=== PATIENT | male | born 1935 | race Caucasian/White ===

== ENCOUNTER 2017-08-01 08:28 | Emergency (ER) | payer OTHER ==
[~2017-08-01] VITALS: Ht 167.6 cm; Wt 84.4 kg
[~2017-08-01 08:28] MED LIST: ASPI81CH PO; DIPH50 PO; FAMO40 PO; INDO50 PO; METPRE4DP PO; NEBI10 PO; Percocet 5-3251 EACH PO
[2017-08-01] MEDS ORDERED: IBUP800 PO (10:50)
== END 2017-08-01 11:15 | disposition home or self-care (01) ==
LOC: ER 08:28
DX: M25.551 Pain in right hip (principal); I10 Essential (primary) hypertension; Z79.51 Long term (current) use of inhaled steroids; Z79.899 Other long term (current) drug therapy; Z87.891 Personal history of nicotine dependence; W19.XXXA Unspecified fall, initial encounter
CPT/HCPCS: 73502; 99283

== ENCOUNTER 2017-11-09 09:43 | Day surgery (SDC) | payer OTHER ==
[~2017-11-09] VITALS: Ht 167.6 cm; Wt 85.9 kg
[~2017-11-09 09:43] MED LIST changes: +IBUP800 PO
[2017-11-09] MEDS ORDERED: LISI20 (10:21)
[2017-11-09] MEDS ORDERED: TAMS.4ER (10:21)
== END 2017-11-09 13:10 | disposition home or self-care (01) ==
LOC: ORSCSDS 09:43
PROVIDERS: Internal Medicine Gastroenterology
PROC: 0DBL8ZX Excision of Transverse Colon, Via Natural or Artificial Opening Endoscopic, Diagnostic (ICD-10-PCS; principal; 2017-11-09 11:15)
PROC: 0DBK8ZX Excision of Ascending Colon, Via Natural or Artificial Opening Endoscopic, Diagnostic (ICD-10-PCS; principal; 2017-11-09 11:15)
DX: Z86.010 Personal history of colon polyps (principal); K57.30 Diverticulosis of large intestine without perforation or abscess without bleeding; D12.2 Benign neoplasm of ascending colon; D12.3 Benign neoplasm of transverse colon; K64.8 Other hemorrhoids; I10 Essential (primary) hypertension; E78.2 Mixed hyperlipidemia; Z79.82 Long term (current) use of aspirin; Z79.899 Other long term (current) drug therapy
CPT/HCPCS: 88305; J1980

== ENCOUNTER 2019-05-11 10:53 | Emergency (ER) | payer OTHER ==
[~2019-05-11] VITALS: Ht 170.2 cm; Wt 90.7 kg
[~2019-05-11 10:53] MED LIST changes: +LISI20; +TAMS.4ER
== END 2019-05-11 12:15 | disposition home or self-care (01) ==
LOC: ER 10:53
DX: S60.221A Contusion of right hand, initial encounter (principal); I10 Essential (primary) hypertension; Z79.899 Other long term (current) drug therapy; Z79.82 Long term (current) use of aspirin; Z87.891 Personal history of nicotine dependence; W01.0XXA Fall on same level from slipping, tripping and stumbling without subsequent striking against object, initial encounter
CPT/HCPCS: 29125; 73130; 99283-25

== ENCOUNTER 2020-02-21 16:12 | Emergency (ER) | payer OTHER ==
[~2020-02-21] VITALS: Ht 167.6 cm; Wt 90.7 kg
== END 2020-02-21 17:26 | disposition home or self-care (01) ==
LOC: ER 16:12
DX: M25.512 Pain in left shoulder (principal); Z79.82 Long term (current) use of aspirin; Z79.899 Other long term (current) drug therapy; V89.9XXA Person injured in unspecified vehicle accident, initial encounter
CPT/HCPCS: 73010; 99283-25

== ENCOUNTER 2020-06-20 12:58 | Emergency (ER) | payer OTHER ==
[~2020-06-20] VITALS: Ht 167.6 cm; Wt 99.8 kg
[~2020-06-20 12:58] MED LIST changes: -LISI20; +LISI20 PO; -TAMS.4ER; +TAMS.4ER PO
[2020-06-21] MEDS ORDERED: METO25ER PO (10:02)
[2020-06-21] MEDS ORDERED: OXYC10TA19 PO (10:03)
== END 2020-06-20 16:38 | disposition left against medical advice (07) ==
LOC: ER 12:58
DX: M79.605 Pain in left leg (principal); Z53.21 Procedure and treatment not carried out due to patient leaving prior to being seen by health care provider
CPT/HCPCS: 99282; 99283; J1644; J7030

== ENCOUNTER 2020-06-21 08:53 | Day surgery (SDC) | payer OTHER ==
[~2020-06-21] VITALS: Ht 167.6 cm; Wt 99.8 kg
[2020-06-21 09:50] LABS: BASOPHILS ABSOLUTE AUTO 0.07 K/mm3 (0.00-0.23); BASOPHILS PERCENT AUTO 1 % (0-2); EOSINOPHILS ABSOLUTE AUTO 0.04 K/mm3 (0.00-0.68); EOSINOPHILS PERCENT AUTO 1 % (0-6); Hematocrit 43.3 % (37.0-53.0); IMMATURE GRAN ABSOLUTE AUTO 0.01 K/mm3 (0.00-0.10); IMMATURE GRAN PERCENT AUTO 0 % (0-1); LYMPHOCYTES ABSOLUTE AUTO 1.75 K/mm3 (0.84-5.20); LYMPHOCYTES PERCENT AUTO 29 % (21-46); MONOCYTES ABSOLUTE AUTO 0.53 K/mm3 (0.16-1.47); MONOCYTES PERCENT AUTO 9 % (4-13); Mean Corpuscular HGB 30.8 pg (26.0-34.0); Mean Corpuscular HGB Conc 32.3 g/dL (31.5-36.5); Mean Corpuscular Volume 95 fL (80-100); Mean Platelet Volume 8.6 fL (9.1-12.4); NEUTROPHILS PERCENT AUTO 61 % (41-73); Platelet Count 174 K/mm3 (150-400); RDW Coefficient Variation 12.8 % (11.7-14.2); RDW Standard Deviation 45.1 fL (35.1-46.3); Red Blood Cell Count 4.54 M/mm3 (4.30-5.90)
[2020-06-21] MEDS ORDERED: METO25ER PO (10:02)
[2020-06-21] MEDS ORDERED: OXYC10TA19 PO (10:03)
[2020-06-21 10:08] LABS: Alanine Aminotransfer (ALT/SGP 16 U/L (12-78); Albumin, Blood 3.2 g/dL (3.4-5.0); Albumin/Globulin Ratio 0.8 (0.8-1.8); Alk Phos 108 U/L (50-136); Anion Gap 5 mmol/L (6-16); Aspartate Aminotrans (AST/SGOT 12 U/L (12-37); Bilirubin, Total 0.4 mg/dL (0.1-1.0); Blood Urea Nitrogen 11 mg/dL (8-24); Bun/Creatinine Ratio 11.8 (12.0-20.0); CO2, Blood 29 mmol/L (21-32); Calcium, Blood 8.3 mg/dL (8.5-10.1); Chloride, Blood 108 mmol/L (98-108); Creatinine, Blood 0.93 mg/dL (0.60-1.20); Globulin, Blood 3.8 g/dL (2.2-4.0); Glomerular Filtration Rate >60 (60-); Glucose, Blood 88 mg/dL (70-99); Sodium, Blood 142 mmol/L (136-145)
[2020-06-21 10:33] LABS: Influenza A, PCR Negative (NEGATIVE); Influenza B, PCR Negative (NEGATIVE); Resp Syncytial Virus, PCR Negative (NEGATIVE); SARS-Cov-2 (COVID-19) PCR, MMC Negative (NEGATIVE)
--- NOTE | 2020-06-21 16:07 | NUR ---
RIGHT LEG INSERTION SITE SOFT AND NONTENDER. DRESSING SARA AND INTACT. PATIENT ATE A SMALL MEAL AND IS NOW HAVING AN CARDIAC ECHO DONE.
--- NOTE | 2020-06-21 17:00 | NUR ---
PATIENT AMBULATED TO BATHROOM TO VOID WITH CANE. IV SITE DCED WITH CATHETER INTACT.
--- NOTE | 2020-06-21 17:10 | NUR ---
PATIENT DISCHARGED HOME STABLE. VERBALIZED UNDERSTANDING OF DISCHARGE INSTRUCTIONS AND PRECAUTIONS. QUESTIONS ANSWERED. DRESSING TO RIGHT LOWER LEG DRY AND INTACT. EXPLANATION OF PROCEDURE GIVEN TO DAUGHTERS. EXPLAINED NEED TO TAKE BLOOD THINNERS PRESCRIBED BY PRIMARY DOCTOR. TAKEN TO CAR IN WHEELCHAIR. ALERT AND ORIENTED.
== END 2020-06-21 17:10 | disposition home or self-care (01) ==
LOC: ER 08:53 → MHTC 13:16
PROVIDERS: Physician Assistant
DX: I82.401 Acute embolism and thrombosis of unspecified deep veins of right lower extremity (principal); Z87.891 Personal history of nicotine dependence; Z79.899 Other long term (current) drug therapy; Z79.82 Long term (current) use of aspirin; Z20.822 Contact with and (suspected) exposure to COVID-19
CPT/HCPCS: 0241U; 36010; 36415; 37187; 37238; 37252; 37253; 71046; 75820; 76937; 80053; 85025; 85347; 93306; 99152; 99153; 99284-25; C1725; C1757; C1769; C1876; C1887; C1894; J0360; J1644; J2250; J3010; J7030; Q9967

== ENCOUNTER 2023-05-14 05:53 | Day surgery (SDC) | payer OTHER ==
[2023-05-14] VITALS (19 sets, daily range): BP systolic 94–195; BP diastolic 46–149
[~2023-05-14] VITALS: Ht 160 cm; Wt 103.4 kg
[~2023-05-14 05:53] MED LIST changes: +BUME1 PO; +HYDR10 PO; +LORA10ER PO; +METO25ER PO; +METOPROLOL SUCC25 MG PO; +OXYC10TA19 PO; +Oxycodone HCl20 M1 PO; +PERCOCET 10-321 EA10 PO; +POTA10T PO; +TRAM50 PO
[2023-05-14] MEDS ORDERED: BUME1 PO (06:49)
[2023-05-14] MEDS ORDERED: ROSU10TA PO (06:50)
[2023-05-14] MEDS ORDERED: POTA10T PO (06:50)
[2023-05-14] MEDS ORDERED: ALBU90OI INH (06:51)
[2023-05-14] MEDS ORDERED: XARELTO20 MG PO (06:52)
[2023-05-14] MEDS ORDERED: LISI20 (06:53)
--- NOTE | 2023-05-14 07:06 | NUR ---
Wheelchaired into Day Surgery. History, Chart, Medications and Allergies reviewed before start of procedure. Pre-Op teaching done. Pt verbalizes understanding.
--- NOTE | 2023-05-14 16:52 | NUR ---
SHIFT SUMMARY PT A&OX3/OCC FORGETFUL, VSS/2LNC, NIKI PO REG DIET, VOIDING/INCONTINENT/ATTENDS ON, WORKING WITH PHYSICAL THERAPY AT THIS TIME, PAIN MANAGED, IVF/ABX PER EMAR. WILL REPORT TO ONCOMING NOC RN.
[2023-05-15 05:37] VITALS: BP 112/63
--- NOTE | 2023-05-15 06:17 | NUR ---
SHIFT SUMMARY POD 1 L BRYON PT ABLE TO SLEEP T/O NIGHT. PAIN MANAGED PER EMAR. TOLERATING PO INTAKE. INCONTINENT WITH VOIDING. SOME MILD BRUISING AROUND THE INCISION ON THE L HIP. PT UP IN CHAIR THIS MORNING, DRESSED. VSS. NO OTHER CONCERNS AT THIS TIME. CALL LIGHT WITHIN REACH
[2023-05-15 06:30] LABS: BASOPHILS ABSOLUTE AUTO 0.01 K/mm3 (0.00-0.23); BASOPHILS PERCENT AUTO 0 % (0-2); EOSINOPHILS PERCENT AUTO 0 % (0-6); Hematocrit 33.2 % (37.0-53.0); Hemoglobin 10.9 g/dL (13.5-17.5); IMMATURE GRAN ABSOLUTE AUTO 0.03 K/mm3 (0.00-0.10); IMMATURE GRAN PERCENT AUTO 0 % (0-1); LYMPHOCYTES ABSOLUTE AUTO 1.64 K/mm3 (0.84-5.20); LYMPHOCYTES PERCENT AUTO 18 % (21-46); MONOCYTES ABSOLUTE AUTO 0.84 K/mm3 (0.16-1.47); MONOCYTES PERCENT AUTO 9 % (4-13); Mean Corpuscular HGB Conc 32.8 g/dL (31.5-36.5); Mean Corpuscular Volume 101 fL (80-100); Mean Platelet Volume 9.4 fL (9.1-12.4); NEUTROPHILS ABSOLUTE AUTO 6.72 K/mm3 (1.96-9.15); NEUTROPHILS PERCENT AUTO 73 % (41-73); Platelet Count 99 K/mm3 (150-400); RDW Coefficient Variation 14.1 % (11.7-14.2); RDW Standard Deviation 51.8 fL (35.1-46.3); White Blood Cell Count 9.24 K/mm3 (4.00-11.30)
[2023-05-15 06:51] LABS: Bun/Creatinine Ratio 15.2 (12.0-20.0); Calcium, Blood 7.3 mg/dL (8.5-10.1); Creatinine, Blood 1.05 mg/dL (0.60-1.20); Magnesium, Blood 1.9 mg/dL (1.6-2.4); Potassium, Blood 3.7 mmol/L (3.5-5.5)
[2023-05-15 07:32] VITALS: BP 105/57
[2023-05-15] MEDS ORDERED: ELIQUIS2.5 MG PO (09:54)
[2023-05-15] MEDS ORDERED: OXYC5 PO (10:01)
[2023-05-15 12:45] VITALS: BP 93/49
[2023-05-15 13:45] LABS: Hematocrit 33.5 % (37.0-53.0); Hemoglobin 11.1 g/dL (13.5-17.5); Mean Corpuscular HGB 32.9 pg (26.0-34.0); Mean Corpuscular HGB Conc 33.1 g/dL (31.5-36.5); Mean Corpuscular Volume 99 fL (80-100); Mean Platelet Volume 9.3 fL (9.1-12.4); Platelet Count 105 K/mm3 (150-400); RDW Standard Deviation 50.9 fL (35.1-46.3); Red Blood Cell Count 3.37 M/mm3 (4.30-5.90); White Blood Cell Count 10.04 K/mm3 (4.00-11.30)
[2023-05-15 13:46] LABS: Base Excess Venous -0.1 mmol/L; Bicarbonate Venous 24.6 mmol/L (24.0-30.0); PCO2 Venous 33.9 mmHg (38-42); pH Blood Venous 7.46 (7.34-7.37)
[2023-05-15 14:14] LABS: Albumin, Blood 2.4 g/dL (3.4-5.0); Albumin/Globulin Ratio 0.8 (0.8-1.8); Bilirubin, Direct 0.6 mg/dL (0.0-0.3); Bilirubin, Indirect 0.6 mg/dL (0.1-0.7); Bilirubin, Total 1.2 mg/dL (0.1-1.0); Globulin, Blood 3.1 g/dL (2.2-4.0); Total Protein, Blood 5.5 g/dL (6.4-8.2)
[2023-05-15 15:22] VITALS: BP 113/57
[2023-05-15 16:39] LABS: Adenovirus F 40/41 Not Detected (NOT DETECT); Astrovirus Not Detected (NOT DETECT); Campylobacter Sp Not Detected (NOT DETECT); Cryptosporidium Not Detected (NOT DETECT); Cyclospora Cayetanensis Not Detected (NOT DETECT); E. Coli O157 Not Detected (NOT DETECT); Entamoeba Histolytica Not Detected (NOT DETECT); Enteroaggregative E. coli-EAEC Not Detected (NOT DETECT); Enteropathogenic E. coli-EPEC Not Detected (NOT DETECT); Enterotoxigenic E. coli-ETEC Not Detected (NOT DETECT); Giardia Lamblia Not Detected (NOT DETECT); Norovirus GI/GII Not Detected (NOT DETECT); Plesiomonas Shigelloides Not Detected (NOT DETECT); Rotavirus A Not Detected (NOT DETECT); Salmonella Sp Not Detected (NOT DETECT); Sapovirus Not Detected (NOT DETECT); Shiga Toxin-prod E. coli-STEC Not Detected (NOT DETECT); Shigella/Enteroin E. coli-EIEC Not Detected (NOT DETECT); Vibrio Cholerae Not Detected (NOT DETECT); Vibrio Sp Not Detected (NOT DETECT); Yersinia Enterocolitica Not Detected (NOT DETECT)
--- NOTE | 2023-05-15 18:02 | NUR ---
SHIFT SUMMARY PATIENT A/O X3 POD1 L BRYON, AQUACEL C/D/I W/ BRUISING SURROUNDING THE AREA. PATIENT HAS HAD SEVERAL BOUTS OF DIARRHEA AND VOMITING TODAY AND STOOL SAMPLE WAS SENT. DR GODDARD WAS NOTIFIED THAT IT CAME BACK DETECTED W/ C-DIFF. PATIENT WAS STARTED ON ORAL VANCO AT THIS TIME. CONTINUOUS FLUIDS RUNNING AT THIS TIME. VOIDING OKAY. NOT MUCH ORAL INTAKE TODAY. WILL REPORT TO ONCOMING RN.
[2023-05-15 20:21] VITALS: BP 102/43
[2023-05-16 03:45] VITALS: BP 105/52
--- NOTE | 2023-05-16 05:38 | NUR ---
SHIFT SUMMARY POD 2 L BRYON PT ABLE TO REST T/O NIGHT. PAIN MANAGED PER EMAR. AQUACEL TO L HIP C/D/I. PT HAS BRUISING TO THE L HIP, UNCHANGED SINCE START OF SHIFT. PT UP TO THE BATHROOM, NO SUCESS. NO BOWEL MOVEMENTS DURING THIS SHIFT. INCONTINENT. TOLERING PO INTAKE. VSS. NO OTHER CONCERNS AT THIS TIME. CALL LIGHT WITHIN REACH
[2023-05-16 08:06] VITALS: BP 121/58
--- NOTE | 2023-05-16 13:41 | NUR ---
ASSUMED CARE: ASSUMED CARE OF THIS PT @1340 FROM KEO HODGES. PT ALERT AND ORIENTED X4, ABLE TO FOLLOW COMMANDS AND MAKE NEEDS KNOWN. PULSES STRONG AND EQUAL THROUGHOUT. STRENGTH EQUAL BILATERALLY. VSS. PT POST OP X1 FOR TOTAL L. HIP, DENIES PAIN AT THIS TIME. +1 EDEMA NOTED IN BLE. AMBULATING VIA SBA WITH FWW/GAITBELT. CALLS APPROPRIATELY. LR GTT @70ML/HR. CURRENTLY SITTING UP IN BED WATCHING TV. BED IN LOW, CALL LIGHT IN REACH.
[2023-05-16 15:03] VITALS: BP 130/62
--- NOTE | 2023-05-16 17:19 | NUR ---
SHIFT SUMMARY: PT REMAINS ALERT AND ORIENTED X4, ABLE TO FOLLOW COMMANDS AND MAKE NEEDS KNOWN. STRENGTH WEAK, EQUAL BILATERALLY. BP AND HR STABLE. AFEBRILE. SPO2 >96% ON ROOM AIR. RESPIRATIONS EVEN AND UNLABORED. PULSES STRONG AND EQUAL THROUGHOUT. +2 EDEMA NOTED IN BLE, PT STATES BASELINE. PT POST OP DAY ONE FOR L. TOTAL HIP. DRESSING OVERALL C/D/I. PT ABLE TO AMBULATE IN HALLWAY THIS SHIFT VIA SBA WITH FWW/GAITBELT. BRUISING NOTED ON L. HIP, MD AWARE. PT MEDICATED FOR PAIN PER EMAR. LR GTT @70ML/HR IN L. FOREARM. PT WITH POOR PO INTAKE, EDUCATION PROVIDED. DAUGHTER AT BEDSIDE THIS EVENING, UPDATED ON PT PLAN OF CARE WITH PERMISSION. POSSIBLE DISCHARGE IN AM. BED IN LOW, CALL LIGHT IN REACH, WILL REPORT TO ONCOMING RN.
[2023-05-16 21:47] VITALS: BP 106/53
[2023-05-17 02:54] VITALS: BP 123/63
[2023-05-17 07:02] VITALS: BP 136/64
--- NOTE | 2023-05-17 07:45 | NUR ---
SHIFT SUMMARY NOC. PT A/O X4. PT'S LEFT LATERAL HIP INCISION IS C/D/I. PURPLE BRUISING AROUND INCISION PRESENT, DOCTOR AWARE PER DAY SHIFT RN'S REPORT. PT PAIN CONTROLLED WITH ORAL PAIN MEDS. PT INCONTINENT OF URINE AND TOLERATING PO INTAKE. PT RESTED WITH EYES CLOSED AND CALL LIGHT IN REACH.
[2023-05-17] MEDS ORDERED: VANCOCIN HCL125 MG PO (13:19)
--- NOTE | 2023-05-17 17:52 | NUR ---
DISCHARGE SUMMARY POD3 L BRYON, A/OX4, VSS, TOLERATING PO, ADVANCED DIET TO REGULAR AT LUNCH AND HE WAS ABLE TO TOLERATE THAT WELL, PER HOSPITALIST NOTE HE IS MEDICALLY STABLE AND CAN REFER TO ORTHO PLANS FOR DISCHARGE, ORTHO DISCHARGE ALREADY IN PLACE, ADDED ABX TO HOME MED LIST [facility] A 5 DAY COURSE. IV ACCESS REMOVED, DISCUSSED DISCHARGE INSTRUCTIONS WITH THE PATIENT AND HIS DAUGHTER INCLUDING HOME CARE, MEDICATIONS, S/SX TO MONITOR FOR, AND FOLLOW UP APPOINTMENTS. PT REPORTS NOT HAVING A FOLLOW UP ALREADY SCHEDULED, EDUCATED TO REACH OUT TO ORTHO TO GET THAT APPOINTMENT SET UP OR VERIFY THE TIME IF ONE WAS ALREADY SCHEDULED. PT ESCORTED OTU VIA WC TO PRIVATE AUTO TO GO HOME.
== END 2023-05-17 17:08 | disposition home or self-care (01) ==
LOC: ORSCMMR 05:53 → ORD 08:00 → SURS 13:05 → ORSCMMR 05-17 17:08 → ORD 06-01 07:30
PROVIDERS: Internal Medicine; Orthopaedic Surgery
PROC: 0SRB0JZ Replacement of Left Hip Joint with Synthetic Substitute, Open Approach (ICD-10-PCS; principal; 2023-05-14 08:00)
DX: M16.12 Unilateral primary osteoarthritis, left hip (principal); Z86.718 Personal history of other venous thrombosis and embolism; Z79.01 Long term (current) use of anticoagulants; E78.5 Hyperlipidemia, unspecified; I10 Essential (primary) hypertension; Z87.891 Personal history of nicotine dependence; Z79.899 Other long term (current) drug therapy; E66.9 Obesity, unspecified; Z68.37 Body mass index [BMI] 37.0-37.9, adult
CPT/HCPCS: 36415; 72170; 74177; 80048; 80076; 82140; 82803; 83735; 85025; 85027; 87324; 87507; 94760; 97110; 97116; 97162; A9270; C1776; J0171; J0360; J0690; J0735; J1100; J1170; J1885; J2250; J2405; J2704; J2765; J2795; J3010; J7120; Q9967

== ENCOUNTER 2023-05-19 12:18 | Emergency (ER) | payer OTHER ==
[~2023-05-19] VITALS: Ht 167.6 cm; Wt 106.6 kg
[~2023-05-19 12:18] MED LIST changes: +ALBU90OI INH; +ELIQUIS2.5 MG PO; +LISI20; +OXYC5 PO; +ROSU10TA PO; +VANCOCIN HCL125 MG PO; +XARELTO20 MG PO
[2023-05-19 12:41] LABS: BASOPHILS ABSOLUTE AUTO 0.04 K/mm3 (0.00-0.23); BASOPHILS PERCENT AUTO 1 % (0-2); EOSINOPHILS ABSOLUTE AUTO 0.15 K/mm3 (0.00-0.68); EOSINOPHILS PERCENT AUTO 2 % (0-6); Hematocrit 29.3 % (37.0-53.0); Hemoglobin 9.6 g/dL (13.5-17.5); IMMATURE GRAN ABSOLUTE AUTO 0.11 K/mm3 (0.00-0.10); IMMATURE GRAN PERCENT AUTO 2 % (0-1); LYMPHOCYTES ABSOLUTE AUTO 1.25 K/mm3 (0.84-5.20); LYMPHOCYTES PERCENT AUTO 19 % (21-46); MONOCYTES ABSOLUTE AUTO 1.11 K/mm3 (0.16-1.47); MONOCYTES PERCENT AUTO 17 % (4-13); Mean Corpuscular HGB 32.7 pg (26.0-34.0); Mean Corpuscular HGB Conc 32.8 g/dL (31.5-36.5); Mean Corpuscular Volume 100 fL (80-100); Mean Platelet Volume 8.8 fL (9.1-12.4); NEUTROPHILS ABSOLUTE AUTO 3.95 K/mm3 (1.96-9.15); NEUTROPHILS PERCENT AUTO 60 % (41-73); Platelet Count 213 K/mm3 (150-400); RDW Coefficient Variation 13.6 % (11.7-14.2); Red Blood Cell Count 2.94 M/mm3 (4.30-5.90); White Blood Cell Count 6.61 K/mm3 (4.00-11.30)
[2023-05-19 13:06] LABS: Albumin, Blood 2.3 g/dL (3.4-5.0); Albumin/Globulin Ratio 0.6 (0.8-1.8); Bun/Creatinine Ratio 13.7 (12.0-20.0); Calcium, Blood 7.9 mg/dL (8.5-10.1); Creatinine, Blood 0.8 mg/dL (0.60-1.20); Globulin, Blood 4.1 g/dL (2.2-4.0); Potassium, Blood 3.7 mmol/L (3.5-5.5); Total Protein, Blood 6.4 g/dL (6.4-8.2)
[2023-05-19 17:00] VITALS: BP 154/98
== END 2023-05-19 17:15 | disposition home or self-care (01) ==
LOC: ER 12:18
PROVIDERS: Physician Assistant
DX: G89.18 Other acute postprocedural pain (principal); M25.552 Pain in left hip; A04.72 Enterocolitis due to Clostridium difficile, not specified as recurrent; I10 Essential (primary) hypertension; F17.220 Nicotine dependence, chewing tobacco, uncomplicated; Z79.899 Other long term (current) drug therapy; Z79.01 Long term (current) use of anticoagulants
CPT/HCPCS: 71045; 80053; 85025; 93971; 96374; 99284-25; J2405

== ENCOUNTER 2023-09-25 19:27 | Inpatient (IN) | payer OTHER ==
[~2023-09-25] VITALS: Ht 167.6 cm; Wt 114.9 kg
[2023-09-27 07:54] VITALS: BP 145/75
== END 2023-09-27 14:22 | disposition home or self-care (01) | DRG 291 ==
LOC: ER 19:27 → MEDS 19:28
PROVIDERS: ADMIT Student in an Organized Health Care Education/Training Program
DX: I13.0 Hypertensive heart and chronic kidney disease with heart failure and stage 1 through stage 4 chronic kidney disease, or unspecified chronic kidney disease (principal); I50.33 Acute on chronic diastolic (congestive) heart failure; N40.0 Benign prostatic hyperplasia without lower urinary tract symptoms; Z66 Do not resuscitate; K76.0 Fatty (change of) liver, not elsewhere classified; F10.90 Alcohol use, unspecified, uncomplicated; N18.2 Chronic kidney disease, stage 2 (mild); E66.9 Obesity, unspecified; E78.5 Hyperlipidemia, unspecified; F17.220 Nicotine dependence, chewing tobacco, uncomplicated; Z86.718 Personal history of other venous thrombosis and embolism; Z79.01 Long term (current) use of anticoagulants; Z90.49 Acquired absence of other specified parts of digestive tract; Z98.890 Other specified postprocedural states; Z79.899 Other long term (current) drug therapy; Z79.811 Long term (current) use of aromatase inhibitors; Z68.37 Body mass index [BMI] 37.0-37.9, adult

== ENCOUNTER → 2023-11-02 | Outpatient (CLI) | payer OTHER ==
[~2023-11-02] MED LIST changes: +JARDIANCE10 MG PO; +MICONAZOLE NITR85 GM TOP; -OXYC5 PO; +ZESTRIL40 M1 PO
[2023-11-02 14:30] LABS: BASOPHILS ABSOLUTE AUTO 0.04 K/mm3 (0.00-0.23); BASOPHILS PERCENT AUTO 1 % (0-2); EOSINOPHILS ABSOLUTE AUTO 0.04 K/mm3 (0.00-0.68); EOSINOPHILS PERCENT AUTO 1 % (0-6); Hematocrit 41.1 % (37.0-53.0); Hemoglobin 13.4 g/dL (13.5-17.5); IMMATURE GRAN ABSOLUTE AUTO 0.02 K/mm3 (0.00-0.10); IMMATURE GRAN PERCENT AUTO 0 % (0-1); LYMPHOCYTES ABSOLUTE AUTO 1.72 K/mm3 (0.84-5.20); LYMPHOCYTES PERCENT AUTO 32 % (21-46); MONOCYTES ABSOLUTE AUTO 0.34 K/mm3 (0.16-1.47); MONOCYTES PERCENT AUTO 6 % (4-13); Mean Corpuscular HGB 30.2 pg (26.0-34.0); Mean Corpuscular HGB Conc 32.6 g/dL (31.5-36.5); Mean Corpuscular Volume 93 fL (80-100); Mean Platelet Volume 9.1 fL (9.1-12.4); NEUTROPHILS ABSOLUTE AUTO 3.28 K/mm3 (1.96-9.15); NEUTROPHILS PERCENT AUTO 60 % (41-73); Platelet Count 193 K/mm3 (150-400); RDW Coefficient Variation 13.6 % (11.7-14.2); RDW Standard Deviation 46.5 fL (35.1-46.3); Red Blood Cell Count 4.43 M/mm3 (4.30-5.90); White Blood Cell Count 5.44 K/mm3 (4.00-11.30)
[2023-11-02 14:46] LABS: Alanine Aminotransfer (ALT/SGP 20 U/L (12-78); Albumin, Blood 3.4 g/dL (3.4-5.0); Albumin/Globulin Ratio 0.9 (0.8-1.8); Alk Phos 77 U/L (50-136); Anion Gap 8 mmol/L (3-11); Aspartate Aminotrans (AST/SGOT 21 U/L (12-37); Bilirubin, Total 0.7 mg/dL (0.1-1.0); Blood Urea Nitrogen 15 mg/dL (8-24); CO2, Blood 30 mmol/L (21-32); Calcium, Blood 8.4 mg/dL (8.5-10.1); Chloride, Blood 103 mmol/L (98-108); Cholesterol 141 mg/dL (50-200); Creatinine, Blood 0.94 mg/dL (0.60-1.20); Globulin, Blood 3.7 g/dL (2.2-4.0); Glomerular Filtration Rate 79 (60-); Glucose, Blood 117 mg/dL (70-99); HDL Cholesterol 70 mg/dL (>39); LDL/HDL RATIO 0.7; Low Density Lipoprotein Chol 52 mg/dL (0-110); Potassium, Blood 3.6 mmol/L (3.5-5.5); Sodium, Blood 137 mmol/L (136-145); Total Protein, Blood 7.1 g/dL (6.4-8.2); Triglycerides 94 mg/dL (30-160); Very Low Density Lipoprot Chol 18 mg/dL (6-32)
== END | disposition home or self-care (01) ==
LOC: LAB SHORT 13:30 → LAB 13:30
PROVIDERS: Family Medicine
DX: Z13.1 Encounter for screening for diabetes mellitus (principal); I50.32 Chronic diastolic (congestive) heart failure; L03.116 Cellulitis of left lower limb
CPT/HCPCS: 80053; 80061; 83036; 85025

== ENCOUNTER → 2024-02-29 | Outpatient (CLI) | payer OTHER ==
[~2024-02-29] MED LIST changes: +CALC.25 PO; +Crestor40 MG PO; +FURO80 PO; +LOSA25 PO; -ROSU10TA PO
[2024-02-29 16:32] LABS: BASOPHILS ABSOLUTE AUTO 0.04 K/mm3 (0.00-0.23); BASOPHILS PERCENT AUTO 0 % (0-2); EOSINOPHILS ABSOLUTE AUTO 0.02 K/mm3 (0.00-0.68); EOSINOPHILS PERCENT AUTO 0 % (0-6); Hematocrit 35.5 % (37.0-53.0); Hemoglobin 11.5 g/dL (13.5-17.5); IMMATURE GRAN ABSOLUTE AUTO 0.05 K/mm3 (0.00-0.10); IMMATURE GRAN PERCENT AUTO 1 % (0-1); LYMPHOCYTES ABSOLUTE AUTO 1.46 K/mm3 (0.84-5.20); LYMPHOCYTES PERCENT AUTO 16 % (21-46); MONOCYTES PERCENT AUTO 12 % (4-13); Mean Corpuscular HGB 31.6 pg (26.0-34.0); Mean Corpuscular HGB Conc 32.4 g/dL (31.5-36.5); Mean Corpuscular Volume 98 fL (80-100); NEUTROPHILS ABSOLUTE AUTO 6.43 K/mm3 (1.96-9.15); NEUTROPHILS PERCENT AUTO 71 % (41-73); NRBC ABSOLUTE 0.02 K/mm3 (0.00-0.02); NRBC Auto 0.2 /100 WBC (0.0-0.2); Platelet Count 212 K/mm3 (150-400); RDW Coefficient Variation 14.1 % (11.7-14.2); RDW Standard Deviation 50.8 fL (35.1-46.3); Red Blood Cell Count 3.64 M/mm3 (4.30-5.90)
[2024-02-29 22:54] LABS: Alanine Aminotransfer (ALT/SGP 15 U/L (12-78); Albumin, Blood 2.9 g/dL (3.4-5.0); Albumin/Globulin Ratio 0.7 (0.8-1.8); Alk Phos 88 U/L (50-136); Anion Gap 12 mmol/L (3-11); Aspartate Aminotrans (AST/SGOT 13 U/L (12-37); Bilirubin, Total 1.1 mg/dL (0.1-1.0); CHOL/HDL RATIO 1.6; CO2, Blood 28 mmol/L (21-32); Calcium, Blood 8.4 mg/dL (8.5-10.1); Chloride, Blood 100 mmol/L (98-108); Cholesterol 129 mg/dL (50-200); Creatinine, Blood 1.26 mg/dL (0.60-1.20); Globulin, Blood 4.3 g/dL (2.2-4.0); Glomerular Filtration Rate 56 (60-); Glucose, Blood 123 mg/dL (70-99); HDL Cholesterol 80 mg/dL (>39); LDL/HDL RATIO 0.4; Low Density Lipoprotein Chol 32 mg/dL (0-110); Potassium, Blood 4.1 mmol/L (3.5-5.5); Sodium, Blood 136 mmol/L (136-145); Total Protein, Blood 7.2 g/dL (6.4-8.2); Triglycerides 84 mg/dL (30-160); Very Low Density Lipoprot Chol 16 mg/dL (6-32)
[2024-02-29 23:01] LABS: Blood Urea Nitrogen 22 mg/dL (8-24); Bun/Creatinine Ratio 17.5 (12.0-20.0)
== END | disposition home or self-care (01) ==
LOC: LAB SHORT 15:13 → LAB 15:13
PROVIDERS: Family Medicine
DX: I11.0 Hypertensive heart disease with heart failure (principal); I50.32 Chronic diastolic (congestive) heart failure
CPT/HCPCS: 80053; 80061; 83880; 84443; 85025

== ENCOUNTER 2024-03-02 03:03 | Day surgery (SDC) | payer OTHER ==
[~2024-03-02 03:03] MED LIST changes: -CALC.25 PO; -FURO80 PO; -LOSA25 PO
[2024-03-02] MEDS ORDERED: FURO80 PO (22:46)
[2024-03-02] MEDS ORDERED: LOSA25 PO (22:46)
[2024-03-02] MEDS ORDERED: CALC.25 PO (22:50)
== END 2024-03-02 23:49 | disposition home or self-care (01) ==
LOC: WOUND 03:03
DX: I87.313 Chronic venous hypertension (idiopathic) with ulcer of bilateral lower extremity (principal); L97.822 Non-pressure chronic ulcer of other part of left lower leg with fat layer exposed; L97.812 Non-pressure chronic ulcer of other part of right lower leg with fat layer exposed; I73.9 Peripheral vascular disease, unspecified; I13.0 Hypertensive heart and chronic kidney disease with heart failure and stage 1 through stage 4 chronic kidney disease, or unspecified chronic kidney disease; N18.31 Chronic kidney disease, stage 3a; I50.9 Heart failure, unspecified; Z87.891 Personal history of nicotine dependence
CPT/HCPCS: A6196; A6213; G0463

== ENCOUNTER 2024-03-02 14:17 | Inpatient (IN) | payer OTHER ==
[~2024-03-02] VITALS: Ht 172.7 cm; Wt 83.0 kg
[2024-03-02 15:22] LABS: BASOPHILS ABSOLUTE AUTO 0.05 K/mm3 (0.00-0.23); BASOPHILS PERCENT AUTO 1 % (0-2); EOSINOPHILS ABSOLUTE AUTO 0.04 K/mm3 (0.00-0.68); EOSINOPHILS PERCENT AUTO 0 % (0-6); Hematocrit 32.8 % (37.0-53.0); Hemoglobin 10.6 g/dL (13.5-17.5); IMMATURE GRAN PERCENT AUTO 1 % (0-1); LYMPHOCYTES ABSOLUTE AUTO 1.54 K/mm3 (0.84-5.20); LYMPHOCYTES PERCENT AUTO 16 % (21-46); MONOCYTES ABSOLUTE AUTO 0.94 K/mm3 (0.16-1.47); MONOCYTES PERCENT AUTO 10 % (4-13); Mean Corpuscular HGB 31.1 pg (26.0-34.0); Mean Corpuscular HGB Conc 32.3 g/dL (31.5-36.5); Mean Corpuscular Volume 96 fL (80-100); Mean Platelet Volume 8.3 fL (9.1-12.4); NEUTROPHILS ABSOLUTE AUTO 7.24 K/mm3 (1.96-9.15); NEUTROPHILS PERCENT AUTO 73 % (41-73); Platelet Count 219 K/mm3 (150-400); RDW Coefficient Variation 14.5 % (11.7-14.2); RDW Standard Deviation 50.9 fL (35.1-46.3); Red Blood Cell Count 3.41 M/mm3 (4.30-5.90); White Blood Cell Count 9.91 K/mm3 (4.00-11.30)
[2024-03-02 15:34] LABS: Albumin, Blood 2.6 g/dL (3.4-5.0); Albumin/Globulin Ratio 0.6 (0.8-1.8); Bilirubin, Total 1.1 mg/dL (0.1-1.0); Bun/Creatinine Ratio 17.4 (12.0-20.0); Calcium, Blood 8.5 mg/dL (8.5-10.1); Creatinine, Blood 1.44 mg/dL (0.60-1.20); Globulin, Blood 4.6 g/dL (2.2-4.0); Total Protein, Blood 7.2 g/dL (6.4-8.2)
[2024-03-02] MEDS ORDERED: Ipratropium/Albuterol SulF 2.5-0.5MG/3 ML Amp INH ONE (18:00)
[2024-03-02] MEDS ORDERED: MethylPREDNISolone Sod Succ 125 MG Vial IV ONE (18:00)
[2024-03-02] MEDS ORDERED: Albuterol 2.5 MG/3 ML VIAL INH PRN (19:25)
[2024-03-02] MEDS ORDERED: Ipratropium/Albuterol SulF 2.5-0.5MG/3 ML Amp INH SCH (19:25)
[2024-03-02] MEDS ORDERED: Furosemide 10 MG/ML 4ML Vial IV SCH (20:00)
[2024-03-02] MEDS ORDERED: OxyCODONE HCL 20 MG TABCR PO SCH (20:00)
[2024-03-02] MEDS ORDERED: Ondansetron HCl 2 MG / ML 2ML Vial IV PRN (20:45)
[2024-03-02] MEDS ORDERED: FLU VACC TS2024-25(6MOS UP)/PF 45 MCG/0.5 ML SYRINGE IM ONE (20:45)
[2024-03-02] MEDS ORDERED: Rosuvastatin Calcium 10 MG Tab PO SCH (21:00)
[2024-03-02] MEDS ORDERED: Metoprolol Succinate 25 MG TABCR PO SCH (21:00)
[2024-03-02] MEDS ORDERED: Sennosides 8.6 MG Tab PO SCH (21:00)
[2024-03-02] MEDS ORDERED: Apixaban 5 MG Tab PO SCH (21:00)
[2024-03-02 22:19] VITALS: BP 138/73
[2024-03-02] MEDS ORDERED: FURO80 PO (22:46)
[2024-03-02] MEDS ORDERED: LOSA25 PO (22:46)
[2024-03-02] MEDS ORDERED: CALC.25 PO (22:50)
[2024-03-02 23:23] LABS: Adenovirus Not Detected (NOT DETECT); Bordetella pertussis Not Detected (NOT DETECT); Chlamydophila pneumoniae Not Detected (NOT DETECT); Coronavirus 229E Not Detected (NOT DETECT); Coronavirus HKU1 Not Detected (NOT DETECT); Coronavirus NL63 Not Detected (NOT DETECT); Coronavirus OC43 Not Detected (NOT DETECT); Human Metapneumovirus Not Detected (NOT DETECT); Human Rhinovirus/Enterovirus Not Detected (NOT DETECT); Influenza A/2009-H1 Not Detected (NOT DETECT); Influenza A/H1 Not Detected (NOT DETECT); Influenza A/H3 Not Detected (NOT DETECT); Influenza B Not Detected (NOT DETECT); Mycoplasma pneumoniae Not Detected (NOT DETECT); Parainfluenza Virus 1 Not Detected (NOT DETECT); Parainfluenza Virus 2 Not Detected (NOT DETECT); Parainfluenza Virus 3 Not Detected (NOT DETECT); Parainfluenza Virus 4 Not Detected (NOT DETECT); Respiratory Syncytial Virus Not Detected (NOT DETECT); SARS-Cov-2 (COVID-19), BioFire Not Detected (NOT DETECT)
[2024-03-02] MEDS ORDERED: Peg 400/Hypromellose/Glycerin 15 DROP/ML BTL RIGHTEYE SCH (23:45)
[2024-03-03] MEDS ORDERED: Melatonin 3 MG Tab PO PRN (00:35)
[2024-03-03 03:41] VITALS: BP 127/79
--- NOTE | 2024-03-03 05:30 | NUR ---
SHIFT SUMMARY ASSUMED CARE OF THIS PT AT 2215. PT WAS FRIENDLY AND COOPERATIVE. HE IS HARD OF HEARING, AND HAS A FULL SET OF DENTURES. HIS BOTTOM DENTURE IS AT HOME. TOP DENTURE IS WITH HIM. PT STATED HE NEEDED SOMETHING TO HELP HIM SLEEP. DOCTOR PRESCRIBED MELATONIN PRN HS. HIS RIGHT EYE HAS SOME YELLOW DRAINAGE AND DISCHARGE. EYEDROPS ARE IN HIS LOCKED DRAWER TO BE GIVEN PRN FOR THICK BUILD-UP. DAUGHTER WILL BE BACK IN AM. CALL LIGHT WITHIN REACH. WILL PASS ON TO DAY SHIFT.
[2024-03-03 05:33] LABS: Hemoglobin 11.1 g/dL (13.5-17.5); Mean Corpuscular HGB 30.9 pg (26.0-34.0); Mean Corpuscular HGB Conc 31.7 g/dL (31.5-36.5); Mean Corpuscular Volume 98 fL (80-100); Mean Platelet Volume 8.7 fL (9.1-12.4); Platelet Count 243 K/mm3 (150-400); RDW Coefficient Variation 14.2 % (11.7-14.2); RDW Standard Deviation 50.3 fL (35.1-46.3); Red Blood Cell Count 3.59 M/mm3 (4.30-5.90); White Blood Cell Count 8.89 K/mm3 (4.00-11.30)
[2024-03-03 05:53] LABS: Bun/Creatinine Ratio 18.5 (12.0-20.0); Calcium, Blood 8.5 mg/dL (8.5-10.1); Creatinine, Blood 1.51 mg/dL (0.60-1.20); Magnesium, Blood 2.4 mg/dL (1.6-2.4); Potassium, Blood 4.6 mmol/L (3.5-5.5)
[2024-03-03 07:50] VITALS: BP 138/82
[2024-03-03] MEDS ORDERED: Potassium Chloride 10 Meq Tablet SA PO SCH (08:00)
[2024-03-03] MEDS ORDERED: MethylPREDNISolone Sod Succ 40 MG VIAL IV SCH (09:00)
[2024-03-03] MEDS ORDERED: Miconazole Nitrate 2% 85 GM PWD TOP SCH (09:00)
[2024-03-03] MEDS ORDERED: Tamsulosin HCl 0.4 MG Cap PO SCH (09:00)
[2024-03-03 14:54] VITALS: BP 131/88
--- NOTE | 2024-03-03 18:34 | NUR ---
REPORT RECEIVED VERIFIED ENTERED ROOM AND PT STATED HE FELF GREAT AND WOULD LIKE TO GO HOME, I STATED WE WOULD WAIT FOR MD TO MAKE THAT DECISION. PURWIC IN PLACE FOR WEAKNESS AND FREQUENCY IN URINATION AND SOME BREAKDOWN. DR HERNANDEZ AT BEDSIDE AND PT WILL BE STAYING OVER NIGHT. PT THOUGHTOUT THEW DAY BEGAN TO FEEL BETTER, PURWIC WAS REMOVED AND PT WAS ASSISTED TO BATHROOM FOR SHOWER WITHOUT O2. PT SPENT ABOUT 45 MIN OFF O2 WITHOUT ANY SOB, WHEN RECHECKED PT WAS AT 96% RA. WILL LEAVE OFF O2 FOR NOW. RT AWARE.
[2024-03-03 20:42] VITALS: BP 121/67
[2024-03-04 03:28] VITALS: BP 125/70
--- NOTE | 2024-03-04 05:08 | NUR ---
SHIFT SUMMARY PT AWAKE AND IN PLEASANT MOOD AT START OF SHIFT. REQUESTED PAIN MEDS AND SLEEP AIDES FOR THE EVENING. DAUGHTER ARRIVED JUST AFTER BEDSIDE REPORT. SHE HAD QUESTIONS ABOUT DOCTOR WHO ROUNDED ON PT TODAY. THIS RN INFORMED HER THAT PT HAD IMAGING TODAY, AND IF THEY NEEDED COPIES OF PT RECORDS, SHE WOULD NEED TO CONTACT PATIENT RECORDS. SHE WAS GRATEFUL FOR THE INFORMATION. PT RECEPTIVE TO CARE PROVIDED. UPON 2229 ROUNDING, PT SLEEPING PEACEFULLY IN BED WITH LIGHTS OFF. PT HAS REMAINED STABLE. WILL RELAY TO DAY SHIFT RN.
[2024-03-04 07:42] LABS: Bun/Creatinine Ratio 27.3 (12.0-20.0); Calcium, Blood 8.5 mg/dL (8.5-10.1); Creatinine, Blood 1.32 mg/dL (0.60-1.20); Potassium, Blood 4.7 mmol/L (3.5-5.5)
[2024-03-04 07:52] VITALS: BP 120/62
[2024-03-04] MEDS ORDERED: Furosemide 80 MG Tab PO SCH (09:00)
[2024-03-04] MEDS ORDERED: PRED20 PO (12:34)
--- NOTE | 2024-03-04 13:43 | NUR ---
DISHCARGE SUMMARY PATIENT A/OX4 ABLE TO MAKE NEEDS KNOWN. PATIENT AND FAMILY INSTRUCTED ON DISCHARGE ORDERS INCLUDING HAVING PCP APPOINTMENT WITHIN 3 DAYS WITH LAB WORK. ALSO INSTRUCTED TO STOP TAKING LISINIPRIL AND DO NOT CHEYENNE LOSARTAN UNTIL SEEN BY PCP. PATIENT AND FAMILY WIH QUESTIONS REGARDING INSURANCE AT TIME OF DISCHARGE AND CASE MANAGEMENT HAD DISCUSSION WITH THEM. HARD PRESCCRIPTION FOR LAB WORK GIVEN TO FAMILY WITH DISCHARGE PAPERWORK. PATIENT'S DAUGHTER INSTRUCTED ON HOW TO CHANGE DRESSING TO BILATERAL LOWER LEGS AND DRESSING'S WERE CHANGED PRIOR TO DISCHARGE. PIV REMOVED. PATIENT AND FAMILY WITH NO OTHER QUESTIONS. MEDICATIONS FAXED TO [facility] PER DAUGHTER'S REQUEST. PATIENT ASSISTED TO FAMILY VEHICLE VIA WHEELCHAIR WITH ALL BELINGINGS. NO OTHER CONCERNS AT THIS TIME.
== END 2024-03-04 13:39 | disposition home or self-care (01) | DRG 189 ==
LOC: ER 14:17 → MEDS 20:43 → ENPENDDIS 03-04 12:38 → MEDS 03-04 13:39
PROVIDERS: Nurse Practitioner Acute Care; Physician Assistant; Student in an Organized Health Care Education/Training Program; ADMIT Internal Medicine
DX: J96.01 Acute respiratory failure with hypoxia (principal); N17.9 Acute kidney failure, unspecified; E87.1 Hypo-osmolality and hyponatremia; I50.32 Chronic diastolic (congestive) heart failure; L97.819 Non-pressure chronic ulcer of other part of right lower leg with unspecified severity; L97.829 Non-pressure chronic ulcer of other part of left lower leg with unspecified severity; Z66 Do not resuscitate; J98.01 Acute bronchospasm; B97.89 Other viral agents as the cause of diseases classified elsewhere; I83.018 Varicose veins of right lower extremity with ulcer other part of lower leg; I83.028 Varicose veins of left lower extremity with ulcer other part of lower leg; I11.0 Hypertensive heart disease with heart failure; N40.0 Benign prostatic hyperplasia without lower urinary tract symptoms; E78.5 Hyperlipidemia, unspecified; Z96.642 Presence of left artificial hip joint; Z79.899 Other long term (current) drug therapy; Z79.01 Long term (current) use of anticoagulants; Z86.718 Personal history of other venous thrombosis and embolism; Z90.49 Acquired absence of other specified parts of digestive tract; Z79.84 Long term (current) use of oral hypoglycemic drugs; Z87.891 Personal history of nicotine dependence
CPT/HCPCS: 0202U; 36415; 71046; 80048; 80053; 83735; 83880; 84484; 85025; 85027; 93005; 93010; 93970; 94640; 94664; 94760; 96374; 96375; 99285-25; A9270; J1940; J2919

== ENCOUNTER 2024-03-09 01:39 | Day surgery (SDC) | payer OTHER ==
[~2024-03-09 01:39] MED LIST changes: +CALC.25 PO; +FURO80 PO; +LOSA25 PO; +PRED20 PO
== END 2024-03-09 23:28 | disposition home or self-care (01) ==
LOC: WOUND 01:39
DX: I87.312 Chronic venous hypertension (idiopathic) with ulcer of left lower extremity (principal); L03.116 Cellulitis of left lower limb; I87.2 Venous insufficiency (chronic) (peripheral); I73.9 Peripheral vascular disease, unspecified; N28.9 Disorder of kidney and ureter, unspecified; I50.9 Heart failure, unspecified
CPT/HCPCS: G0463

== ENCOUNTER 2024-03-15 20:49 | Inpatient (IN) | payer OTHER ==
[~2024-03-15] VITALS: Ht 170.2 cm; Wt 110.8 kg
[2024-03-15 21:35] LABS: BASOPHILS ABSOLUTE AUTO 0.05 K/mm3 (0.00-0.23); BASOPHILS PERCENT AUTO 0 % (0-2); EOSINOPHILS PERCENT AUTO 0 % (0-6); Hematocrit 34.7 % (37.0-53.0); Hemoglobin 11.2 g/dL (13.5-17.5); IMMATURE GRAN ABSOLUTE AUTO 0.08 K/mm3 (0.00-0.10); IMMATURE GRAN PERCENT AUTO 1 % (0-1); LYMPHOCYTES ABSOLUTE AUTO 1.05 K/mm3 (0.84-5.20); LYMPHOCYTES PERCENT AUTO 8 % (21-46); MONOCYTES ABSOLUTE AUTO 1.24 K/mm3 (0.16-1.47); MONOCYTES PERCENT AUTO 10 % (4-13); Mean Corpuscular HGB 30.6 pg (26.0-34.0); Mean Corpuscular HGB Conc 32.3 g/dL (31.5-36.5); Mean Corpuscular Volume 95 fL (80-100); Mean Platelet Volume 8.8 fL (9.1-12.4); NEUTROPHILS ABSOLUTE AUTO 10.53 K/mm3 (1.96-9.15); NEUTROPHILS PERCENT AUTO 81 % (41-73); Platelet Count 193 K/mm3 (150-400); RDW Coefficient Variation 14.2 % (11.7-14.2); RDW Standard Deviation 49.7 fL (35.1-46.3); Red Blood Cell Count 3.66 M/mm3 (4.30-5.90); White Blood Cell Count 12.95 K/mm3 (4.00-11.30)
[2024-03-15 22:01] LABS: Albumin, Blood 2.5 g/dL (3.4-5.0); Albumin/Globulin Ratio 0.6 (0.8-1.8); Calcium, Blood 8.4 mg/dL (8.5-10.1); Creatinine, Blood 2.28 mg/dL (0.60-1.20); Globulin, Blood 4.4 g/dL (2.2-4.0); Total Protein, Blood 6.9 g/dL (6.4-8.2)
[2024-03-15 22:54] LABS: International Normalized Ratio 1.17; Prothrombin Time Results 12.4 Sec (9.7-11.5)
[2024-03-15 22:57] LABS: Source, Urine Voided
[2024-03-15 23:02] LABS: Bilirubin, Urine Neg (Neg); Blood, Urine 4+ (Neg); Glucose Qualitative, Urine 3+ (Neg); Ketones, Urine 1+ (Neg); Leukocyte Esterase, Urine 2+ (Neg); Nitrite, Urine Neg (Neg); Protein, Urine 2+ (Neg); Specific Gravity, Urine 1.015 (1.003-1.022); Urobilinogen, Urine NORM (Normal)
[2024-03-15 23:10] LABS: Appearance, Urine Cloudy (Clear); Color, Urine Yellow (P-Yellow)
[2024-03-15 23:11] LABS: Amorphous Heavy (0-Heavy); Bacteria Mod /hpf; Mucus Light (0-Heavy); Squamous Epithelial Cells Not Seen /hpf (Few); White Blood Cells, Urine 25-50 /hpf (0-5)
[2024-03-15 23:12] LABS: Influenza A, PCR NEGATIVE (NEGATIVE); Influenza B, PCR NEGATIVE (NEGATIVE); Resp Syncytial Virus, PCR NEGATIVE (NEGATIVE); SARS-Cov-2 (COVID-19) PCR, MMC NEGATIVE (NEGATIVE)
[2024-03-15] MEDS ORDERED: CefTRIAXone Sodium 2,000 MG in NS 100 ML IV ONE (23:20)
[2024-03-16] MEDS ORDERED: NS 1,000 ML IV SCH (00:05)
[2024-03-16] MEDS ORDERED: FLU VACC TS2024-25(6MOS UP)/PF 45 MCG/0.5 ML SYRINGE IM ONE (00:50)
[2024-03-16] MEDS ORDERED: Ondansetron HCl 2 MG / ML 2ML Vial IV PRN (00:50)
[2024-03-16] MEDS ORDERED: Albuterol 2.5 MG/3 ML VIAL INH PRN (00:55)
[2024-03-16] MEDS ORDERED: Acetaminophen 325 MG TABLET PO PRN (00:55)
[2024-03-16] MEDS ORDERED: OxyCODONE HCL 5 MG TAB PO PRN (01:00)
[2024-03-16] MEDS ORDERED: Azithromycin 500 MG in NS 250 ML IV ONE (01:00)
[2024-03-16] MEDS ORDERED: Midodrine 5 MG Tab PO SCH (02:00)
[2024-03-16 05:48] LABS: BASOPHILS ABSOLUTE AUTO 0.04 K/mm3 (0.00-0.23); BASOPHILS PERCENT AUTO 0 % (0-2); EOSINOPHILS PERCENT AUTO 0 % (0-6); Hematocrit 29.6 % (37.0-53.0); Hemoglobin 9.7 g/dL (13.5-17.5); IMMATURE GRAN ABSOLUTE AUTO 0.04 K/mm3 (0.00-0.10); IMMATURE GRAN PERCENT AUTO 0 % (0-1); LYMPHOCYTES ABSOLUTE AUTO 1.47 K/mm3 (0.84-5.20); LYMPHOCYTES PERCENT AUTO 13 % (21-46); MONOCYTES ABSOLUTE AUTO 1.32 K/mm3 (0.16-1.47); MONOCYTES PERCENT AUTO 12 % (4-13); Mean Corpuscular HGB 31.2 pg (26.0-34.0); Mean Corpuscular HGB Conc 32.8 g/dL (31.5-36.5); Mean Corpuscular Volume 95 fL (80-100); Mean Platelet Volume 8.7 fL (9.1-12.4); NEUTROPHILS ABSOLUTE AUTO 8.46 K/mm3 (1.96-9.15); NEUTROPHILS PERCENT AUTO 75 % (41-73); Platelet Count 167 K/mm3 (150-400); RDW Coefficient Variation 14.5 % (11.7-14.2); RDW Standard Deviation 50.5 fL (35.1-46.3); Red Blood Cell Count 3.11 M/mm3 (4.30-5.90); White Blood Cell Count 11.33 K/mm3 (4.00-11.30)
[2024-03-16 06:11] LABS: Albumin, Blood 2.2 g/dL (3.4-5.0); Albumin/Globulin Ratio 0.6 (0.8-1.8); Bilirubin, Total 0.7 mg/dL (0.1-1.0); Bun/Creatinine Ratio 16.2 (12.0-20.0); Calcium, Blood 7.8 mg/dL (8.5-10.1); Creatinine, Blood 1.91 mg/dL (0.60-1.20); Globulin, Blood 3.8 g/dL (2.2-4.0); Magnesium, Blood 1.7 mg/dL (1.6-2.4); Potassium, Blood 3.7 mmol/L (3.5-5.5)
[2024-03-16] MEDS ORDERED: Acetaminophen 500 MG Tab PO PRN (07:15)
[2024-03-16] MEDS ORDERED: Polyethylene Glycol 3350 17 gm PO PRN (07:20)
[2024-03-16] MEDS ORDERED: Empagliflozin 10 MG TAB PO SCH (09:00)
[2024-03-16] MEDS ORDERED: Lactobacil 2-S.Thermo-Bifido 1 1 Cap PO SCH (09:00)
[2024-03-16] MEDS ORDERED: Furosemide 40 MG Tab PO SCH ×2 (09:00)
[2024-03-16] MEDS ORDERED: Apixaban 5 MG Tab PO SCH (09:00)
[2024-03-16] MEDS ORDERED: Metoprolol Succinate 25 MG TABCR PO SCH (09:00)
[2024-03-16] MEDS ORDERED: Calcitriol 0.25 MCG Cap PO SCH (09:00)
[2024-03-16] MEDS ORDERED: Heparin Sodium,Porcine 5,000 UNIT/0.5 ML SDV SC SCH (09:00)
[2024-03-16] MEDS ORDERED: Tamsulosin HCl 0.4 MG Cap PO SCH (09:00)
[2024-03-16] MEDS ORDERED: Rosuvastatin Calcium 10 MG Tab PO SCH (09:00)
--- NOTE | 2024-03-16 10:00 | NUR ---
ARRIVAL TP PCU 9 PT ARRIVED TO PCU 9 AT APPROXIMATELY 0950. PT SLID OVER FROM ER RBOWLING GREEN TO HOSPITAL BED BY 4 CLINICAL STAFF MEMBERS, DAUGHTER AT BEDSIDE. PT A&Ox4, CALLS AND COMMUNICATES NEEDS APPROPRIATELY, FORGETFUL AT TIMES WITH MOMENTS OF CONFUSION. BP STABLE, NO TELE, HR 80's, DENIES CP/PRESSURE. SpO2> 92% 2L VIA NC, DENIES SOB. BLOOD IN URINE IN ATTENDS WITH A FEW SMALL BLOOD CLOTS, DAUGHTER REPORTED THAT THE STRAIGHT CATH WAS A LITTLE TRAUMATIC. EXCORIATION ON R BUTTOCK, CLEANED, BARRIER CREAM & MEPILEX APPLIED; PHOTO IN CHART.BLE WARM TO TOUCH WITH REDNESS, PHOTOS IN CHART. C/O SEVERE PAIN IN L KNEE WHEN ROLLING, PT RESTING COMFORTABLE WHEN NOT BEING REPOSITIONED. ORIENTED TO CALL LIGHT / UNIT, CALL LIGHT IN REACH, BED IN LOWEST POSITION.
[2024-03-16 10:15] VITALS: BP 114/48
[2024-03-16 11:30] VITALS: BP 111/51
[2024-03-16 15:28] VITALS: BP 111/60
--- NOTE | 2024-03-16 17:09 | NUR ---
SHIFT SUMMARY SEE PREVIOUS NOTE, NO ACUTE CHANGES. VSS, T-MAX: 100.0, MEDICATED PER EMAR. 2L VIA, DENIES SOB. DENIES CP/PRESSURE. C/O L KNEE PAIN DURING REPOSITIONING. FAMILY AT BEDSIDE. NO OTHER EVENTS, WILL REPORT TO ONCOMING RN.
[2024-03-16 21:00] VITALS: BP 110/48
[2024-03-16] MEDS ORDERED: Docusate Sodium/Senna 1 Tab PO SCH (21:00)
[2024-03-16] MEDS ORDERED: CefTRIAXone Sodium 1,000 MG in NS 100 ML IV SCH (21:00)
[2024-03-16] MEDS ORDERED: Azithromycin 500 MG in NS 250 ML IV SCH (21:00)
--- NOTE | 2024-03-16 22:04 | NUR ---
THIS RN ASSUMED CARE OF PT AT 1900/ NEUROLOGICALLY PT WAS ALERT AND ORIENTED. PT HEART SOUNDS NORMAL, PT NOT COMPLAINING OF CHEST PAIN. RESPIRATORY STATUS WAS WITHIN NORMAL LIMITS, 2L NC, PT NOT COMPLAINING OF SOB. GI/ PT WAS NOT COMPLAINING OF ANY ISSUES, MALE Apiphany WAS WORKING. PLAN OF CARE CONTINUED.
--- NOTE | 2024-03-16 23:33 | NUR ---
PT WILL BE TRANSFERING TO MEDICAL FLOOR, NO NEW EVENTS TO REPORT OVER NIGHT. PT IS SLEEPING COMFORTABLY IN BED.
[2024-03-17 04:18] LABS: Hemoglobin 9.6 g/dL (13.5-17.5); Mean Corpuscular HGB 30.7 pg (26.0-34.0); Mean Corpuscular Volume 96 fL (80-100); Mean Platelet Volume 8.9 fL (9.1-12.4); Platelet Count 180 K/mm3 (150-400); RDW Coefficient Variation 14.6 % (11.7-14.2); RDW Standard Deviation 51.4 fL (35.1-46.3); Red Blood Cell Count 3.13 M/mm3 (4.30-5.90)
[2024-03-17 04:44] LABS: Ferritin, Serum 386 ng/mL (26-388); Iron Serum 14 ug/dL (65-175); Percent Saturation 6.5 % (20.0-50.0); Total Iron Binding Capacity 216 ug/dL (250-450)
[2024-03-17 04:45] LABS: Albumin, Blood 1.9 g/dL (3.4-5.0); Anion Gap 12 mmol/L (3-11); Blood Urea Nitrogen 23 mg/dL (8-24); Bun/Creatinine Ratio 16.7 (12.0-20.0); CO2, Blood 28 mmol/L (21-32); Calcium, Blood 8.3 mg/dL (8.5-10.1); Chloride, Blood 102 mmol/L (98-108); Creatinine, Blood 1.38 mg/dL (0.60-1.20); Glomerular Filtration Rate 50 (60-); Glucose, Blood 118 mg/dL (70-99); Phosphorus, Blood 2.7 mg/dL (2.5-4.9); Potassium, Blood 3.7 mmol/L (3.5-5.5); Sodium, Blood 138 mmol/L (136-145)
[2024-03-17 05:49] VITALS: BP 106/54
[2024-03-17] MEDS ORDERED: Vancomycin HCL 2,000 MG in NS 500 ML IV ONE (07:50)
[2024-03-17 08:50] VITALS: BP 95/48
[2024-03-17 11:33] VITALS: BP 101/87
[2024-03-17 15:26] VITALS: BP 103/54
--- NOTE | 2024-03-17 18:00 | NUR ---
END OF SHIFT PT MEDICAL NO TELEMETRY STATUS. A&O X4. VSS. SPO2 > 92% ON 2L NC, TITRATED TO RA W/ PT TOLERATING WELL. PT C/O PAIN "ALL OVER." PT MEDICATED PER EMAR/PT REQUEST W/ PT THEN DENYING PAIN UPON REASSESSMENT. PT HOWEVER REPORTING PAIN W/ TOUCH OF LLE. LLE RED & SWOLLEN. PT GONE TO IMAGING TODAY FOR ASPIRATION OF L KNEE. MD BREWSTER W/ ORDER FOR PT TO BE NPO AFTER MIDNIGHT FOR POSSIBLE SURGERY TOMORROW. PT AGREEABLE.
[2024-03-17 18:13] LABS: BODY FLUID RBC 0.013 M/mm3 (0-0)
[2024-03-17 18:29] LABS: RBC Count, Synovial Fluid 13000 /mm3 (0-0)
[2024-03-17 18:30] LABS: WBC Count, Synovial Fluid 96280 /mm3 (0-180)
[2024-03-17 19:50] LABS: Lymphs, Synovial Fluid 3 % (0-15); Monocytes/Macrophages, Synovia 6 % (0-65); Neutrophils, Synovial Fluid 91 % (0-24)
[2024-03-17 19:51] LABS: Color, Synovial Fluid Yellow (None-P Yel)
[2024-03-17 19:52] LABS: Appearance, Synovial Fluid Cloudy (Clear)
[2024-03-17 20:05] VITALS: BP 126/56
[2024-03-18 03:42] VITALS: BP 117/61
[2024-03-18 03:56] LABS: Hematocrit 30.1 % (37.0-53.0); Hemoglobin 9.7 g/dL (13.5-17.5); Mean Corpuscular HGB 31.4 pg (26.0-34.0); Mean Corpuscular HGB Conc 32.2 g/dL (31.5-36.5); Mean Corpuscular Volume 97 fL (80-100); Mean Platelet Volume 8.8 fL (9.1-12.4); Platelet Count 181 K/mm3 (150-400); RDW Coefficient Variation 14.5 % (11.7-14.2); RDW Standard Deviation 51.7 fL (35.1-46.3); Red Blood Cell Count 3.09 M/mm3 (4.30-5.90); White Blood Cell Count 8.52 K/mm3 (4.00-11.30)
[2024-03-18 04:18] LABS: Albumin, Blood 1.8 g/dL (3.4-5.0); Anion Gap 9 mmol/L (3-11); Blood Urea Nitrogen 20 mg/dL (8-24); CO2, Blood 29 mmol/L (21-32); Calcium, Blood 8.3 mg/dL (8.5-10.1); Chloride, Blood 102 mmol/L (98-108); Creatinine, Blood 1.11 mg/dL (0.60-1.20); Glomerular Filtration Rate 65 (60-); Glucose, Blood 122 mg/dL (70-99); Magnesium, Blood 2.1 mg/dL (1.6-2.4); Phosphorus, Blood 2.7 mg/dL (2.5-4.9); Potassium, Blood 3.8 mmol/L (3.5-5.5); Sodium, Blood 136 mmol/L (136-145)
--- NOTE | 2024-03-18 05:05 | NUR ---
SHIFT SUMMARY ASSUMED CARE OF PT 1899. PT A&O4 AND COOPERATIVE IN CARE. VSS AND PT PLACED ON 2L NC WHILE SLEEPING. NO ACUTE EVENTS OVERNIGHT. PT REPORTED PAIN AT THE BEGINING OF SHIFT, PRN ANALGESICS GIVEN, THEN SLEPT T/O THE NIGHT. PT HAS BEEN NPO SINCE AR. BED IN LOWEST POSITION AND CALL LIGHT WITHIN REACH.
--- NOTE | 2024-03-18 07:36 | NUR ---
NOTE: RECEIVED A CALL FROM DR. BREWSTER AT 0725 REGARDING PATIENT PLAN OF CARE. 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 PER DR. BREWSTER TO OBTATINED A SX RECORD TO L KNEE FROM [facility]. THIS RN SPOKE TO CRANE CHASER, JUANA REARDING DR. BREWSTER REQUEST. PER GAVE THE [facility] WILL OPEN AT 0800 AND SHE WILL REACH OUT TO THEM WITH THE REQUEST.
[2024-03-18 08:34] VITALS: BP 137/63
[2024-03-18] MEDS ORDERED: Vancomycin HCL 1,250 MG in NS 250 ML IV SCH (09:00)
[2024-03-18 12:01] VITALS: BP 117/61
--- NOTE | 2024-03-18 14:50 | NUR ---
SHIFT/TRANSFERRED SUMMARY: PATIENT A/OX3, [place], PLEASANT AND COOPERATIVE c CARE. PATIENT DENIES CP/PRESSURE, SOB, N/V AND DIZZINESS. PATIENT REPORTS PAIN 3/10 TO L KNEE, MEDICATED FOR PAIN PER EMAR c GOOD EFFECT. PATIENT RECEIVED IV ABX/SCHEDULED MEDS PER EMAR. DR. BREWSTER CAME IN FOR CONSULT THIS AM, DISCUSSED c PATIENT c THE PLAN OF CARE. PATIENT AGREEABLE AND SIGNED THE CONSENT TO PROCEED c THE I/D PLAN TOMORROW AM. PATIENT WILL BE NPO AT NE. PATIENT HAD BEDBATH AND LINEN CHANGED TODAY. PATIENT HAS GOOD APPETITE, INCONTINENT OF BLADDER, MALE PUREWICK IN PLACED TOLERATING WELL. PATIENT TRANSFERRED TO MEDICAL UNIT TO ROOM 363. TR GIVEN TO CASSIDY/KEO SANTIAGO'S REGARDING PATIENT CONDITION AND PLAN OF CARE. ALL PERSONAL BELONGINGS WERE SENT c THE PATIENT. PATIENT LEFT THE ROOM AT 1443 TRANSPORTED VIA BED BY JT'Suleiman CONDON TO ROOM 363.
--- NOTE | 2024-03-18 15:01 | NUR ---
TRANSFER PT TRANSFERRED TO [place] [address] FROM [facility] 09. THIS RN RECIEVED REPORT FROM DANIEL GOVEA RN. SKIN ASSESSMENT PERFORMED BY THIS RN AND CASSIDY CROWLEY, COCCYX WOUND NOTED. PT ARRIVED PLEASNT BUT IN PAIN RATING 7/10, WILL MEDICATE PER EMAR. BEDREST, USING MALE PUREWICK. ON CONTACT PRECAUTION FOR MRSA.
--- NOTE | 2024-03-18 17:36 | NUR ---
SHIFT SUMMARY NO ACUTE EVENTS FROM LAST NOTE
[2024-03-18 19:58] VITALS: BP 129/58
[2024-03-19] VITALS (22 sets, daily range): BP systolic 108–167; BP diastolic 56–81
[2024-03-19] MEDS ORDERED: Tranexamic Acid 100 ML IV SCH (06:00)
[2024-03-19] MEDS ORDERED: Ropivacaine 0.5% HCl/Pf 123.125 MG,EPINEPHrine HCL 0.25 MG,Ketorolac Tromethamine 15 MG... INFIL SCH (06:00)
--- NOTE | 2024-03-19 06:09 | NUR ---
Shift Summary Pt AOx3, NPO since 0000 in anticipation of procedure on infected L knee. He has been having some hallucinations during the night, thinking there are people in the room with him who he is talking to when no one is there. He c/o of 7/10 knee pain early in the shift, medicated once per emar. Male purewick was changed around 0500 as well as all linens. Pt did not appear to sleep t/o the night and seemed wide awake every time I rounded.
[2024-03-19 08:38] LABS: Hematocrit 30.4 % (37.0-53.0); Hemoglobin 9.9 g/dL (13.5-17.5); Mean Corpuscular HGB 31.2 pg (26.0-34.0); Mean Corpuscular HGB Conc 32.6 g/dL (31.5-36.5); Mean Corpuscular Volume 96 fL (80-100); Mean Platelet Volume 8.6 fL (9.1-12.4); Platelet Count 196 K/mm3 (150-400); RDW Coefficient Variation 13.9 % (11.7-14.2); RDW Standard Deviation 49.9 fL (35.1-46.3); Red Blood Cell Count 3.17 M/mm3 (4.30-5.90); White Blood Cell Count 6.95 K/mm3 (4.00-11.30)
[2024-03-19 09:01] LABS: Vancomycin, Trough 11.3 ug/mL (5.0-10.0)
[2024-03-19 09:02] LABS: Albumin, Blood 1.8 g/dL (3.4-5.0); Anion Gap 10 mmol/L (3-11); Blood Urea Nitrogen 15 mg/dL (8-24); Bun/Creatinine Ratio 16.8 (12.0-20.0); CO2, Blood 28 mmol/L (21-32); Calcium, Blood 8.5 mg/dL (8.5-10.1); Chloride, Blood 101 mmol/L (98-108); Creatinine, Blood 0.89 mg/dL (0.60-1.20); Glomerular Filtration Rate 83 (60-); Glucose, Blood 106 mg/dL (70-99); Phosphorus, Blood 2.6 mg/dL (2.5-4.9); Potassium, Blood 3.7 mmol/L (3.5-5.5); Sodium, Blood 135 mmol/L (136-145)
[2024-03-19] MEDS ORDERED: Dose Adjust by Pharmacy XX STA (09:05)
[2024-03-19] MEDS ORDERED: NS 250 ML IV PRN (09:50)
[2024-03-19] MEDS ORDERED: Lactated Ringer's 1,000 ML IV ONE (09:54)
--- NOTE | 2024-03-19 10:28 | NUR ---
AT 0958, THIS RN SHAGGY PATIENT ALL MORNING MEDS. DID NOT RECORD IN EMAR. JARDIANCE, TAMSULSIN, LASIX, PROBIOTIC WERE ALL GIVEN. DID NOT NOTICE DID NOT RECORD IN EMAR UNTIL PT LEFT FOR PRE OP. PT LEFT FOR PRE OP BY BED, ESCROTED BY 2 RN. A&OX4, COOPERATIVE, ABLE T0 MAKE NEEDS KNOWN. WILL DOCUMENT ASSESSMENT.
[2024-03-19] MEDS ORDERED: propofoL 100 ML IV ONE (11:12)
--- NOTE | 2024-03-19 11:15 | NUR ---
PT ARRIVES TO PACU VIA BED FROM RM 363 VIA BED FOR PREOP CARE AT 1100. PLEASANT & COOPERATIVE. AFEBRILE/VSS. SURGICAL PACK COMPLETE. SURGICAL HAT/PAS SLEEVE TO LLE/BP CUFF IN PLACED. LR AT TKO & VANCOMYCIN INFUSING ON PUMP. NO COMPLAINTS. RESTING QUIETLY.
[2024-03-19] MEDS ORDERED: FentaNYL Citrate 50 MCG/ML 2 ML Injection ONE ×2 (11:16→14:38)
[2024-03-19] MEDS ORDERED: Rocuronium Bromide 10 MG/ML 5ML Injection IV ONE (11:16)
[2024-03-19] MEDS ORDERED: FLU VACC TS2024-25(6MOS UP)/PF 45 MCG/0.5 ML SYRINGE IM SCH (11:25)
[2024-03-19] MEDS ORDERED: Acetaminophen 325 MG TABLET PO PRN (11:30)
[2024-03-19] MEDS ORDERED: Bisacodyl 10 MG Supp PR PRN (11:30)
[2024-03-19] MEDS ORDERED: Magnesium Hydroxide Conc 10 ML UDC PO PRN (11:30)
[2024-03-19] MEDS ORDERED: OxyCODONE HCL 5 MG TAB PO PRN (11:30)
[2024-03-19] MEDS ORDERED: HYDROmorphone HCl/Pf 1MG SYR IV PRN (11:30)
[2024-03-19] MEDS ORDERED: CefTRIAXone Sodium 2,000 MG in NS 100 ML IV SCH (11:35)
--- NOTE | 2024-03-19 11:53 | NUR ---
PT TO OR 3 VIA BED AT 1150 VIA BED IN STABLE CONDITION.
[2024-03-19] MEDS ORDERED: Ondansetron HCl 2 MG / ML 2ML Vial ONE (12:42)
[2024-03-19] MEDS ORDERED: Ketorolac Tromethamine 30mg Vial ONE (12:42)
[2024-03-19] MEDS ORDERED: Sugammadex Sodium 200 MG/2ML SDV (100 MG/ML) ONE (12:42)
[2024-03-19] MEDS ORDERED: Vancomycin HCl 1000 MG ADDvantage ONE (12:54)
[2024-03-19 13:50] LABS: BODY FLUID RBC 0.046 M/mm3 (0-0)
[2024-03-19] MEDS ORDERED: propofoL 20 ML IV ONE (13:55)
[2024-03-19 14:12] LABS: RBC Count, Synovial Fluid 46000 /mm3 (0-0)
[2024-03-19 14:13] LABS: WBC Count, Synovial Fluid 30140 /mm3 (0-180)
[2024-03-19] MEDS ORDERED: HYDROmorphone HCl/Pf 1MG SYR ONE (14:46)
[2024-03-19] MEDS ORDERED: NS KCl 20mEq 1,000 ML IV SCH (15:00)
[2024-03-19 15:46] LABS: Lymphs, Synovial Fluid 2 % (0-15); Monocytes/Macrophages, Synovia 2 % (0-65); Neutrophils, Synovial Fluid 96 % (0-24)
[2024-03-19 15:47] LABS: Appearance, Synovial Fluid Cloudy (Clear); Color, Synovial Fluid Red (None-P Yel)
--- NOTE | 2024-03-19 17:11 | NUR ---
RECEIVED PT FROM PACU A/O X3 WITH SOME BOUTS OF CONFUSION MINIMAL PAIN AND DRESSING TO LEFT KNEE. FAMILY AT BEDSIDE WITH PT.
[2024-03-19] MEDS ORDERED: Docusate Sodium 100 MG Cap PO SCH (21:00)
[2024-03-20 00:14] VITALS: BP 135/72
[2024-03-20 03:55] VITALS: BP 131/64
[2024-03-20 04:40] LABS: BASOPHILS ABSOLUTE AUTO 0.03 K/mm3 (0.00-0.23); BASOPHILS PERCENT AUTO 1 % (0-2); EOSINOPHILS ABSOLUTE AUTO 0.18 K/mm3 (0.00-0.68); EOSINOPHILS PERCENT AUTO 3 % (0-6); Hematocrit 32.5 % (37.0-53.0); Hemoglobin 10.3 g/dL (13.5-17.5); IMMATURE GRAN ABSOLUTE AUTO 0.02 K/mm3 (0.00-0.10); IMMATURE GRAN PERCENT AUTO 0 % (0-1); LYMPHOCYTES ABSOLUTE AUTO 1.15 K/mm3 (0.84-5.20); LYMPHOCYTES PERCENT AUTO 21 % (21-46); MONOCYTES ABSOLUTE AUTO 0.39 K/mm3 (0.16-1.47); MONOCYTES PERCENT AUTO 7 % (4-13); Mean Corpuscular HGB 30.7 pg (26.0-34.0); Mean Corpuscular HGB Conc 31.7 g/dL (31.5-36.5); Mean Corpuscular Volume 97 fL (80-100); Mean Platelet Volume 8.6 fL (9.1-12.4); NEUTROPHILS ABSOLUTE AUTO 3.67 K/mm3 (1.96-9.15); NEUTROPHILS PERCENT AUTO 67 % (41-73); Platelet Count 197 K/mm3 (150-400); RDW Coefficient Variation 13.9 % (11.7-14.2); Red Blood Cell Count 3.35 M/mm3 (4.30-5.90); White Blood Cell Count 5.44 K/mm3 (4.00-11.30)
--- NOTE | 2024-03-20 04:47 | NUR ---
SHIFT SUMMARY NOC. PT POD 1 FOR I&D OF LEFT KNEE. PT TOLERATING PO INTAKE, AND INCONTINENT OF URINE. DRESSING C/D/I. PT A/O X3, FORGETFUL AT TIMES BUT EASILY REORIENTED. BED ALARM SET FOR SAFETY. BED IN LOWEST POSITION, CALL LIGHT IN REACH.
[2024-03-20 05:06] LABS: Albumin, Blood 1.7 g/dL (3.4-5.0); Anion Gap 8 mmol/L (3-11); Blood Urea Nitrogen 19 mg/dL (8-24); Bun/Creatinine Ratio 17.3 (12.0-20.0); CO2, Blood 32 mmol/L (21-32); Calcium, Blood 8.4 mg/dL (8.5-10.1); Chloride, Blood 103 mmol/L (98-108); Glomerular Filtration Rate 65 (60-); Glucose, Blood 106 mg/dL (70-99); Phosphorus, Blood 3.6 mg/dL (2.5-4.9); Potassium, Blood 3.8 mmol/L (3.5-5.5); Sodium, Blood 139 mmol/L (136-145)
[2024-03-20 07:17] VITALS: BP 137/62
[2024-03-20] MEDS ORDERED: Aspirin 81 MG Chew PO SCH (09:00)
[2024-03-20] MEDS ORDERED: CefTRIAXone Sodium 2,000 MG in NS 100 ML IV SCH (12:00)
[2024-03-20 14:42] VITALS: BP 124/62
--- NOTE | 2024-03-20 18:52 | NUR ---
End of shift note. Pt has been pleasant and cooperative all shift. Pt was unable to work with PT today but has been repositioned as tolerated. Pt has complaints of pain which was treated per [facility] orders. Dressing to left knee is CDI, was changed by MD this morning. Wound care orders placed in the chart. Pt is able to make needs known, call light is within reach.
[2024-03-20 19:44] VITALS: BP 111/58
--- NOTE | 2024-03-21 04:18 | NUR ---
SHIFT SUMMARY NOC. PT POD 2 FOR I&D OF LEFT KNEE. PT MEDICATED FOR PAIN WITH SOME REPORTED RELIEF OF SX. PT TOLERATING PO INTAKE AND INCONTINENT OF URINE. DRESSING C/D/I. PT IS A/O X3 AND FORGETFUL AT TIMES, PT IS DIRECTABLE AND CALLS APPROPRIATELY. BED IN LOWEST POSITION, CALL LIGHT IN REACH.
--- NOTE | 2024-03-21 06:35 | NUR ---
LAB COMMUNICATION MICRO CALLED THIS RN TO REPORT THAT [employer] IS GROWING IN THE PATIENTS FLUID SAMPLE SENT FROM THE LEFT KNEE. PLAN TO REPORT TO ONCOMING WEALTH MANAGEMENT ADVISOR. REPORTED TO PRIMARY RN.
[2024-03-21 07:30] VITALS: BP 138/71
[2024-03-21 08:27] LABS: BASOPHILS ABSOLUTE AUTO 0.04 K/mm3 (0.00-0.23); BASOPHILS PERCENT AUTO 1 % (0-2); EOSINOPHILS ABSOLUTE AUTO 0.29 K/mm3 (0.00-0.68); EOSINOPHILS PERCENT AUTO 5 % (0-6); Hematocrit 29.9 % (37.0-53.0); Hemoglobin 9.4 g/dL (13.5-17.5); IMMATURE GRAN ABSOLUTE AUTO 0.05 K/mm3 (0.00-0.10); IMMATURE GRAN PERCENT AUTO 1 % (0-1); LYMPHOCYTES ABSOLUTE AUTO 1.38 K/mm3 (0.84-5.20); LYMPHOCYTES PERCENT AUTO 22 % (21-46); MONOCYTES ABSOLUTE AUTO 0.37 K/mm3 (0.16-1.47); MONOCYTES PERCENT AUTO 6 % (4-13); Mean Corpuscular HGB 30.6 pg (26.0-34.0); Mean Corpuscular HGB Conc 31.4 g/dL (31.5-36.5); Mean Corpuscular Volume 97 fL (80-100); Mean Platelet Volume 8.6 fL (9.1-12.4); NEUTROPHILS ABSOLUTE AUTO 4.26 K/mm3 (1.96-9.15); NEUTROPHILS PERCENT AUTO 67 % (41-73); Platelet Count 231 K/mm3 (150-400); RDW Standard Deviation 49.5 fL (35.1-46.3); Red Blood Cell Count 3.07 M/mm3 (4.30-5.90); White Blood Cell Count 6.39 K/mm3 (4.00-11.30)
[2024-03-21 08:45] LABS: Vancomycin, Trough 16.6 ug/mL (5.0-10.0)
[2024-03-21] MEDS ORDERED: Doxycycline Hyclate 100 MG TAB PO SCH (15:00)
[2024-03-21 15:46] VITALS: BP 137/63
--- NOTE | 2024-03-21 18:48 | NUR ---
SHIFT SUMMARY PT REMAINS AWAKE AND ALERT THIS SHIFT. BP STABLE. O2 SATS REMAINED ABOVE 90% ON RA WHILE AWAKE. PT COMPLAINED OF PAIN MOST OF SHIFT AND MEDICATED PER EMAR. PT REPOSITIONED Q2H. DRESSING TO LEFT KNEE CHANGED PER ORDERS TODAY. SWELLING NOTED TO UPPER LEFT LEG AND INTO GROIN. DR. BREWSTER AWARE. PLAN TO KEEP PT NPO AFTER MIDNIGHT TONIGHT FOR POSSIBLE I&D TOMORROW. PT INCONTINENT OF URINE. PT ATTMEPTED TO HAVE BM ON BEDPAN THIS SHIFT, BUT UNSUCCESSFUL. PT UP TO CHAIR THIS AFTERNOON WITH 1 ASSIST PIVOT TRANSFER AND WALKER. PT'S DAUGHTER AT BEDISDE MOST OF SHIFT. WILL REPORT OFF TO ONCOMING RN
[2024-03-21 18:53] VITALS: BP 133/63
[2024-03-22] VITALS (14 sets, daily range): BP systolic 126–179; BP diastolic 58–103
--- NOTE | 2024-03-22 05:00 | NUR ---
SHIFT SUMMARY NO ACUTE CHANGES T/O SHIFT. PAIN MANAGED PER EMAR, ICE THERAPY AND REPOSITIONING. PT NPO AT 0000. SURGICAL INCISION TO LEFT KNEE CDI, NO EXUDATE NOTED. ON 2L NC, SPO2 ABOVE 93%. IV PATENT SL. PT RESTING IN BED WITH CALL LIGHT IN REACH AND ABLE TO MAKE NEEDS KNOW. PLAN TO SURGICAL INTERVENTION TODAY. WILL CONTINUE TO CARE FOR PATIENT AND GIVE REPORT TO ONCOMING RN.
[2024-03-22] MEDS ORDERED: HydrALAZINE HCl 20 MG / ML 1ML Vial IV PRN (08:40)
--- NOTE | 2024-03-22 13:50 | NUR ---
TO DAY SURGERY VIA HOSPITAL BED
[2024-03-22] MEDS ORDERED: Lactated Ringer's 1,000 ML IV SCH (14:10)
[2024-03-22] MEDS ORDERED: Vancomycin HCl 1000 MG ADDvantage ONE (14:45)
[2024-03-22] MEDS ORDERED: FentaNYL Citrate 50 MCG/ML 2 ML Injection ONE ×2 (14:58→15:56)
[2024-03-22] MEDS ORDERED: Midazolam HCl 1MG / ML 2ML Vial ONE (14:58)
[2024-03-22] MEDS ORDERED: propofoL 20 ML IV ONE ×2 (14:59→15:27)
[2024-03-22] MEDS ORDERED: Ondansetron HCl 2 MG / ML 2ML Vial ONE (15:01)
[2024-03-22] MEDS ORDERED: Rocuronium Bromide 10 MG/ML 5ML Injection IV ONE ×2 (15:01→15:28)
[2024-03-22] MEDS ORDERED: Dexamethasone Sod Phos 10 MG/ML 1ML VIAL ONE (15:01)
[2024-03-22] MEDS ORDERED: ePHEDrine Sulfate 50 MG/ML 1ML Injection ONE (15:01)
[2024-03-22] MEDS ORDERED: CefTRIAXone Sodium 2,000 MG in NS 100 ML IV SCH (15:51)
[2024-03-22] MEDS ORDERED: Labetalol HCL 5 MG/ML 4ML Injection (Single Dose) ONE (15:56)
--- NOTE | 2024-03-22 16:11 | NUR ---
03/22/24 1611 Alise Carpenter PATIENT ON SCHEDULED ANTIBIOTICS, SEE EMAR RECORD. NO INTRAOPERATIVE ANTIBIOTICS ORDERED.
[2024-03-22] MEDS ORDERED: Sugammadex Sodium 200 MG/2ML SDV (100 MG/ML) ONE (16:44)
[2024-03-22] MEDS ORDERED: Bupivacaine HCl 0.25% 30 ML Injection ONE ×2 (16:49→17:16)
[2024-03-22] MEDS ORDERED: HYDROmorphone HCl/Pf 1MG SYR ONE (16:57)
--- NOTE | 2024-03-22 18:25 | NUR ---
POST OP ARRIVAL VIA HOSPITAL BED, ALERT & ORIENTED. LLE w/ NEHEMIAS WRAP & TOMMY UNDER. PPP. WIGGLES TOES. BRISK REFILL. DENIES PAIN OR N/V. SNACKS & DRINKS GIVEN.
[2024-03-23 00:36] VITALS: BP 166/73
--- NOTE | 2024-03-23 04:05 | NUR ---
SHIFT SUMMARY POD4 POST-JOSE I&D, POD1 POST-JOSE I&D #2 WITH BEADS TO LEFT KNEE. NO ACUTE CHANGES OVERNIGHT. LEFT KNEE WITH TOMMY DRESSING & NEHEMIAS WRAP, REMAINED PATENT & C/D/I OVERNIGHT. PT DECLINES PRN ANALGESCIS OVERNIGHT, DENIES PAIN. URINARY & STOOL INCONTINENCE, DISPOSABLE BRIEFS IN PLACE. TOLERATING PO INTAKE. PT ABLE TO REST DURING SHIFT. A&OX4, PLEASANT & COOPERATIVE. ABLE TO VOICE NEEDS, USES CALL LIGHT APPROPRIATELY. PT VOICED UNDERSTANDING OF PLAN OF CARE, DENIES QUESTIONS/CONCERNS AT THIS TIME.
[2024-03-23 04:27] VITALS: BP 141/69
[2024-03-23 05:05] LABS: BASOPHILS ABSOLUTE AUTO 0.02 K/mm3 (0.00-0.23); BASOPHILS PERCENT AUTO 0 % (0-2); EOSINOPHILS ABSOLUTE AUTO 0.01 K/mm3 (0.00-0.68); EOSINOPHILS PERCENT AUTO 0 % (0-6); Hematocrit 30.2 % (37.0-53.0); Hemoglobin 9.3 g/dL (13.5-17.5); IMMATURE GRAN ABSOLUTE AUTO 0.05 K/mm3 (0.00-0.10); IMMATURE GRAN PERCENT AUTO 1 % (0-1); LYMPHOCYTES ABSOLUTE AUTO 1.55 K/mm3 (0.84-5.20); LYMPHOCYTES PERCENT AUTO 18 % (21-46); MONOCYTES ABSOLUTE AUTO 0.55 K/mm3 (0.16-1.47); MONOCYTES PERCENT AUTO 6 % (4-13); Mean Corpuscular HGB 30.7 pg (26.0-34.0); Mean Corpuscular HGB Conc 30.8 g/dL (31.5-36.5); Mean Corpuscular Volume 100 fL (80-100); Mean Platelet Volume 8.8 fL (9.1-12.4); NEUTROPHILS PERCENT AUTO 75 % (41-73); Platelet Count 292 K/mm3 (150-400); RDW Coefficient Variation 14.1 % (11.7-14.2); RDW Standard Deviation 51.6 fL (35.1-46.3); Red Blood Cell Count 3.03 M/mm3 (4.30-5.90); White Blood Cell Count 8.68 K/mm3 (4.00-11.30)
[2024-03-23 05:52] LABS: Albumin, Blood 1.7 g/dL (3.4-5.0); Albumin/Globulin Ratio 0.4 (0.8-1.8); Bilirubin, Total 0.3 mg/dL (0.1-1.0); Calcium, Blood 8.6 mg/dL (8.5-10.1); Creatinine, Blood 0.77 mg/dL (0.60-1.20); Globulin, Blood 4.3 g/dL (2.2-4.0); Magnesium, Blood 2.1 mg/dL (1.6-2.4); Phosphorus, Blood 2.9 mg/dL (2.5-4.9); Potassium, Blood 4.7 mmol/L (3.5-5.5)
[2024-03-23 07:27] VITALS: BP 126/61
[2024-03-23] MEDS ORDERED: OxyCODONE 7.5 mg/Acetam 325 mg TABLET PO PRN (10:05)
[2024-03-23 15:08] VITALS: BP 125/57
--- NOTE | 2024-03-23 17:58 | NUR ---
SHIFT SUMMARY PT ALERT AND ORIENTED THROUGHOUT SHIFT. VSS STABLE, LUNGS SOUND CLEAR, BUT DIM. PT DENIED CHEST PAIN/PRESSURE. PT DID REPORT CONSISTENT 7-8 PAIN THROUGHOUT DAY. TREATED PER JUL. PT DID APPEAR MORE RELAXED AFTER NEWLY ORDERED PERCOCET THIS AFTERNOON. PT WAS ABLE TO AMBULATE TO BEDSIDE COMMODE WITH 1-2 PERSON ASSIST FOR BM TODAY. PT REPORTED DIFFICULTY WITH BM, GIVEN MIRALAX. WILL CONTINUE TO MONITOR AND GIVE REPORT TO ONCOMING RN.
[2024-03-23 19:17] VITALS: BP 117/59
[2024-03-24 03:56] VITALS: BP 133/69
--- NOTE | 2024-03-24 04:46 | NUR ---
SHIFT SUMMARY NO ACUTE CHANGES OVERNIGHT. TOMMY & NEHEMIAS WRAP TO L KNEE REMAINED PATENT AND C/D/I OVERNIGHT. PAIN MANAGED UTILIZING NPIS AND PER EMAR. URINARY INCONTINENCE; BRIEFS CHANGED SEVERAL TIMES T/O NIGHT WITH ROSAURA CARE. CLEANSING & BARIER CREAMS USED TO ROSAURA AREA. A&OX4. ABLE TO VOICE NEEDS. USED CALL LIGHT APPROPRIATELY. PT VOICED UNDERSTANDING OF PLAN OF CARE, DENIES QUESTIONS/CONCERNS AT THIS TIME.
[2024-03-24 07:16] VITALS: BP 135/65
[2024-03-24] MEDS ORDERED: Miconazole Nitrate 2% 85 GM PWD TOP PRN (08:40)
[2024-03-24 09:04] LABS: BASOPHILS ABSOLUTE AUTO 0.05 K/mm3 (0.00-0.23); BASOPHILS PERCENT AUTO 1 % (0-2); EOSINOPHILS ABSOLUTE AUTO 0.41 K/mm3 (0.00-0.68); EOSINOPHILS PERCENT AUTO 6 % (0-6); Hematocrit 27.2 % (37.0-53.0); Hemoglobin 8.3 g/dL (13.5-17.5); IMMATURE GRAN ABSOLUTE AUTO 0.12 K/mm3 (0.00-0.10); IMMATURE GRAN PERCENT AUTO 2 % (0-1); LYMPHOCYTES ABSOLUTE AUTO 2.39 K/mm3 (0.84-5.20); LYMPHOCYTES PERCENT AUTO 32 % (21-46); MONOCYTES ABSOLUTE AUTO 0.58 K/mm3 (0.16-1.47); MONOCYTES PERCENT AUTO 8 % (4-13); Mean Corpuscular HGB 30.6 pg (26.0-34.0); Mean Corpuscular HGB Conc 30.5 g/dL (31.5-36.5); Mean Corpuscular Volume 100 fL (80-100); Mean Platelet Volume 8.4 fL (9.1-12.4); NEUTROPHILS ABSOLUTE AUTO 3.84 K/mm3 (1.96-9.15); NEUTROPHILS PERCENT AUTO 52 % (41-73); Platelet Count 296 K/mm3 (150-400); RDW Coefficient Variation 14.5 % (11.7-14.2); Red Blood Cell Count 2.71 M/mm3 (4.30-5.90); White Blood Cell Count 7.39 K/mm3 (4.00-11.30)
[2024-03-24 09:21] LABS: Alanine Aminotransfer (ALT/SGP 24 U/L (12-78); Albumin, Blood 1.8 g/dL (3.4-5.0); Albumin/Globulin Ratio 0.4 (0.8-1.8); Alk Phos 102 U/L (50-136); Anion Gap 6 mmol/L (3-11); Aspartate Aminotrans (AST/SGOT 21 U/L (12-37); Bilirubin, Total 0.3 mg/dL (0.1-1.0); Blood Urea Nitrogen 19 mg/dL (8-24); Bun/Creatinine Ratio 22.3 (12.0-20.0); CO2, Blood 34 mmol/L (21-32); Calcium, Blood 8.5 mg/dL (8.5-10.1); Chloride, Blood 105 mmol/L (98-108); Creatinine, Blood 0.85 mg/dL (0.60-1.20); Globulin, Blood 4.1 g/dL (2.2-4.0); Glomerular Filtration Rate 85 (60-); Glucose, Blood 115 mg/dL (70-99); Magnesium, Blood 1.9 mg/dL (1.6-2.4); Phosphorus, Blood 3.2 mg/dL (2.5-4.9); Potassium, Blood 4.1 mmol/L (3.5-5.5); Sodium, Blood 141 mmol/L (136-145); Total Protein, Blood 5.9 g/dL (6.4-8.2); Vancomycin, Trough 13.8 ug/mL (5.0-10.0)
--- NOTE | 2024-03-24 12:15 | NUR ---
REPORT FROM TANO CROWLEY. ASSUMING CARE.
[2024-03-24 16:00] VITALS: BP 126/55
--- NOTE | 2024-03-24 18:03 | NUR ---
SHIFT SUMMARY PT WAS UP IN CHAIR FOR PART OF THE DAY. STILL CONT TO HAVE PAIN IN R KNEE. PT WAS ABLE TO STAND AND TRANSFER TO BED. INCONTINENT OF URINE. FREQUENT ROSAURA PAD CHANGES AND POWDER APPLIED. PT GIVEN PRN PAIN MEDICATION NEEDED. PT CURRENTLY GETTING PICC LINE PLACED. FAMILY UPDATED. PLAN TO D/C TO SNF TOMORROW.
[2024-03-24 19:21] VITALS: BP 140/59
[2024-03-25 03:59] VITALS: BP 113/49
--- NOTE | 2024-03-25 04:26 | NUR ---
SHIFT SUMMARY NO ACUTE CHANGES OVERNIGHT. L KNEE WITH TOMMY DRESSING & NEHEMIAS WRAP; REMAINED PATENT & C/D/I OVERNIGHT. DISTAL CMS INTACT. PAIN MANAGED UTILIZING NPIS AND PER EMAR. PT VOICED UNDERSTANDING OF PLAN OF CARE, DENIES QUESTIONS/CONCERNS AT THIS TIME. PT ABLE TO REST DURING SHIFT.
[2024-03-25 07:13] VITALS: BP 131/101
[2024-03-25 07:38] LABS: BASOPHILS ABSOLUTE AUTO 0.06 K/mm3 (0.00-0.23); BASOPHILS PERCENT AUTO 1 % (0-2); EOSINOPHILS ABSOLUTE AUTO 0.41 K/mm3 (0.00-0.68); EOSINOPHILS PERCENT AUTO 6 % (0-6); Hematocrit 25.6 % (37.0-53.0); Hemoglobin 8.1 g/dL (13.5-17.5); IMMATURE GRAN ABSOLUTE AUTO 0.19 K/mm3 (0.00-0.10); IMMATURE GRAN PERCENT AUTO 3 % (0-1); LYMPHOCYTES ABSOLUTE AUTO 1.97 K/mm3 (0.84-5.20); LYMPHOCYTES PERCENT AUTO 29 % (21-46); MONOCYTES PERCENT AUTO 8 % (4-13); Mean Corpuscular HGB 31.3 pg (26.0-34.0); Mean Corpuscular HGB Conc 31.6 g/dL (31.5-36.5); Mean Corpuscular Volume 99 fL (80-100); Mean Platelet Volume 8.4 fL (9.1-12.4); NEUTROPHILS ABSOLUTE AUTO 3.57 K/mm3 (1.96-9.15); NEUTROPHILS PERCENT AUTO 53 % (41-73); Platelet Count 304 K/mm3 (150-400); RDW Coefficient Variation 14.6 % (11.7-14.2); RDW Standard Deviation 52.5 fL (35.1-46.3); Red Blood Cell Count 2.59 M/mm3 (4.30-5.90)
[2024-03-25 08:03] LABS: Magnesium, Blood 1.9 mg/dL (1.6-2.4)
[2024-03-25 08:19] LABS: Albumin, Blood 1.8 g/dL (3.4-5.0); Albumin/Globulin Ratio 0.4 (0.8-1.8); Bilirubin, Total 0.2 mg/dL (0.1-1.0); Bun/Creatinine Ratio 21.3 (12.0-20.0); Calcium, Blood 8.8 mg/dL (8.5-10.1); Creatinine, Blood 0.8 mg/dL (0.60-1.20); Total Protein, Blood 5.8 g/dL (6.4-8.2)
--- NOTE | 2024-03-25 12:25 | NUR ---
CALL TO RADIOLOGY TO CHECK ON STATUS OF ANKLE XRAY IT HAS NOT BEEN DONE. NUCLEAR AUXILIARY OPERATOR CURRENTLY WORKING ON OTHER STUDIES IN THE ED AND WILL GET IT DONE SOON POSSIBLE.
[2024-03-25 12:34] LABS: Influenza A, PCR NEGATIVE (NEGATIVE); Influenza B, PCR NEGATIVE (NEGATIVE); Resp Syncytial Virus, PCR NEGATIVE (NEGATIVE); SARS-Cov-2 (COVID-19) PCR, MMC NEGATIVE (NEGATIVE)
[2024-03-25 15:15] VITALS: BP 133/58
--- NOTE | 2024-03-25 15:33 | NUR ---
DISCHARGE SUMMARY PT TRANSFERRED/DISCHARGED TO [facility]. PT HAS BANDAGE TO L KNEE WITH TOMMY DRAIN IN PLACE. C/D/I. MEDICATED FOR PAIN SHORTLY BEFORE DISCHARGE. PT WAS ABLE TO STAND AND TRANSFER WITH 1 PERSON ASSIST TO WHEELCHAIR FROM BED. PT'S DAUGHTER UPDATED AT BEDSIDE. PICC LINE IN PLACE AND FLUSHES WELL. DRESSING C/D/I. PT CLEANED UP AND DRY ATTENDS IN PLACE PRIOR TO DISCHARGE. PT HAS F/U APPOINTMENTS MADE WITH [facility].
--- NOTE | 2024-03-25 15:46 | NUR ---
ATTEMPT TO CALL [facility] TO GIVE REPORT. BRIEF MESSAGE LEFT FOR CALL BACK.
== END 2024-03-25 15:28 | DRG 466 ==
LOC: ER 20:49 → ERHOLD 03-16 01:12 → SURS 03-16 01:12 → ERHOLD 03-16 01:12 → PCU 03-16 01:12 → MEDS 03-18 14:42 → SURS 03-19 10:28
PROVIDERS: Emergency Medicine; Hospitalist; Internal Medicine; Orthopaedic Surgery; Pharmacist; ADMIT Student in an Organized Health Care Education/Training Program
PROC: 3E03329 Introduction of Other Anti-infective into Peripheral Vein, Percutaneous Approach (ICD-10-PCS; 2024-03-15)
PROC: 0S9D3ZZ Drainage of Left Knee Joint, Percutaneous Approach (ICD-10-PCS; principal; 2024-03-17)
PROC: 0SPD09Z Removal of Liner from Left Knee Joint, Open Approach (ICD-10-PCS; 2024-03-19)
PROC: 0SUW09Z Supplement Left Knee Joint, Tibial Surface with Liner, Open Approach (ICD-10-PCS; 2024-03-19)
PROC: 0SRW0JZ Replacement of Left Knee Joint, Tibial Surface with Synthetic Substitute, Open Approach (ICD-10-PCS; 2024-03-22)
PROC: 0SPW0JZ Removal of Synthetic Substitute from Left Knee Joint, Tibial Surface, Open Approach (ICD-10-PCS; 2024-03-22)
DX: T84.54XA Infection and inflammatory reaction due to internal left knee prosthesis, initial encounter (principal); A41.02 Sepsis due to Methicillin resistant Staphylococcus aureus; R65.20 Severe sepsis without septic shock; G92.8 Other toxic encephalopathy; J96.01 Acute respiratory failure with hypoxia; J18.9 Pneumonia, unspecified organism; I50.32 Chronic diastolic (congestive) heart failure; N39.0 Urinary tract infection, site not specified; M00.262 Other streptococcal arthritis, left knee; L97.819 Non-pressure chronic ulcer of other part of right lower leg with unspecified severity; L97.829 Non-pressure chronic ulcer of other part of left lower leg with unspecified severity; Z66 Do not resuscitate; Z86.718 Personal history of other venous thrombosis and embolism; Z79.01 Long term (current) use of anticoagulants; N40.0 Benign prostatic hyperplasia without lower urinary tract symptoms; I11.0 Hypertensive heart disease with heart failure; Z96.642 Presence of left artificial hip joint; Z79.899 Other long term (current) drug therapy; Z90.49 Acquired absence of other specified parts of digestive tract; Z98.890 Other specified postprocedural states; I83.018 Varicose veins of right lower extremity with ulcer other part of lower leg; I83.028 Varicose veins of left lower extremity with ulcer other part of lower leg
CPT/HCPCS: 0241U; 20611; 36415; 51701; 71046; 73560-LT; 73600; 74176; 80053; 80069; 80202; 81001; 82570; 82728; 82947; 83540; 83550; 83605; 83690; 83735; 83880; 84100; 84145; 84484; 84540; 85025; 85027; 85610; 85651; 86140; 86141; 87040; 87070; 87071; 87075; 87077; 87086; 87147; 87186; 87205; 88304; 89051; 93308; 93321; 93970; 94760; 94762; 96361; 96365-59; 97110; 97161; 97165; 97530; 97535; 99285-25; A9270; C1713; C1751; C1776; J0171; J0456; J0696; J0735; J1100; J1171; J1885; J2250; J2405; J2704; J2795; J3010; J3370; J3480; J7030; J7040; J7050; J7120

== ENCOUNTER 2024-04-30 06:54 | Day surgery (SDC) | payer OTHER ==
[~2024-04-30 06:54] MED LIST changes: +DAPTOmycin 600 MG in NS 50 ML IV SCH
[2024-04-30 12:20] VITALS: BP 119/60
== END 2024-04-30 12:46 | disposition home or self-care (01) ==
LOC: ATC 06:54
DX: M00.862 Arthritis due to other bacteria, left knee (principal); T84.59XA Infection and inflammatory reaction due to other internal joint prosthesis, initial encounter; I50.30 Unspecified diastolic (congestive) heart failure; Z79.01 Long term (current) use of anticoagulants; Z79.899 Other long term (current) drug therapy; Z96.659 Presence of unspecified artificial knee joint; Z87.891 Personal history of nicotine dependence
CPT/HCPCS: 96365; J0878

== ENCOUNTER 2024-05-01 02:34 | Day surgery (SDC) | payer OTHER ==
[~2024-05-01 02:34] MED LIST changes: -DAPTOmycin 600 MG in NS 50 ML IV SCH
[2024-05-01] MEDS ORDERED: DAPTOmycin 600 MG in NS 50 ML IV SCH (06:00)
[2024-05-01 11:42] VITALS: BP 119/49
== END 2024-05-01 12:02 | disposition home or self-care (01) ==
LOC: ATC 02:34
DX: T84.59XA Infection and inflammatory reaction due to other internal joint prosthesis, initial encounter (principal); M00.862 Arthritis due to other bacteria, left knee; I50.30 Unspecified diastolic (congestive) heart failure; Z79.899 Other long term (current) drug therapy; Z87.891 Personal history of nicotine dependence; Z96.659 Presence of unspecified artificial knee joint
CPT/HCPCS: 96365; J0878

== ENCOUNTER 2024-05-02 04:15 | Day surgery (SDC) | payer OTHER ==
[2024-05-02] MEDS ORDERED: DAPTOmycin 600 MG in NS 50 ML IV SCH (06:00)
[2024-05-02 11:57] VITALS: BP 128/56
--- NOTE | 2024-05-02 12:57 | NUR ---
PTS IV SWOLLEN AND LEAKING. IV DISCONTINUED AND PT INSTRUCTED ON CARE OF IV AT HOME. SITE SWOLLEN AND LEAKING IV FLUIDS. SKIN PINK AND WARM. SITE WITH GAUZE AND COBAN. PT C/O OF ITCHING FROM HAND.
== END 2024-05-02 12:20 | disposition home or self-care (01) ==
LOC: ATC 04:15
DX: T84.54XA Infection and inflammatory reaction due to internal left knee prosthesis, initial encounter (principal); I50.30 Unspecified diastolic (congestive) heart failure; Z87.891 Personal history of nicotine dependence; Z96.659 Presence of unspecified artificial knee joint
CPT/HCPCS: 96365; J0878

== ENCOUNTER 2024-05-03 04:55 | Day surgery (SDC) | payer OTHER ==
[2024-05-03] MEDS ORDERED: DAPTOmycin 600 MG in NS 50 ML IV SCH (06:00)
[2024-05-03 11:41] VITALS: BP 116/5
== END 2024-05-03 12:02 | disposition home or self-care (01) ==
LOC: ATC 04:55
DX: T84.54XA Infection and inflammatory reaction due to internal left knee prosthesis, initial encounter (principal); I50.9 Heart failure, unspecified; Z96.659 Presence of unspecified artificial knee joint; Z79.899 Other long term (current) drug therapy; Z87.891 Personal history of nicotine dependence
CPT/HCPCS: 96365; J0878

== ENCOUNTER → 2024-05-06 | Outpatient (CLI) | payer OTHER ==
[2024-05-06 18:24] LABS: BASOPHILS ABSOLUTE AUTO 0.05 K/mm3 (0.00-0.23); BASOPHILS PERCENT AUTO 1 % (0-2); EOSINOPHILS ABSOLUTE AUTO 0.25 K/mm3 (0.00-0.68); EOSINOPHILS PERCENT AUTO 4 % (0-6); Hematocrit 32.1 % (37.0-53.0); Hemoglobin 10.2 g/dL (13.5-17.5); IMMATURE GRAN ABSOLUTE AUTO 0.01 K/mm3 (0.00-0.10); IMMATURE GRAN PERCENT AUTO 0 % (0-1); LYMPHOCYTES PERCENT AUTO 35 % (21-46); MONOCYTES ABSOLUTE AUTO 0.56 K/mm3 (0.16-1.47); MONOCYTES PERCENT AUTO 9 % (4-13); Mean Corpuscular HGB 30.2 pg (26.0-34.0); Mean Corpuscular HGB Conc 31.8 g/dL (31.5-36.5); Mean Corpuscular Volume 95 fL (80-100); Mean Platelet Volume 9.7 fL (9.1-12.4); NEUTROPHILS ABSOLUTE AUTO 3.28 K/mm3 (1.96-9.15); NEUTROPHILS PERCENT AUTO 52 % (41-73); Platelet Count 188 K/mm3 (150-400); RDW Coefficient Variation 14.1 % (11.7-14.2); RDW Standard Deviation 48.8 fL (35.1-46.3); Red Blood Cell Count 3.38 M/mm3 (4.30-5.90); White Blood Cell Count 6.35 K/mm3 (4.00-11.30)
[2024-05-06 19:06] LABS: Bun/Creatinine Ratio 19.6 (12.0-20.0); Calcium, Blood 8.6 mg/dL (8.5-10.1); Creatinine, Blood 1.48 mg/dL (0.60-1.20)
== END | disposition home or self-care (01) ==
LOC: LAB 18:08 → LAB SHORT 18:08
PROVIDERS: Nurse Practitioner Family
DX: A49.02 Methicillin resistant Staphylococcus aureus infection, unspecified site (principal)
CPT/HCPCS: 80048; 85025

== ENCOUNTER 2024-06-27 19:17 | Inpatient (IN) | payer OTHER ==
[~2024-06-27] VITALS: Ht 167.6 cm; Wt 102.0 kg
[2024-06-27 19:48] LABS: BASOPHILS ABSOLUTE AUTO 0.04 K/mm3 (0.00-0.23); BASOPHILS PERCENT AUTO 1 % (0-2); EOSINOPHILS ABSOLUTE AUTO 0.22 K/mm3 (0.00-0.68); EOSINOPHILS PERCENT AUTO 3 % (0-6); Hematocrit 34.6 % (37.0-53.0); Hemoglobin 11.4 g/dL (13.5-17.5); IMMATURE GRAN ABSOLUTE AUTO 0.03 K/mm3 (0.00-0.10); IMMATURE GRAN PERCENT AUTO 0 % (0-1); LYMPHOCYTES ABSOLUTE AUTO 2.86 K/mm3 (0.84-5.20); LYMPHOCYTES PERCENT AUTO 34 % (21-46); MONOCYTES ABSOLUTE AUTO 0.79 K/mm3 (0.16-1.47); MONOCYTES PERCENT AUTO 9 % (4-13); Mean Corpuscular HGB 28.9 pg (26.0-34.0); Mean Corpuscular HGB Conc 32.9 g/dL (31.5-36.5); Mean Corpuscular Volume 88 fL (80-100); Mean Platelet Volume 9.2 fL (9.1-12.4); NEUTROPHILS ABSOLUTE AUTO 4.53 K/mm3 (1.96-9.15); NEUTROPHILS PERCENT AUTO 53 % (41-73); Platelet Count 212 K/mm3 (150-400); RDW Coefficient Variation 14.3 % (11.7-14.2); RDW Standard Deviation 46.4 fL (35.1-46.3); Red Blood Cell Count 3.95 M/mm3 (4.30-5.90); White Blood Cell Count 8.47 K/mm3 (4.00-11.30)
[2024-06-27 20:11] LABS: Albumin, Blood 3.2 g/dL (3.4-5.0); Albumin/Globulin Ratio 0.7 (0.8-1.8); Bilirubin, Total 0.4 mg/dL (0.1-1.0); Bun/Creatinine Ratio 28.6 (12.0-20.0); Calcium, Blood 8.2 mg/dL (8.5-10.1); Creatinine, Blood 4.44 mg/dL (0.60-1.20); Globulin, Blood 4.3 g/dL (2.2-4.0); Potassium, Blood 3.1 mmol/L (3.5-5.5); Total Protein, Blood 7.5 g/dL (6.4-8.2)
[2024-06-27 20:27] LABS: Influenza A, PCR NEGATIVE (NEGATIVE); Influenza B, PCR NEGATIVE (NEGATIVE); Resp Syncytial Virus, PCR NEGATIVE (NEGATIVE); SARS-Cov-2 (COVID-19) PCR, MMC NEGATIVE (NEGATIVE)
[2024-06-27 22:33] LABS: Source, Urine Clean Catch
[2024-06-27 22:42] LABS: Bilirubin, Urine Neg (Neg); Blood, Urine 2+ (Neg); Glucose Qualitative, Urine 1+ (Neg); Ketones, Urine Neg (Neg); Leukocyte Esterase, Urine 3+ (Neg); Nitrite, Urine Neg (Neg); Protein, Urine 2+ (Neg); Specific Gravity, Urine 1.015 (1.003-1.022); Urobilinogen, Urine NORM (Normal)
[2024-06-27 22:46] LABS: Appearance, Urine Hazy (Clear); Color, Urine Yellow (P-Yellow)
[2024-06-27 22:48] LABS: Bacteria Mod /hpf; Squamous Epithelial Cells Few /hpf (Few); Transitional Epithelial Cells Few /hpf (0-Rare); White Blood Cells, Urine TNTC /hpf (0-5)
[2024-06-27] MEDS ORDERED: NS 1,000 ML IV SCH (22:50)
[2024-06-27] MEDS ORDERED: CefTRIAXone Sodium 1,000 MG in NS 50 ML IV ONE (22:55)
[2024-06-27] MEDS ORDERED: DOXY100 PO (23:19)
[2024-06-27] MEDS ORDERED: METO5 PO (23:20)
[2024-06-27] MEDS ORDERED: TORSE20 PO (23:21)
[2024-06-28] VITALS (14 sets, daily range): BP systolic 78–108; BP diastolic 42–69
[2024-06-28] MEDS ORDERED: FLU VACC TS2024-25(6MOS UP)/PF 45 MCG/0.5 ML SYRINGE IM ONE (00:35)
--- NOTE | 2024-06-28 02:19 | NUR ---
TRANSFER NOTE THIS RN RECEIVED REPORT FROM MIRTHA CROWLEY IN THE ED. PT TRANSFERRED TO PCU. PT A&O X3. UNSURE OF YEAR. PT ANSWERED OTHER ORIENTATION QUESTIONS APPROPRIATELY. DAUGHTERS AT BEDSIDE TO ASSIST WITH HISTORY. MED REC DONE. SBP 90'S. MAP >65 AT THIS TIME. SR ON MONITOR. PLACED ON 2L VIA NC D/T SPO2 88% ON RA. AFEBRILE. PT AMBULATED WITH CANE TO BATHROOM AND USED URINAL. PT DENIES CHEST PAIN/PRESSURE, DIZZINESS, AND SOB. BED IN LOWEST POSITION AND CALL LIGHT WITHIN REACH. BED ALARM ON FOR SAFETY/IMPULSIVITY
[2024-06-28] MEDS ORDERED: OxyCODONE HCL 5 MG TAB PO PRN (02:45)
[2024-06-28] MEDS ORDERED: NS 500 ML IV ONE (04:05)
[2024-06-28 04:14] LABS: BASOPHILS ABSOLUTE AUTO 0.04 K/mm3 (0.00-0.23); BASOPHILS PERCENT AUTO 1 % (0-2); EOSINOPHILS ABSOLUTE AUTO 0.19 K/mm3 (0.00-0.68); EOSINOPHILS PERCENT AUTO 2 % (0-6); Hematocrit 28.1 % (37.0-53.0); Hemoglobin 9.4 g/dL (13.5-17.5); IMMATURE GRAN ABSOLUTE AUTO 0.02 K/mm3 (0.00-0.10); IMMATURE GRAN PERCENT AUTO 0 % (0-1); LYMPHOCYTES ABSOLUTE AUTO 2.86 K/mm3 (0.84-5.20); LYMPHOCYTES PERCENT AUTO 37 % (21-46); MONOCYTES ABSOLUTE AUTO 0.92 K/mm3 (0.16-1.47); MONOCYTES PERCENT AUTO 12 % (4-13); Mean Corpuscular HGB 29.6 pg (26.0-34.0); Mean Corpuscular HGB Conc 33.5 g/dL (31.5-36.5); Mean Corpuscular Volume 88 fL (80-100); Mean Platelet Volume 9.5 fL (9.1-12.4); NEUTROPHILS ABSOLUTE AUTO 3.78 K/mm3 (1.96-9.15); NEUTROPHILS PERCENT AUTO 48 % (41-73); Platelet Count 167 K/mm3 (150-400); RDW Coefficient Variation 14.2 % (11.7-14.2); RDW Standard Deviation 45.5 fL (35.1-46.3); Red Blood Cell Count 3.18 M/mm3 (4.30-5.90); White Blood Cell Count 7.81 K/mm3 (4.00-11.30)
[2024-06-28] MEDS ORDERED: NS 1,000 ML IV SCH ×2 (04:15→18:55)
[2024-06-28] MEDS ORDERED: Acetaminophen 325 MG TABLET PO PRN (04:15)
[2024-06-28] MEDS ORDERED: FentaNYL Citrate 50 MCG/ML 2 ML Injection IV PRN (04:15)
[2024-06-28 04:46] LABS: Albumin, Blood 2.6 g/dL (3.4-5.0); Albumin/Globulin Ratio 0.8 (0.8-1.8); Bilirubin, Total 0.3 mg/dL (0.1-1.0); Bun/Creatinine Ratio 31.3 (12.0-20.0); Calcium, Blood 7.6 mg/dL (8.5-10.1); Creatinine, Blood 4.22 mg/dL (0.60-1.20); Globulin, Blood 3.4 g/dL (2.2-4.0); Magnesium, Blood 1.7 mg/dL (1.6-2.4); Potassium, Blood 2.9 mmol/L (3.5-5.5)
[2024-06-28] MEDS ORDERED: Potassium Chloride 10 Meq Tablet SA PO ONE ×3 (05:05→18:55)
--- NOTE | 2024-06-28 05:10 | NUR ---
SHIFT SUMMARY SEE PREVIOUS NOTE CONTACTED MD CARDONA REGARDING LOW BP. MANUAL BP NOTED TO BE 84/44 WITH MAP OF 57. WITH ORDER TO GIVE 500MLS AT 200MLS/HR X1. MD ROBERTS WITH ORDER TO START X1L NS AT 75MLS AFTER 500MLS COMPLETED. MAP >65 AT TIME OF WRITING THIS NOTE. MD BEAUCHAMP CONSULTED, ORDERS PLACED PER MD. WILL MEDICATE PER EMAR. PT ON 1L VIA NC TO MAINTAIN SPO2. OTHER VSS. PT USING URINAL WITH ASSISTANCE. PT DENIES CHEST PAIN/PRESSURE, DIZZINESS, AND SOB. BED IN LOWEST POSITION AND CALL LIGHT WITHIN REACH. THIS RN WILL REPORT TO ONCOMING DAYSHIFT RN.
[2024-06-28] MEDS ORDERED: Midodrine 5 MG Tab PO SCH ×2 (06:10→09:00)
[2024-06-28] MEDS ORDERED: Torsemide 20 MG TAB PO SCH (09:00)
[2024-06-28] MEDS ORDERED: Potassium Chloride 10 Meq Tablet SA PO SCH (09:00)
[2024-06-28] MEDS ORDERED: Metolazone 5 MG Tab PO SCH (09:00)
[2024-06-28] MEDS ORDERED: Losartan Potassium 25 MG Tab PO SCH (09:00)
[2024-06-28] MEDS ORDERED: Tamsulosin HCl 0.4 MG Cap PO SCH (09:00)
[2024-06-28] MEDS ORDERED: Doxycycline Hyclate 100 MG TAB PO SCH (09:00)
[2024-06-28] MEDS ORDERED: Lactated Ringer's 1,000 ML IV SCH ×2 (09:00→15:35)
[2024-06-28] MEDS ORDERED: OxyCODONE HCL 5 MG TAB PO SCH (09:00)
[2024-06-28] MEDS ORDERED: Empagliflozin 10 MG TAB PO SCH (09:00)
[2024-06-28] MEDS ORDERED: Calcitriol 0.25 MCG Cap PO SCH (09:00)
[2024-06-28] MEDS ORDERED: Apixaban 5 MG Tab PO SCH (09:00)
[2024-06-28 12:28] LABS: Calcium, Blood 7.3 mg/dL (8.5-10.1); Creatinine, Blood 3.7 mg/dL (0.60-1.20); Magnesium, Blood 1.6 mg/dL (1.6-2.4); Potassium, Blood 2.9 mmol/L (3.5-5.5)
[2024-06-28] MEDS ORDERED: Darbepoetin Alfa In Albumn Sol 40 MCG/0.4 ML SC ONE (16:00)
--- NOTE | 2024-06-28 17:09 | NUR ---
Upon recieving a referral for spiritual care, I visited the patient. He tells me about his 4 dtrs and 2 sons, he talks about the of his spouse of 65 yrs and he talks about his Penec[employer]al Yazidi stephanie. He shares about how God had saved him from near experiences, has saved him spiritual and how the patient loves God and wants to share that violeta and light with others. He is encouraged by conversation centered around God. I provided therapeutic listening, prayer that is in line with his yazdanism beliefs and theological insights. Patient responded well and showed signs of being encouraged in his stephanie and elevated in his mood. I will continue to remain available to patient and family.
--- NOTE | 2024-06-28 17:49 | NUR ---
SHIFT SUMMARY; ASSUMED CARE AT 0700. A/A/OX3, FORGETFUL AT TIMES. PLEASANT AND COOPERATIVE WITH CARE, ABLE TO MAKE NEEDS KNOWN. 1 PERSON ASSIST TO COMMODE, USES URINAL AT BEDSIDE. SPOKE WITH DR. BEAUCHAMP AND RESIDENT TEAM ABOUT HYPOTENSION, CONTINUE TO MONITOR AND OK WITH MAP OF >60. MIDODRINE PER EMAR. DENIES FEELING DIZZY. LR INFUSING AT 150ML/HR, NO ACUTE CHANGES, WILL CONTINUE TO MONITOR AND TREAT UNTIL REPORT GIVEN TO DOPE WEIGH OPERATOR RN TO ASSUME CARE.
[2024-06-28 18:45] LABS: Bun/Creatinine Ratio 35.5 (12.0-20.0); Calcium, Blood 7.5 mg/dL (8.5-10.1); Creatinine, Blood 3.32 mg/dL (0.60-1.20); Potassium, Blood 3.2 mmol/L (3.5-5.5)
[2024-06-28] MEDS ORDERED: CefTRIAXone Sodium 1,000 MG in NS 100 ML IV SCH (21:00)
[2024-06-28] MEDS ORDERED: Lactobacil 2-S.Thermo-Bifido 1 1 Cap PO SCH (21:00)
[2024-06-28] MEDS ORDERED: Rosuvastatin Calcium 10 MG Tab PO SCH (21:00)
[2024-06-28] MEDS ORDERED: Metoprolol Succinate 25 MG TABCR PO SCH ×2 (21:00)
[2024-06-28] MEDS ORDERED: Midodrine 2.5 MG Tab PO ONE ×2 (21:45→23:40)
--- NOTE | 2024-06-28 22:00 | NUR ---
ASSUMPTION OF CARE/ASSESSMENT: ASSUMED CARE OF PT AT 1900; REPORT RECIEVED FROM BRENDON CROWLEY. PT LYING IN BED, A&O X 4, APPROPRIATE AND COOPERATIVE WITH CARE; AT TIMES PT OBSERVED WITHDRAWN, BUT IS STILL PARTICIPATING IN PT CARE. CONTINUES ON NC @ 2LPM, LUNGS CLEAR WITH DIM BASES, CHEST PAIN WITH COUGHING AND REPOSITIONING. SR ON MONITOR WITH HR 60-70'S, SBP 110-130'S. TOLERATES PO INTAKE. DIALYSIS PT, OLIGURIA NOTED. USING CALL LIGHT APPROPRIATELY. BED LOWERED.
[2024-06-29] VITALS (7 sets, daily range): BP systolic 90–119; BP diastolic 48–73
[2024-06-29 03:51] LABS: Hemoglobin 10.6 g/dL (13.5-17.5); Mean Corpuscular HGB 28.6 pg (26.0-34.0); Mean Corpuscular HGB Conc 32.1 g/dL (31.5-36.5); Mean Corpuscular Volume 89 fL (80-100); Mean Platelet Volume 9.5 fL (9.1-12.4); Platelet Count 177 K/mm3 (150-400); RDW Standard Deviation 45.7 fL (35.1-46.3); Red Blood Cell Count 3.71 M/mm3 (4.30-5.90); White Blood Cell Count 8.49 K/mm3 (4.00-11.30)
[2024-06-29 04:15] LABS: Albumin, Blood 2.8 g/dL (3.4-5.0); Anion Gap 12 mmol/L (3-11); Blood Urea Nitrogen 106 mg/dL (8-24); Bun/Creatinine Ratio 38.8 (12.0-20.0); CO2, Blood 29 mmol/L (21-32); Calcium, Blood 7.7 mg/dL (8.5-10.1); Chloride, Blood 102 mmol/L (98-108); Creatinine, Blood 2.73 mg/dL (0.60-1.20); Glomerular Filtration Rate 22 (60-); Glucose, Blood 102 mg/dL (70-99); Magnesium, Blood 1.7 mg/dL (1.6-2.4); Phosphorus, Blood 4.8 mg/dL (2.5-4.9); Potassium, Blood 3.2 mmol/L (3.5-5.5); Sodium, Blood 140 mmol/L (136-145)
[2024-06-29] MEDS ORDERED: Potassium Chloride 10 Meq Tablet SA PO ONE (07:15)
[2024-06-29] MEDS ORDERED: Magnesium Sulf 2 GM/Water 50ML 50 ML IV STA (08:00)
[2024-06-29] MEDS ORDERED: Polyethylene Glycol 3350 17 gm PO ONE (08:30)
--- NOTE | 2024-06-29 15:37 | NUR ---
SHIFT SUMMARY; ASSUMED CARE AT O700. A/A/OX3 DURING SHIFT. BP STABLE WITH MAPS MAINTAINED >60. CONTINUED MIDODRINE PER EMAR. NS INFUSING AT 50ML/HR PER EMAR. REPOSITIONS SELF ON BED NEEDED. AMBULATED TO RESTROOM WITH 1P ASSIST AND FWW. REPORT TO KEO MCGOWAN TO ASSUME CARE.
--- NOTE | 2024-06-29 18:42 | NUR ---
END OF SHIFT
[2024-06-29] MEDS ORDERED: OxyCODONE HCL 5 MG TAB PO SCH (19:00)
[2024-06-30 03:18] VITALS: BP 111/74
[2024-06-30 04:41] LABS: Hematocrit 33.4 % (37.0-53.0); Hemoglobin 10.7 g/dL (13.5-17.5); Mean Corpuscular HGB 28.8 pg (26.0-34.0); Mean Corpuscular Volume 90 fL (80-100); Mean Platelet Volume 9.5 fL (9.1-12.4); Platelet Count 181 K/mm3 (150-400); RDW Coefficient Variation 13.8 % (11.7-14.2); RDW Standard Deviation 45.8 fL (35.1-46.3); Red Blood Cell Count 3.72 M/mm3 (4.30-5.90); White Blood Cell Count 6.36 K/mm3 (4.00-11.30)
[2024-06-30 05:14] LABS: Bun/Creatinine Ratio 41.2 (12.0-20.0); Calcium, Blood 8.3 mg/dL (8.5-10.1); Creatinine, Blood 1.7 mg/dL (0.60-1.20); Potassium, Blood 3.1 mmol/L (3.5-5.5)
[2024-06-30] MEDS ORDERED: OxyCODONE HCL 5 MG TAB PO SCH (06:00)
[2024-06-30] MEDS ORDERED: Potassium Chloride 20 MEQ TabCR PO ONE ×3 (06:35→09:55)
--- NOTE | 2024-06-30 07:29 | NUR ---
SHIFT SUMMARY PATIENT ALERT AND ORIENTED X4. MEDICATED PER EMAR FOR PAIN. PATIENT DENIES CHEST PAIN OR SHORTNESS OF BREATH, HOWEVER, HE DESATS TO THE 80'S WHILE SLEEPING AND REQUIRED 2 LITERS O2 VIA NC TO MAINTAIN SPO2 >90%. VITAL SIGNS STABLE. WILL CONTINUE TO MONITOR. CALL LIGHT WITHIN REACH.
[2024-06-30 08:03] VITALS: BP 131/84
[2024-06-30] MEDS ORDERED: Cefpodoxime Proxetil 200 MG Tab PO SCH (09:00)
[2024-06-30] MEDS ORDERED: Polyethylene Glycol 3350 17 gm PO ONE (09:00)
[2024-06-30] MEDS ORDERED: Magnesium Sulf 2 GM/Water 50ML 50 ML IV ONE (09:55)
[2024-06-30] MEDS ORDERED: VISBIOME 112.51 EACH PO (11:48)
[2024-06-30 13:16] VITALS: BP 114/65
--- NOTE | 2024-06-30 13:56 | NUR ---
Discharge Home Pt A&O x4. VSS. Spo2 > 92% on RA. Pt 1 person SBA w/ FWW for ambulation. w/ order for discharge home w/ home health. Discharge instructions reviewed w/ pt daughter & sent home w/ pt. PIVs removed. Pt taken out in wheelchair w/ belongings @ approx 1330.
== END 2024-06-30 13:30 | disposition home or self-care (01) | DRG 683 ==
LOC: ER 19:17 → ERHOLD 23:02 → PCU 23:02
PROVIDERS: Internal Medicine Nephrology; Registered Nurse; Student in an Organized Health Care Education/Training Program; ADMIT Internal Medicine
DX: N17.9 Acute kidney failure, unspecified (principal); I13.0 Hypertensive heart and chronic kidney disease with heart failure and stage 1 through stage 4 chronic kidney disease, or unspecified chronic kidney disease; I50.32 Chronic diastolic (congestive) heart failure; N39.0 Urinary tract infection, site not specified; N18.2 Chronic kidney disease, stage 2 (mild); N40.0 Benign prostatic hyperplasia without lower urinary tract symptoms; Z86.718 Personal history of other venous thrombosis and embolism; Z79.01 Long term (current) use of anticoagulants; Z86.14 Personal history of Methicillin resistant Staphylococcus aureus infection; E87.6 Hypokalemia; D63.1 Anemia in chronic kidney disease; M54.9 Dorsalgia, unspecified; E78.5 Hyperlipidemia, unspecified; Z96.652 Presence of left artificial knee joint; G89.29 Other chronic pain; Z66 Do not resuscitate; N25.81 Secondary hyperparathyroidism of renal origin; Z90.49 Acquired absence of other specified parts of digestive tract; Z98.890 Other specified postprocedural states; Z79.891 Long term (current) use of opiate analgesic; Z79.899 Other long term (current) drug therapy; Z87.891 Personal history of nicotine dependence; Z86.19 Personal history of other infectious and parasitic diseases
CPT/HCPCS: 0241U; 36415; 71046; 76770; 80048; 80053; 80069; 81001; 83605; 83735; 83880; 85025; 85027; 87077; 87086; 87186; 93005; 93010; 94762; 96374; 97161; 99285-25; A9270; J0696; J3010; J3475; J7030; J7120

== ENCOUNTER → 2024-07-11 | Outpatient (CLI) | payer OTHER ==
[~2024-07-11] MED LIST changes: +DOXY100 PO; +METO5 PO; +TORSE20 PO; +VISBIOME 112.51 EACH PO
[2024-07-12 11:27] LABS: Bacteria Many /hpf; Squamous Epithelial Cells Rare /hpf (Few); White Blood Cells, Urine 25-50 /hpf (0-5)
[2024-07-12 11:28] LABS: Granular Casts 0-2 /lpf (0); Transitional Epithelial Cells Rare /hpf (0-Rare)
== END ==
LOC: LAB 18:42 → LAB SHORT 18:42
PROVIDERS: Family Medicine
DX: R31.9 Hematuria, unspecified (principal); Z87.440 Personal history of urinary (tract) infections
CPT/HCPCS: 81015; 87086

== ENCOUNTER → 2024-09-06 | Outpatient (CLI) | payer OTHER ==
[2024-09-06 10:05] LABS: Microalbumin, Urine Quant. 34.4 mg/L (0.000-20.000); Protein, Urine Quantitative 11.4 mg/dL (0.0-11.9)
== END | disposition home or self-care (01) ==
LOC: LAB 08:23 → LAB SHORT 08:23
PROVIDERS: Internal Medicine Nephrology
DX: N18.30 Chronic kidney disease, stage 3 unspecified (principal); R80.9 Proteinuria, unspecified
CPT/HCPCS: 81050; 82043; 82570; 84156

== ENCOUNTER 2025-01-01 11:34 | Emergency (ER) | payer OTHER ==
[~2025-01-01] VITALS: Ht 167.6 cm; Wt 105.2 kg
[2025-01-01 13:42] LABS: BASOPHILS ABSOLUTE AUTO 0.03 K/mm3 (0.00-0.23); BASOPHILS PERCENT AUTO 0 % (0-2); EOSINOPHILS ABSOLUTE AUTO 0.01 K/mm3 (0.00-0.68); EOSINOPHILS PERCENT AUTO 0 % (0-6); Hematocrit 36.4 % (37.0-53.0); Hemoglobin 11.8 g/dL (13.5-17.5); IMMATURE GRAN ABSOLUTE AUTO 0.02 K/mm3 (0.00-0.10); IMMATURE GRAN PERCENT AUTO 0 % (0-1); LYMPHOCYTES ABSOLUTE AUTO 1.80 K/mm3 (0.84-5.20); LYMPHOCYTES PERCENT AUTO 22 % (21-46); MONOCYTES ABSOLUTE AUTO 0.85 K/mm3 (0.16-1.47); MONOCYTES PERCENT AUTO 11 % (4-13); Mean Corpuscular HGB Conc 32.4 g/dL (31.5-36.5); Mean Corpuscular Volume 96 fL (80-100); NEUTROPHILS ABSOLUTE AUTO 5.33 K/mm3 (1.96-9.15); NEUTROPHILS PERCENT AUTO 66 % (41-73); NRBC ABSOLUTE 0.00 K/mm3 (0.00-0.02); NRBC Auto 0.0 /100 WBC (0.0-0.2); Platelet Count 167 K/mm3 (150-400); RDW Coefficient Variation 13.3 % (11.7-14.2); RDW Standard Deviation 46.8 fL (35.1-46.3)
[2025-01-01 14:03] LABS: C-REACTIVE PROTEIN, EXT RANGE 3.73 mg/dL (0.000-0.300)
[2025-01-01 14:06] LABS: Alanine Aminotransfer (ALT/SGP 18.0 U/L (12-78); Albumin, Blood 3.0 g/dL (3.4-5.0); Albumin/Globulin Ratio 0.8 (0.8-1.8); Anion Gap 6.0 mmol/L (3-11); Aspartate Aminotrans (AST/SGOT 14.0 U/L (12-37); Bilirubin, Total 0.9 mg/dL (0.1-1.0); Blood Urea Nitrogen 26.0 mg/dL (8-24); CO2, Blood 32.0 mmol/L (21-32); Calcium, Blood 8.3 mg/dL (8.5-10.1); Chloride, Blood 100.0 mmol/L (98-108); Creatinine, Blood 1.59 mg/dL (0.60-1.20); Globulin, Blood 3.7 g/dL (2.2-4.0); Glucose, Blood 152.0 mg/dL (70-99); Potassium, Blood 3.6 mmol/L (3.5-5.5); Sodium, Blood 134.0 mmol/L (136-145); Total Protein, Blood 6.7 g/dL (6.4-8.2)
[2025-01-01] MEDS ORDERED: Percocet 7.5-31 EACH PO (16:49)
[2025-01-01 17:04] VITALS: BP 120/53
== END 2025-01-01 16:56 | disposition home or self-care (01) ==
LOC: ER 11:34
PROVIDERS: Student in an Organized Health Care Education/Training Program
DX: M25.462 Effusion, left knee (principal); M65.962 Unspecified synovitis and tenosynovitis, left lower leg; I10 Essential (primary) hypertension; F17.220 Nicotine dependence, chewing tobacco, uncomplicated
CPT/HCPCS: 73701; 80053; 83605; 85025; 85651; 86140; 99284-25; Q9967

== ENCOUNTER 2025-01-09 12:16 | Emergency (ER) | payer OTHER ==
[~2025-01-09] VITALS: Ht 167.6 cm; Wt 99.8 kg
[~2025-01-09 12:16] MED LIST changes: +Percocet 7.5-31 EACH PO
[2025-01-09 13:19] LABS: BASOPHILS ABSOLUTE AUTO 0.05 K/mm3 (0.00-0.23); BASOPHILS PERCENT AUTO 1 % (0-2); EOSINOPHILS ABSOLUTE AUTO 0.05 K/mm3 (0.00-0.68); EOSINOPHILS PERCENT AUTO 1 % (0-6); Hematocrit 35.5 % (37.0-53.0); Hemoglobin 11.4 g/dL (13.5-17.5); IMMATURE GRAN ABSOLUTE AUTO 0.02 K/mm3 (0.00-0.10); IMMATURE GRAN PERCENT AUTO 0 % (0-1); LYMPHOCYTES ABSOLUTE AUTO 1.86 K/mm3 (0.84-5.20); LYMPHOCYTES PERCENT AUTO 25 % (21-46); MONOCYTES ABSOLUTE AUTO 0.58 K/mm3 (0.16-1.47); MONOCYTES PERCENT AUTO 8 % (4-13); Mean Corpuscular HGB Conc 32.1 g/dL (31.5-36.5); Mean Corpuscular Volume 95 fL (80-100); NEUTROPHILS ABSOLUTE AUTO 4.75 K/mm3 (1.96-9.15); NEUTROPHILS PERCENT AUTO 65 % (41-73); NRBC ABSOLUTE 0.00 K/mm3 (0.00-0.02); NRBC Auto 0.0 /100 WBC (0.0-0.2); Platelet Count 248 K/mm3 (150-400); RDW Coefficient Variation 13.1 % (11.7-14.2); RDW Standard Deviation 45.1 fL (35.1-46.3)
[2025-01-09 14:16] LABS: Alanine Aminotransfer (ALT/SGP 14.0 U/L (12-78); Albumin, Blood 2.8 g/dL (3.4-5.0); Albumin/Globulin Ratio 0.6 (0.8-1.8); Anion Gap 10.0 mmol/L (3-11); Aspartate Aminotrans (AST/SGOT 18.0 U/L (12-37); Bilirubin, Total 0.5 mg/dL (0.1-1.0); Blood Urea Nitrogen 25.0 mg/dL (8-24); C-REACTIVE PROTEIN, EXT RANGE 7.1 mg/dL (0.000-0.300); CO2, Blood 27.0 mmol/L (21-32); Calcium, Blood 8.6 mg/dL (8.5-10.1); Chloride, Blood 102.0 mmol/L (98-108); Creatinine, Blood 1.84 mg/dL (0.60-1.20); Globulin, Blood 4.5 g/dL (2.2-4.0); Glucose, Blood 108.0 mg/dL (70-99); Potassium, Blood 3.6 mmol/L (3.5-5.5); Sodium, Blood 135.0 mmol/L (136-145); Total Protein, Blood 7.3 g/dL (6.4-8.2)
[2025-01-09] MEDS ORDERED: NS 1,000 ML IV SCH (15:35)
[2025-01-09 18:30] VITALS: BP 137/65
== END 2025-01-09 19:38 | disposition home or self-care (01) ==
LOC: ER 12:16
PROVIDERS: Physician Assistant
DX: M25.562 Pain in left knee (principal); E86.0 Dehydration; D64.9 Anemia, unspecified; R70.0 Elevated erythrocyte sedimentation rate; R79.82 Elevated C-reactive protein (CRP); I11.0 Hypertensive heart disease with heart failure; I50.30 Unspecified diastolic (congestive) heart failure; F17.220 Nicotine dependence, chewing tobacco, uncomplicated; Z96.652 Presence of left artificial knee joint; Z86.718 Personal history of other venous thrombosis and embolism; Z79.01 Long term (current) use of anticoagulants; Z79.84 Long term (current) use of oral hypoglycemic drugs; Z79.899 Other long term (current) drug therapy; Z59.89 Other problems related to housing and economic circumstances
CPT/HCPCS: 73560-LT; 80053; 83605; 85025; 85651; 86140; 87040; 96360; 99283-25; A9270

== ENCOUNTER → 2025-01-12 | Outpatient (CLI) | payer OTHER ==
[2025-01-12 09:46] LABS: BODY FLUID RBC 0.004 M/mm3 (0-0)
[2025-01-12 10:14] LABS: RBC Count, Synovial Fluid 4000 /mm3 (0-0)
[2025-01-12 10:15] LABS: WBC Count, Synovial Fluid 28596 /mm3 (0-180)
[2025-01-12 10:17] LABS: Appearance, Synovial Fluid Turbid (Clear); Color, Synovial Fluid Yellow (None-P Yel)
[2025-01-12 10:43] LABS: Crystals, Synovial Fluid Not Seen (Not Seen); Eos, Synovial Fluid 1 % (0-2); Lymphs, Synovial Fluid 3 % (0-15); Monocytes/Macrophages, Synovia 1 % (0-65); Neutrophils, Synovial Fluid 95 % (0-24)
== END | disposition home or self-care (01) ==
LOC: LAB SHORT 08:40 → LAB 08:40
PROVIDERS: Orthopaedic Surgery
DX: T84.54XA Infection and inflammatory reaction due to internal left knee prosthesis, initial encounter (principal)
CPT/HCPCS: 87070; 87077; 87186; 87205; 89051

== ENCOUNTER → 2025-02-16 | Outpatient (CLI) | payer OTHER ==
[2025-02-16 16:38] LABS: BASOPHILS ABSOLUTE AUTO 0.05 K/mm3 (0.00-0.23); BASOPHILS PERCENT AUTO 1 % (0-2); EOSINOPHILS ABSOLUTE AUTO 0.20 K/mm3 (0.00-0.68); EOSINOPHILS PERCENT AUTO 3 % (0-6); Hematocrit 31.9 % (37.0-53.0); Hemoglobin 10.1 g/dL (13.5-17.5); IMMATURE GRAN ABSOLUTE AUTO 0.05 K/mm3 (0.00-0.10); IMMATURE GRAN PERCENT AUTO 1 % (0-1); LYMPHOCYTES ABSOLUTE AUTO 1.57 K/mm3 (0.84-5.20); LYMPHOCYTES PERCENT AUTO 24 % (21-46); MONOCYTES ABSOLUTE AUTO 0.48 K/mm3 (0.16-1.47); MONOCYTES PERCENT AUTO 7 % (4-13); Mean Corpuscular HGB Conc 31.7 g/dL (31.5-36.5); Mean Corpuscular Volume 97 fL (80-100); NEUTROPHILS ABSOLUTE AUTO 4.25 K/mm3 (1.96-9.15); NEUTROPHILS PERCENT AUTO 64 % (41-73); NRBC ABSOLUTE 0.00 K/mm3 (0.00-0.02); NRBC Auto 0.0 /100 WBC (0.0-0.2); Platelet Count 239 K/mm3 (150-400); RDW Coefficient Variation 13.9 % (11.7-14.2); RDW Standard Deviation 49.2 fL (35.1-46.3)
[2025-02-16 17:24] LABS: C-REACTIVE PROTEIN, EXT RANGE 6.01 mg/dL (0.000-0.300)
[2025-02-16 17:37] LABS: Alanine Aminotransfer (ALT/SGP 14.0 U/L (12-78); Albumin, Blood 2.7 g/dL (3.4-5.0); Albumin/Globulin Ratio 0.7 (0.8-1.8); Anion Gap 9.0 mmol/L (3-11); Aspartate Aminotrans (AST/SGOT 20.0 U/L (12-37); Bilirubin, Total 0.6 mg/dL (0.1-1.0); Blood Urea Nitrogen 20.0 mg/dL (8-24); CO2, Blood 30.0 mmol/L (21-32); Calcium, Blood 8.7 mg/dL (8.5-10.1); Chloride, Blood 101.0 mmol/L (98-108); Creatinine, Blood 1.64 mg/dL (0.60-1.20); Globulin, Blood 3.8 g/dL (2.2-4.0); Glucose, Blood 155.0 mg/dL (70-99); Potassium, Blood 3.9 mmol/L (3.5-5.5); Sodium, Blood 136.0 mmol/L (136-145); Total Protein, Blood 6.5 g/dL (6.4-8.2)
== END ==
LOC: LAB SHORT 15:54 → LAB 15:54
PROVIDERS: Internal Medicine Infectious Disease
DX: T84.54XA Infection and inflammatory reaction due to internal left knee prosthesis, initial encounter (principal)
CPT/HCPCS: 80053; 85025; 86140

== ENCOUNTER → 2025-02-23 | Outpatient (CLI) | payer OTHER ==
[2025-02-23 19:34] LABS: BASOPHILS ABSOLUTE AUTO 0.07 K/mm3 (0.00-0.23); BASOPHILS PERCENT AUTO 1 % (0-2); EOSINOPHILS ABSOLUTE AUTO 0.25 K/mm3 (0.00-0.68); EOSINOPHILS PERCENT AUTO 3 % (0-6); Hematocrit 34.8 % (37.0-53.0); Hemoglobin 11.2 g/dL (13.5-17.5); IMMATURE GRAN ABSOLUTE AUTO 0.02 K/mm3 (0.00-0.10); IMMATURE GRAN PERCENT AUTO 0 % (0-1); LYMPHOCYTES ABSOLUTE AUTO 1.96 K/mm3 (0.84-5.20); LYMPHOCYTES PERCENT AUTO 23 % (21-46); MONOCYTES ABSOLUTE AUTO 0.56 K/mm3 (0.16-1.47); MONOCYTES PERCENT AUTO 7 % (4-13); Mean Corpuscular HGB Conc 32.2 g/dL (31.5-36.5); Mean Corpuscular Volume 97 fL (80-100); NEUTROPHILS ABSOLUTE AUTO 5.75 K/mm3 (1.96-9.15); NEUTROPHILS PERCENT AUTO 67 % (41-73); NRBC ABSOLUTE 0.00 K/mm3 (0.00-0.02); NRBC Auto 0.0 /100 WBC (0.0-0.2); Platelet Count 300 K/mm3 (150-400); RDW Coefficient Variation 13.5 % (11.7-14.2); RDW Standard Deviation 48.2 fL (35.1-46.3)
[2025-02-23 19:42] LABS: C-REACTIVE PROTEIN, EXT RANGE 8.300 mg/dL (0.000-0.300)
[2025-02-23 19:46] LABS: Alanine Aminotransfer (ALT/SGP 15 U/L (12-78); Albumin, Blood 3.0 g/dL (3.4-5.0); Albumin/Globulin Ratio 0.7 (0.8-1.8); Anion Gap 11 mmol/L (3-11); Aspartate Aminotrans (AST/SGOT 34 U/L (12-37); Bilirubin, Total 0.9 mg/dL (0.1-1.0); Blood Urea Nitrogen 27 mg/dL (8-24); CO2, Blood 29 mmol/L (21-32); Calcium, Blood 8.8 mg/dL (8.5-10.1); Chloride, Blood 99 mmol/L (98-108); Creatinine, Blood 2.19 mg/dL (0.60-1.20); Globulin, Blood 4.2 g/dL (2.2-4.0); Glucose, Blood 151 mg/dL (70-99); Phosphorus, Blood 2.9 mg/dL (2.5-4.9); Potassium, Blood 3.3 mmol/L (3.5-5.5); Sodium, Blood 136 mmol/L (136-145); Total Protein, Blood 7.2 g/dL (6.4-8.2)
== END ==
LOC: LAB 15:00 → LAB SHORT 15:00
PROVIDERS: Internal Medicine Infectious Disease
DX: N18.30 Chronic kidney disease, stage 3 unspecified (principal); R76.9 Abnormal immunological finding in serum, unspecified; R94.5 Abnormal results of liver function studies; R94.6 Abnormal results of thyroid function studies; T84.54XD Infection and inflammatory reaction due to internal left knee prosthesis, subsequent encounter; Z79.899 Other long term (current) drug therapy
CPT/HCPCS: 80053; 84100; 85025; 86140

== ENCOUNTER 2025-03-02 18:50 | Inpatient (IN) | payer OTHER ==
[~2025-03-02] VITALS: Ht 167.6 cm; Wt 95.7 kg
[~2025-03-02 18:50] MED LIST changes: -DAPTOMYCIN IV; -DOCU100 PO; -DULCOLAX400 MG/5 M PO; -SENN187 PO
[2025-03-02 19:33] LABS: BASOPHILS ABSOLUTE AUTO 0.06 K/mm3 (0.00-0.23); BASOPHILS PERCENT AUTO 1 % (0-2); EOSINOPHILS ABSOLUTE AUTO 0.41 K/mm3 (0.00-0.68); EOSINOPHILS PERCENT AUTO 5 % (0-6); Hematocrit 33.0 % (37.0-53.0); Hemoglobin 10.7 g/dL (13.5-17.5); IMMATURE GRAN ABSOLUTE AUTO 0.05 K/mm3 (0.00-0.10); IMMATURE GRAN PERCENT AUTO 1 % (0-1); LYMPHOCYTES ABSOLUTE AUTO 2.18 K/mm3 (0.84-5.20); LYMPHOCYTES PERCENT AUTO 29 % (21-46); MONOCYTES ABSOLUTE AUTO 0.80 K/mm3 (0.16-1.47); MONOCYTES PERCENT AUTO 11 % (4-13); Mean Corpuscular HGB Conc 32.4 g/dL (31.5-36.5); Mean Corpuscular Volume 94 fL (80-100); NEUTROPHILS ABSOLUTE AUTO 4.07 K/mm3 (1.96-9.15); NEUTROPHILS PERCENT AUTO 54 % (41-73); NRBC ABSOLUTE 0.00 K/mm3 (0.00-0.02); NRBC Auto 0.0 /100 WBC (0.0-0.2); Platelet Count 316 K/mm3 (150-400); RDW Coefficient Variation 13.4 % (11.7-14.2); RDW Standard Deviation 46.4 fL (35.1-46.3)
[2025-03-02] MEDS ORDERED: NS 1,000 ML IV SCH (19:45)
[2025-03-02 20:02] LABS: Alanine Aminotransfer (ALT/SGP 47.0 U/L (12-78); Albumin, Blood 2.9 g/dL (3.4-5.0); Albumin/Globulin Ratio 0.7 (0.8-1.8); Anion Gap 11.0 mmol/L (3-11); Aspartate Aminotrans (AST/SGOT 79.0 U/L (12-37); Bilirubin, Total 0.7 mg/dL (0.1-1.0); Blood Urea Nitrogen 43.0 mg/dL (8-24); CO2, Blood 24.0 mmol/L (21-32); Calcium, Blood 8.8 mg/dL (8.5-10.1); Chloride, Blood 103.0 mmol/L (98-108); Creatinine, Blood 3.4 mg/dL (0.60-1.20); Globulin, Blood 4.1 g/dL (2.2-4.0); Glucose, Blood 120.0 mg/dL (70-99); Potassium, Blood 4.2 mmol/L (3.5-5.5); Sodium, Blood 134.0 mmol/L (136-145); Total Protein, Blood 7.0 g/dL (6.4-8.2)
[2025-03-02] MEDS ORDERED: Ondansetron HCl 2 MG / ML 2ML Vial IV PRN (22:40)
[2025-03-02] MEDS ORDERED: FLU VACC TS2025(65UP)/MF59C/PF 45 MCG/0.5 ML SYRINGE IM SCH (22:40)
[2025-03-02] MEDS ORDERED: Naloxone HCl 0.4MG / ML 1ML Vial IV PRN (22:40)
[2025-03-02 22:55] LABS: Phosphorus, Blood 2.6 mg/dL (2.5-4.9)
[2025-03-02 22:59] LABS: Source, Urine Clean Catch
[2025-03-02 23:17] LABS: Bilirubin, Urine Neg (Neg); Glucose Qualitative, Urine 2+ (Neg); Ketones, Urine Neg (Neg); Leukocyte Esterase, Urine Neg (Neg); Protein, Urine 1+ (Neg); Specific Gravity, Urine 1.010 (1.003-1.022); Urobilinogen, Urine NORM (Normal)
[2025-03-02 23:26] LABS: Color, Urine Pale Yellow (P-Yellow)
[2025-03-02 23:27] LABS: Red Blood Cells, Urine 0-2 /hpf (0-2)
[2025-03-03] MEDS ORDERED: LOSA25 PO (02:02)
[2025-03-03] MEDS ORDERED: TORSE20 PO (02:08)
[2025-03-03 03:04] VITALS: BP 111/84
[2025-03-03] MEDS ORDERED: Darbepoetin (Pharmacy Consult) SC SCH (04:25)
[2025-03-03 06:06] LABS: BASOPHILS ABSOLUTE AUTO 0.05 K/mm3 (0.00-0.23); BASOPHILS PERCENT AUTO 1 % (0-2); EOSINOPHILS ABSOLUTE AUTO 0.58 K/mm3 (0.00-0.68); EOSINOPHILS PERCENT AUTO 9 % (0-6); Hematocrit 31.3 % (37.0-53.0); Hemoglobin 9.9 g/dL (13.5-17.5); IMMATURE GRAN ABSOLUTE AUTO 0.02 K/mm3 (0.00-0.10); IMMATURE GRAN PERCENT AUTO 0 % (0-1); LYMPHOCYTES ABSOLUTE AUTO 1.60 K/mm3 (0.84-5.20); LYMPHOCYTES PERCENT AUTO 24 % (21-46); MONOCYTES ABSOLUTE AUTO 0.76 K/mm3 (0.16-1.47); MONOCYTES PERCENT AUTO 12 % (4-13); Mean Corpuscular HGB Conc 31.6 g/dL (31.5-36.5); Mean Corpuscular Volume 94 fL (80-100); NEUTROPHILS ABSOLUTE AUTO 3.55 K/mm3 (1.96-9.15); NEUTROPHILS PERCENT AUTO 54 % (41-73); NRBC ABSOLUTE 0.00 K/mm3 (0.00-0.02); NRBC Auto 0.0 /100 WBC (0.0-0.2); Platelet Count 274 K/mm3 (150-400); RDW Coefficient Variation 13.4 % (11.7-14.2); RDW Standard Deviation 46.4 fL (35.1-46.3)
[2025-03-03 06:37] LABS: Alanine Aminotransfer (ALT/SGP 41.0 U/L (12-78); Albumin, Blood 2.6 g/dL (3.4-5.0); Albumin/Globulin Ratio 0.7 (0.8-1.8); Anion Gap 9.0 mmol/L (3-11); Aspartate Aminotrans (AST/SGOT 68.0 U/L (12-37); Bilirubin, Total 0.6 mg/dL (0.1-1.0); Blood Urea Nitrogen 43.0 mg/dL (8-24); CO2, Blood 27.0 mmol/L (21-32); Calcium, Blood 8.5 mg/dL (8.5-10.1); Chloride, Blood 105.0 mmol/L (98-108); Creatinine, Blood 2.67 mg/dL (0.60-1.20); Globulin, Blood 3.6 g/dL (2.2-4.0); Glucose, Blood 111.0 mg/dL (70-99); Magnesium, Blood 1.8 mg/dL (1.6-2.4); Phosphorus, Blood 2.8 mg/dL (2.5-4.9); Potassium, Blood 3.7 mmol/L (3.5-5.5); Sodium, Blood 137.0 mmol/L (136-145); Total Protein, Blood 6.2 g/dL (6.4-8.2)
[2025-03-03] MEDS ORDERED: NS 1,000 ML IV SCH (08:15)
[2025-03-03 08:20] VITALS: BP 142/47
[2025-03-03] MEDS ORDERED: Lactobacil 2-S.Thermo-Bifido 1 1 Cap PO SCH (09:00)
[2025-03-03 12:33] VITALS: BP 119/60
[2025-03-03] MEDS ORDERED: Magnesium Hydroxide Conc 10 ML UDC PO PRN (12:55)
[2025-03-03 15:52] VITALS: BP 113/52
--- NOTE | 2025-03-03 18:14 | NUR ---
SHIFT SUMMARY PT IS A/OX4. UP WITH 1 PERSON ASSIST WITH FWW. NO ACUTE CHANGES THROUGHOUT THIS SHIFT. ON TELE RUNNING SINUS RYTHYM. CONTINUOUS NS RUNNING @ 50 ML/HR. DRESSING TO LEFT KNEE REMAINS C/D/I. PT ENCOURAGE TO VOID USING THE URINAL FOR MEASURING. PT REPORTS URINARY URGENCY AND INCONTINENCE. FAMILY AT BEDSIDE THROUGHOUT THIS SHIFT. PT IS PLEASANT AND COOPERATIVE WITH CARE AND CALLS APPRPRIATELY USING THE CALL LIGHT.
[2025-03-03 19:36] VITALS: BP 117/67
[2025-03-04 00:02] VITALS: BP 123/58
[2025-03-04 03:33] VITALS: BP 125/58
[2025-03-04 05:25] LABS: BASOPHILS ABSOLUTE AUTO 0.04 K/mm3 (0.00-0.23); BASOPHILS PERCENT AUTO 1 % (0-2); EOSINOPHILS ABSOLUTE AUTO 0.57 K/mm3 (0.00-0.68); EOSINOPHILS PERCENT AUTO 9 % (0-6); Hematocrit 29.8 % (37.0-53.0); Hemoglobin 9.4 g/dL (13.5-17.5); IMMATURE GRAN ABSOLUTE AUTO 0.01 K/mm3 (0.00-0.10); IMMATURE GRAN PERCENT AUTO 0 % (0-1); LYMPHOCYTES ABSOLUTE AUTO 1.79 K/mm3 (0.84-5.20); LYMPHOCYTES PERCENT AUTO 27 % (21-46); MONOCYTES ABSOLUTE AUTO 0.76 K/mm3 (0.16-1.47); MONOCYTES PERCENT AUTO 12 % (4-13); Mean Corpuscular HGB Conc 31.5 g/dL (31.5-36.5); Mean Corpuscular Volume 94 fL (80-100); NEUTROPHILS ABSOLUTE AUTO 3.46 K/mm3 (1.96-9.15); NEUTROPHILS PERCENT AUTO 52 % (41-73); NRBC ABSOLUTE 0.00 K/mm3 (0.00-0.02); NRBC Auto 0.0 /100 WBC (0.0-0.2); Platelet Count 247 K/mm3 (150-400); RDW Coefficient Variation 13.2 % (11.7-14.2); RDW Standard Deviation 46.6 fL (35.1-46.3)
[2025-03-04 06:08] LABS: Alanine Aminotransfer (ALT/SGP 36.0 U/L (12-78); Albumin, Blood 2.4 g/dL (3.4-5.0); Albumin/Globulin Ratio 0.7 (0.8-1.8); Anion Gap 8.0 mmol/L (3-11); Aspartate Aminotrans (AST/SGOT 50.0 U/L (12-37); Bilirubin, Total 0.6 mg/dL (0.1-1.0); Blood Urea Nitrogen 29.0 mg/dL (8-24); CO2, Blood 27.0 mmol/L (21-32); Calcium, Blood 8.5 mg/dL (8.5-10.1); Chloride, Blood 107.0 mmol/L (98-108); Creatinine, Blood 1.73 mg/dL (0.60-1.20); Globulin, Blood 3.4 g/dL (2.2-4.0); Glucose, Blood 113.0 mg/dL (70-99); Potassium, Blood 3.8 mmol/L (3.5-5.5); Sodium, Blood 138.0 mmol/L (136-145); Total Protein, Blood 5.8 g/dL (6.4-8.2)
--- NOTE | 2025-03-04 07:22 | NUR ---
CONSULAR OFFICER SUMMARY PT A&OX4, VSS. USES CALL LIGHT AND COMMUNICATES NEEDS EFFECTIVELY. PT HAS BEEN ASLEEP FOR MOST OF THE SHIFT. CHEST RISE/RESPIRATIONS NEEDED. REMAINS ON TELE. SR AT 63. [facility] PICC CONTINUING TO RUN NS AT 50 PER EMAR. BED RAILS UP X 2, BED IN LOWEST POSITION, BED WHEELS LOCKED, PERSONAL BELONGINGS AND CALL LIGHT WITHIN REACH FOR SAFETY.
[2025-03-04 08:26] VITALS: BP 133/88
[2025-03-04 12:30] VITALS: BP 121/65
[2025-03-04] MEDS ORDERED: DAPTOmycin 750 MG in NS 50 ML IV SCH (14:00)
[2025-03-04 15:07] VITALS: BP 119/59
[2025-03-04 15:31] LABS: Anion Gap 8.0 mmol/L (3-11); Blood Urea Nitrogen 24.0 mg/dL (8-24); CO2, Blood 26.0 mmol/L (21-32); Calcium, Blood 8.3 mg/dL (8.5-10.1); Chloride, Blood 108.0 mmol/L (98-108); Creatinine, Blood 1.42 mg/dL (0.60-1.20); Glucose, Blood 127.0 mg/dL (70-99); Potassium, Blood 3.8 mmol/L (3.5-5.5); Sodium, Blood 138.0 mmol/L (136-145)
[2025-03-04] MEDS ORDERED: Darbepoetin Alfa In Albumn Sol 40 MCG/0.4 ML SC SCH (16:00)
[2025-03-04] MEDS ORDERED: DOCU100 PO (16:19)
[2025-03-04] MEDS ORDERED: SENN187 PO (16:20)
[2025-03-04] MEDS ORDERED: DULCOLAX400 MG/5 M PO (16:20)
[2025-03-04] MEDS ORDERED: DAPTOMYCIN IV (16:23)
--- NOTE | 2025-03-04 17:20 | NUR ---
PT DISCHARGED TO HOME. ALL VALUABLES RETURNED AND SENT HOME WITH THE PT. DISCHARGE INSTRUCTIONS PROVIDED AND EDUCATED ON AT TIME OF DISCHARGE.
== END 2025-03-04 17:31 | disposition home or self-care (01) | DRG 683 ==
LOC: ER 18:50 → MEDS 18:51
PROVIDERS: Internal Medicine Nephrology; Nurse Practitioner Acute Care; Student in an Organized Health Care Education/Training Program; ADMIT Student in an Organized Health Care Education/Training Program
DX: N17.9 Acute kidney failure, unspecified (principal); E87.1 Hypo-osmolality and hyponatremia; I13.0 Hypertensive heart and chronic kidney disease with heart failure and stage 1 through stage 4 chronic kidney disease, or unspecified chronic kidney disease; I50.32 Chronic diastolic (congestive) heart failure; T84.54XA Infection and inflammatory reaction due to internal left knee prosthesis, initial encounter; I95.9 Hypotension, unspecified; N40.0 Benign prostatic hyperplasia without lower urinary tract symptoms; N18.32 Chronic kidney disease, stage 3b; Z66 Do not resuscitate; D63.1 Anemia in chronic kidney disease; M54.50 Low back pain, unspecified; G89.29 Other chronic pain; E78.5 Hyperlipidemia, unspecified; E88.09 Other disorders of plasma-protein metabolism, not elsewhere classified; Z90.49 Acquired absence of other specified parts of digestive tract; Z96.642 Presence of left artificial hip joint; Z98.890 Other specified postprocedural states; Z86.718 Personal history of other venous thrombosis and embolism; Z79.01 Long term (current) use of anticoagulants; Z79.84 Long term (current) use of oral hypoglycemic drugs; Z79.899 Other long term (current) drug therapy; Y79.2 Prosthetic and other implants, materials and accessory orthopedic devices associated with adverse incidents
CPT/HCPCS: 36415; 76770; 80048; 80053; 81001; 82550; 83735; 84100; 85025; 93306; 96360; 96361; 99285-25; A9270; G0378; J0878; J0881; J7030; J7120

== ENCOUNTER → 2025-03-02 | Outpatient (CLI) | payer OTHER ==
[~2025-03-02] MED LIST changes: +DAPTOMYCIN IV; +DOCU100 PO; +DULCOLAX400 MG/5 M PO; +SENN187 PO
[2025-03-02 16:04] LABS: BASOPHILS ABSOLUTE AUTO 0.08 K/mm3 (0.00-0.23); BASOPHILS PERCENT AUTO 1 % (0-2); EOSINOPHILS ABSOLUTE AUTO 0.45 K/mm3 (0.00-0.68); EOSINOPHILS PERCENT AUTO 6 % (0-6); Hematocrit 33.4 % (37.0-53.0); Hemoglobin 10.4 g/dL (13.5-17.5); IMMATURE GRAN ABSOLUTE AUTO 0.03 K/mm3 (0.00-0.10); IMMATURE GRAN PERCENT AUTO 0 % (0-1); LYMPHOCYTES ABSOLUTE AUTO 2.04 K/mm3 (0.84-5.20); LYMPHOCYTES PERCENT AUTO 25 % (21-46); MONOCYTES ABSOLUTE AUTO 0.74 K/mm3 (0.16-1.47); MONOCYTES PERCENT AUTO 9 % (4-13); Mean Corpuscular HGB Conc 31.1 g/dL (31.5-36.5); Mean Corpuscular Volume 96 fL (80-100); NEUTROPHILS ABSOLUTE AUTO 4.72 K/mm3 (1.96-9.15); NEUTROPHILS PERCENT AUTO 59 % (41-73); NRBC ABSOLUTE 0.00 K/mm3 (0.00-0.02); NRBC Auto 0.0 /100 WBC (0.0-0.2); Platelet Count 320 K/mm3 (150-400); RDW Coefficient Variation 13.5 % (11.7-14.2); RDW Standard Deviation 47.7 fL (35.1-46.3)
[2025-03-02 16:23] LABS: Alanine Aminotransfer (ALT/SGP 47.0 U/L (12-78); Albumin, Blood 2.9 g/dL (3.4-5.0); Albumin/Globulin Ratio 0.8 (0.8-1.8); Anion Gap 14.0 mmol/L (3-11); Aspartate Aminotrans (AST/SGOT 83.0 U/L (12-37); Bilirubin, Total 0.8 mg/dL (0.1-1.0); Blood Urea Nitrogen 42.0 mg/dL (8-24); C-REACTIVE PROTEIN, EXT RANGE 10.1 mg/dL (0.000-0.300); CO2, Blood 24.0 mmol/L (21-32); Calcium, Blood 9.0 mg/dL (8.5-10.1); Chloride, Blood 102.0 mmol/L (98-108); Creatinine, Blood 2.94 mg/dL (0.60-1.20); Globulin, Blood 3.8 g/dL (2.2-4.0); Glucose, Blood 112.0 mg/dL (70-99); Potassium, Blood 3.6 mmol/L (3.5-5.5); Sodium, Blood 136.0 mmol/L (136-145); Total Protein, Blood 6.7 g/dL (6.4-8.2)
== END | disposition home or self-care (01) ==
LOC: LAB 12:10 → LAB SHORT 12:10
PROVIDERS: Internal Medicine Infectious Disease
DX: T84.54XA Infection and inflammatory reaction due to internal left knee prosthesis, initial encounter (principal); I50.9 Heart failure, unspecified; E87.6 Hypokalemia; N18.30 Chronic kidney disease, stage 3 unspecified; D63.1 Anemia in chronic kidney disease; Z79.899 Other long term (current) drug therapy
CPT/HCPCS: 80053; 85025; 86140

== ENCOUNTER → 2025-03-09 | Outpatient (CLI) | payer OTHER ==
[~2025-03-09] MED LIST changes: +DAPTOMYCIN IV; +DOCU100 PO; +DULCOLAX400 MG/5 M PO; +SENN187 PO
[2025-03-09 17:54] LABS: BASOPHILS ABSOLUTE AUTO 0.06 K/mm3 (0.00-0.23); BASOPHILS PERCENT AUTO 1 % (0-2); EOSINOPHILS ABSOLUTE AUTO 0.37 K/mm3 (0.00-0.68); EOSINOPHILS PERCENT AUTO 5 % (0-6); Hematocrit 31.8 % (37.0-53.0); Hemoglobin 9.9 g/dL (13.5-17.5); IMMATURE GRAN ABSOLUTE AUTO 0.04 K/mm3 (0.00-0.10); IMMATURE GRAN PERCENT AUTO 1 % (0-1); LYMPHOCYTES ABSOLUTE AUTO 1.31 K/mm3 (0.84-5.20); LYMPHOCYTES PERCENT AUTO 18 % (21-46); MONOCYTES ABSOLUTE AUTO 0.56 K/mm3 (0.16-1.47); MONOCYTES PERCENT AUTO 8 % (4-13); Mean Corpuscular HGB Conc 31.1 g/dL (31.5-36.5); Mean Corpuscular Volume 95 fL (80-100); NEUTROPHILS ABSOLUTE AUTO 4.85 K/mm3 (1.96-9.15); NEUTROPHILS PERCENT AUTO 68 % (41-73); NRBC ABSOLUTE 0.00 K/mm3 (0.00-0.02); NRBC Auto 0.0 /100 WBC (0.0-0.2); Platelet Count 278 K/mm3 (150-400); RDW Coefficient Variation 13.4 % (11.7-14.2); RDW Standard Deviation 46.9 fL (35.1-46.3)
[2025-03-09 18:23] LABS: C-REACTIVE PROTEIN, EXT RANGE 14.3 mg/dL (0.000-0.300)
[2025-03-09 18:30] LABS: Alanine Aminotransfer (ALT/SGP 35.0 U/L (12-78); Albumin, Blood 2.3 g/dL (3.4-5.0); Albumin/Globulin Ratio 0.6 (0.8-1.8); Anion Gap 11.0 mmol/L (3-11); Aspartate Aminotrans (AST/SGOT 39.0 U/L (12-37); Bilirubin, Total 0.5 mg/dL (0.1-1.0); Blood Urea Nitrogen 12.0 mg/dL (8-24); CO2, Blood 24.0 mmol/L (21-32); Calcium, Blood 8.3 mg/dL (8.5-10.1); Chloride, Blood 106.0 mmol/L (98-108); Creatinine, Blood 1.18 mg/dL (0.60-1.20); Globulin, Blood 4.1 g/dL (2.2-4.0); Glucose, Blood 136.0 mg/dL (70-99); Potassium, Blood 3.7 mmol/L (3.5-5.5); Sodium, Blood 137.0 mmol/L (136-145); Total Protein, Blood 6.4 g/dL (6.4-8.2)
== END ==
LOC: LAB 15:37 → LAB SHORT 15:37
PROVIDERS: Internal Medicine Infectious Disease
DX: T84.54XA Infection and inflammatory reaction due to internal left knee prosthesis, initial encounter (principal); I50.9 Heart failure, unspecified; Z79.899 Other long term (current) drug therapy
CPT/HCPCS: 80053; 82550; 85025; 86140

== ENCOUNTER 2025-03-16 18:01 | Inpatient (IN) | payer OTHER ==
[~2025-03-16] VITALS: Ht 167.6 cm; Wt 99.7 kg
[~2025-03-16 18:01] MED LIST changes: -DAPTOMYCIN500 M3 IV; -MECL12.5 PO; -MIDO5 PO
[2025-03-16] MEDS ORDERED: Ipratropium/Albuterol SulF 2.5-0.5MG/3 ML Amp INH ONE (18:30)
[2025-03-16] MEDS ORDERED: NS 250 ML IV SCH (18:30)
[2025-03-16 18:40] LABS: BASOPHILS ABSOLUTE AUTO 0.08 K/mm3 (0.00-0.23); BASOPHILS PERCENT AUTO 1 % (0-2); EOSINOPHILS ABSOLUTE AUTO 0.07 K/mm3 (0.00-0.68); EOSINOPHILS PERCENT AUTO 1 % (0-6); Hematocrit 33.9 % (37.0-53.0); Hemoglobin 10.6 g/dL (13.5-17.5); IMMATURE GRAN ABSOLUTE AUTO 0.11 K/mm3 (0.00-0.10); IMMATURE GRAN PERCENT AUTO 1 % (0-1); LYMPHOCYTES ABSOLUTE AUTO 0.96 K/mm3 (0.84-5.20); LYMPHOCYTES PERCENT AUTO 9 % (21-46); MONOCYTES ABSOLUTE AUTO 0.62 K/mm3 (0.16-1.47); MONOCYTES PERCENT AUTO 6 % (4-13); Mean Corpuscular HGB Conc 31.3 g/dL (31.5-36.5); Mean Corpuscular Volume 93 fL (80-100); NEUTROPHILS ABSOLUTE AUTO 8.61 K/mm3 (1.96-9.15); NEUTROPHILS PERCENT AUTO 82 % (41-73); NRBC ABSOLUTE 0.00 K/mm3 (0.00-0.02); NRBC Auto 0.0 /100 WBC (0.0-0.2); Platelet Count 226 K/mm3 (150-400); RDW Coefficient Variation 13.9 % (11.7-14.2); RDW Standard Deviation 47.3 fL (35.1-46.3)
[2025-03-16 18:50] LABS: pH Blood Venous 7.39 (7.34-7.37)
[2025-03-16] MEDS ORDERED: CefTRIAXone Sodium 1,000 MG in NS 50 ML IV ONE (19:00)
[2025-03-16 19:01] LABS: Alanine Aminotransfer (ALT/SGP 16.0 U/L (12-78); Albumin, Blood 2.4 g/dL (3.4-5.0); Albumin/Globulin Ratio 0.6 (0.8-1.8); Anion Gap 12.0 mmol/L (3-11); Aspartate Aminotrans (AST/SGOT 19.0 U/L (12-37); Bilirubin, Total 0.4 mg/dL (0.1-1.0); Blood Urea Nitrogen 14.0 mg/dL (8-24); CO2, Blood 22.0 mmol/L (21-32); Calcium, Blood 8.5 mg/dL (8.5-10.1); Chloride, Blood 109.0 mmol/L (98-108); Creatinine, Blood 1.31 mg/dL (0.60-1.20); Globulin, Blood 4.2 g/dL (2.2-4.0); Glucose, Blood 136.0 mg/dL (70-99); Magnesium, Blood 1.8 mg/dL (1.6-2.4); Potassium, Blood 3.6 mmol/L (3.5-5.5); Sodium, Blood 139.0 mmol/L (136-145); Total Protein, Blood 6.6 g/dL (6.4-8.2)
[2025-03-16] MEDS ORDERED: NS 500 ML IV SCH (19:25)
[2025-03-16] MEDS ORDERED: NS 750 ML IV SCH (19:30)
[2025-03-16 20:38] LABS: C-REACTIVE PROTEIN, EXT RANGE 17.9 mg/dL (0.000-0.300)
[2025-03-16] MEDS ORDERED: NS 1,000 ML IV SCH (21:10)
[2025-03-16] MEDS ORDERED: Ondansetron HCl 2 MG / ML 2ML Vial IV PRN (21:10)
[2025-03-16] MEDS ORDERED: OxyCODONE 5 mg/Acetamin 325 mg TABLET PO PRN (21:15)
[2025-03-16] MEDS ORDERED: FLU VACC TS2025(65UP)/MF59C/PF 45 MCG/0.5 ML SYRINGE IM SCH (21:25)
[2025-03-16] MEDS ORDERED: Cefepime HCl 2,000 MG in NS 100 ML IV SCH (22:00)
[2025-03-16] MEDS ORDERED: DAPTOMYCIN500 M3 IV (23:26)
[2025-03-17] VITALS (7 sets, daily range): BP systolic 95–126; BP diastolic 50–61
[2025-03-17] MEDS ORDERED: TORSE20 PO (00:46)
[2025-03-17] MEDS ORDERED: MECL12.5 PO (00:59)
[2025-03-17] MEDS ORDERED: MIDO5 PO (01:00)
[2025-03-17 03:40] LABS: BASOPHILS ABSOLUTE AUTO 0.06 K/mm3 (0.00-0.23); BASOPHILS PERCENT AUTO 1 % (0-2); EOSINOPHILS ABSOLUTE AUTO 0.25 K/mm3 (0.00-0.68); EOSINOPHILS PERCENT AUTO 3 % (0-6); Hematocrit 29.7 % (37.0-53.0); Hemoglobin 9.6 g/dL (13.5-17.5); IMMATURE GRAN ABSOLUTE AUTO 0.06 K/mm3 (0.00-0.10); IMMATURE GRAN PERCENT AUTO 1 % (0-1); LYMPHOCYTES ABSOLUTE AUTO 1.39 K/mm3 (0.84-5.20); LYMPHOCYTES PERCENT AUTO 16 % (21-46); MONOCYTES ABSOLUTE AUTO 0.61 K/mm3 (0.16-1.47); MONOCYTES PERCENT AUTO 7 % (4-13); Mean Corpuscular HGB Conc 32.3 g/dL (31.5-36.5); Mean Corpuscular Volume 93 fL (80-100); NEUTROPHILS ABSOLUTE AUTO 6.37 K/mm3 (1.96-9.15); NEUTROPHILS PERCENT AUTO 73 % (41-73); NRBC ABSOLUTE 0.00 K/mm3 (0.00-0.02); NRBC Auto 0.0 /100 WBC (0.0-0.2); Platelet Count 196 K/mm3 (150-400); RDW Coefficient Variation 14.0 % (11.7-14.2); RDW Standard Deviation 47.7 fL (35.1-46.3)
[2025-03-17 04:03] LABS: Alanine Aminotransfer (ALT/SGP 13.0 U/L (12-78); Albumin, Blood 2.1 g/dL (3.4-5.0); Albumin/Globulin Ratio 0.6 (0.8-1.8); Anion Gap 9.0 mmol/L (3-11); Aspartate Aminotrans (AST/SGOT 16.0 U/L (12-37); Bilirubin, Total 0.3 mg/dL (0.1-1.0); Blood Urea Nitrogen 14.0 mg/dL (8-24); CO2, Blood 25.0 mmol/L (21-32); Calcium, Blood 8.2 mg/dL (8.5-10.1); Chloride, Blood 110.0 mmol/L (98-108); Creatinine, Blood 1.31 mg/dL (0.60-1.20); Globulin, Blood 3.8 g/dL (2.2-4.0); Glucose, Blood 115.0 mg/dL (70-99); Magnesium, Blood 1.9 mg/dL (1.6-2.4); Potassium, Blood 3.1 mmol/L (3.5-5.5); Sodium, Blood 141.0 mmol/L (136-145); Total Protein, Blood 5.9 g/dL (6.4-8.2)
--- NOTE | 2025-03-17 06:13 | NUR ---
SHIFT SUMMARY: PT A&OX4 CALM AND COOPERTIVE. SOFT BPS. PT REPORTS THAT IS HIS BASELINE AND TAKES MIDODRINE TID. MAINTAINING >92% ON 4L NC. ENDORSES EXERTIONAL SOB EVEN WHEN MOVING IN BED. WICKING SYSTM IN PLACE D/T INCONTINENCE. ADEQUATE URINE OUTPUT. PT REMAINED BEDREST D/T SOB. INFUSING NS @125 ML/HR. DAUGHTER AT BEDSIDE UPON ADMISSION. DAUGHTER IS POA. MED REC COMPLETED AND COPY OF MED LIST IN CHART. PULMONARY CONSULT ORDERED AND LEFT MESSAGE TO ANSWERING SERVICE. DR. LONG IS TO CONSULT. BED IS LOW AND LOCKED AND CALL LIGHT WITHIN REACH.
[2025-03-17] MEDS ORDERED: Potassium Chl 20MEQ/Water100ML 100 ML IV SCH (06:30)
[2025-03-17] MEDS ORDERED: Lactobacil 2-S.Thermo-Bifido 1 1 Cap PO SCH (09:00)
[2025-03-17] MEDS ORDERED: Vancomycin (Pharmacy Consult) IV SCH (12:00)
[2025-03-17] MEDS ORDERED: D5W-LR 1,000 ML IV SCH (12:00)
[2025-03-17 13:49] LABS: Acinetobacter baumannii DNA Not Detected copy/mL (NOT DETECT); Chlamydia pneumonia Not Detected (NOT DETECT); Enterobacter cloacae DNA Not Detected copy/mL (NOT DETECT); Escherichia coli DNA Not Detected copy/mL (NOT DETECT); Haemophilus influenzae DNA Not Detected copy/mL (NOT DETECT); Klebsiella aerogenes DNA Not Detected copy/mL (NOT DETECT); Klebsiella oxytoca DNA Not Detected copy/mL (NOT DETECT); Klebsiella pneumoniae DNA Not Detected copy/mL (NOT DETECT); Moraxella catarrhalis DNA Not Detected copy/mL (NOT DETECT); Proteus sp DNA Not Detected copy/mL (NOT DETECT); Pseudomonas aeruginosa DNA Not Detected copy/mL (NOT DETECT); Serratia marcescens DNA Not Detected copy/mL (NOT DETECT); Staphylococcus aureus DNA Not Detected copy/mL (NOT DETECT); Streptococcus agalactiae DNA Not Detected copy/mL (NOT DETECT); Streptococcus pneumoniae DNA Not Detected copy/mL (NOT DETECT); Streptococcus pyogenes DNA Not Detected copy/mL (NOT DETECT)
[2025-03-17 13:50] LABS: Human Coronavirus RNA Not Detected (NOT DETECT); Human Metapneumovirus RNA Not Detected (NOT DETECT); Influenza virus A RNA Not Detected (NOT DETECT); Influenza virus B RNA Not Detected (NOT DETECT); Respiratory syncytial Vir RNA Not Detected (NOT DETECT); Rhinovirus+Enterovirus RNA Not Detected (NOT DETECT)
[2025-03-17] MEDS ORDERED: DAPTOmycin 750 MG in NS 50 ML IV SCH (15:00)
--- NOTE | 2025-03-17 15:44 | NUR ---
Pt. is awake in bed when he welcomes my visit. Pt. is pleasant. Pts. daughter is at bedside. Facilitated an introduction as this access clinician knows other members of the Pts. family from the community. Rapport is established. Pt. displays evidence of being engaged and alert. Considered matters of stephanie and belief. Prayed with the Pt. and his daughter. Pt. verbalized gratitude fo rthe spiritual care visit.
[2025-03-17] MEDS ORDERED: Piperacillin/Tazobactam Sod 3.375 GM in NS 100 ML IV SCH (16:00)
[2025-03-17] MEDS ORDERED: Torsemide 20 MG TAB PO SCH (18:00)
--- NOTE | 2025-03-17 18:53 | NUR ---
SHIFT SUMMARY PT IS A&0 X 4, COOPERATIVE WITH CARE, AND EXPRESSES NEEDS. HE HAS REQUIRED TITRATION FROM 2-5L O2 NC. NEEDS INCREASE WITH ANY ACTIVIY HE EASILY DESATS. BEDREST MAINTAINED FOR WEAKNESS AND OXYGEN DEMANDS. PT HAD A VERY SHORT RUN OF SVT AT AROUND 1400, OTHERWISE HAS BEEN IN SR 80s. BPs HAVE BEEN STABLE, MAP >65. PT HAS A PUREWICK IN PLACE W/ CONTINUOUS LOW SUCTION. PT HAD A CTPE AND VENOUS DUPLEX COMPLETED THIS SHIFT, DR. HERNANDEZ CALLED ABOUT DUPLEX. PICC LINE RECORDS OBTAINED FROM [facility], WHEN INSERTED IT HAD 2CM OUT AND NOW HAS 10. ASSESSED BY DIRECTOR TECHNICAL AND DETERMINED TO BE CONSIDERED A MIDLINE AFTER CONFIRMING W/ X RAY. CERTIFIED REGISTERED NURSE PRACTITIONER ROUNDED ON PT THIS AFTERNOON. [facility] UPDATED ON CARE. SEE NOTES FOR UPDATES.
[2025-03-18] VITALS (53 sets, daily range): BP systolic 73–117; BP diastolic 36–92
[2025-03-18 04:04] LABS: BASOPHILS ABSOLUTE AUTO 0.04 K/mm3 (0.00-0.23); BASOPHILS PERCENT AUTO 0 % (0-2); EOSINOPHILS ABSOLUTE AUTO 0.84 K/mm3 (0.00-0.68); EOSINOPHILS PERCENT AUTO 9 % (0-6); Hematocrit 28.9 % (37.0-53.0); Hemoglobin 8.8 g/dL (13.5-17.5); IMMATURE GRAN ABSOLUTE AUTO 0.07 K/mm3 (0.00-0.10); IMMATURE GRAN PERCENT AUTO 1 % (0-1); LYMPHOCYTES ABSOLUTE AUTO 1.34 K/mm3 (0.84-5.20); LYMPHOCYTES PERCENT AUTO 14 % (21-46); MONOCYTES ABSOLUTE AUTO 0.60 K/mm3 (0.16-1.47); MONOCYTES PERCENT AUTO 6 % (4-13); Mean Corpuscular HGB Conc 30.4 g/dL (31.5-36.5); Mean Corpuscular Volume 94 fL (80-100); NEUTROPHILS ABSOLUTE AUTO 6.44 K/mm3 (1.96-9.15); NEUTROPHILS PERCENT AUTO 69 % (41-73); NRBC ABSOLUTE 0.00 K/mm3 (0.00-0.02); NRBC Auto 0.0 /100 WBC (0.0-0.2); Platelet Count 180 K/mm3 (150-400); RDW Coefficient Variation 14.4 % (11.7-14.2); RDW Standard Deviation 48.9 fL (35.1-46.3)
[2025-03-18 04:29] LABS: Albumin, Blood 1.8 g/dL (3.4-5.0); Anion Gap 9 mmol/L (3-11); Blood Urea Nitrogen 14 mg/dL (8-24); CO2, Blood 24 mmol/L (21-32); Calcium, Blood 7.8 mg/dL (8.5-10.1); Chloride, Blood 108 mmol/L (98-108); Creatinine, Blood 1.37 mg/dL (0.60-1.20); Glucose, Blood 108 mg/dL (70-99); Phosphorus, Blood 2.8 mg/dL (2.5-4.9); Potassium, Blood 3.7 mmol/L (3.5-5.5); Sodium, Blood 137 mmol/L (136-145)
--- NOTE | 2025-03-18 04:46 | NUR ---
ASSUMED CARE OF PT AT 1900. PT AXOX3 AND ABLE TO USE CALL LIGHT APPROPRIATELY. PT WENT BETWEEN 3L-5L NC THROUGHOUT THE NIGHT TO MAINTAIN O2>94%. MALEWICK ON AND IN PLACE. BP HAS BEEN SOFT THROUGHOUT THE NIGHT BUT MAP MAINTAINED >65. ALL OTHER VSS. PT RECIEVED A DOSE OF PAIN MEDICATION FOR LEFT LEG PAIN. BED IN LOWEST POSITION AND CALL LIGHT WITHIN REACH.
[2025-03-18] MEDS ORDERED: Ampicillin Sod/Sulbactam Sod 3 GM in NS 100 ML IV SCH (12:00)
--- NOTE | 2025-03-18 13:13 | NUR ---
HYPOTENSION THIS RN WAS TAKING Q4 VITALS ON THIS PT AND GOT A BP OF 89/45 (58) AT 1203. MANUAL BLOOD PRESSURE TAKEN TO CONFIRM AND WAS 87/45. AT 1217, THIS RN GAVE MIDODRINE PER ORDERS AND PUT PT INTO SUPINE POSITION. PT'S MOST RECENT BLOOD PRESSURE WAS AROUND 10 MINUTES AGO AND WAS 96/58 (71). PT DENIED BEING SYMPTOMATIC. PT REMAINS IN SUPINE POSITION AT THIS TIME AND IS GETTING BP CHECKS Q15 MIN TO TRACK TREND. CALL PLACED TO DR. THOMASON AFTER MOST RECENT BP CHECK TO MAKE HER AWARE OF THE SITUATION. DISCUSSED THAT PT RECIEVED COZAAR, TORSEMIDE, AND OXYCODONE THIS MORNING. EDGARDO DC'd PER DR. THOMASON.
[2025-03-18] MEDS ORDERED: NS 1,000 ML IV ONE ×2 (14:32→15:10)
--- NOTE | 2025-03-18 14:58 | NUR ---
CONTINUED HYPOTENSION SEE PREVIOUS NOTE PT CONTINUES TO HAVE HYPOTENSION. DR. THOMASON NOTIFIED AND AT PT'S BEDSIDE TO TALK WITH FAMILY. 500 mL BOLUS INFUSING PER ORDERS. PROVIDER WILL REMAIN AT BEDSIDE FOR NOW TO MONITOR HOW PT RESPONDS TO BOLUS. BPs NOW Q10 MINUTES. SEE NOTES FOR UPDATES
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
--- NOTE | 2025-03-18 19:30 | NUR ---
TRANSFER TO ICU SEE PREVIOUS NOTES WHILE GIVING BEDSIDE SHIFT REPORT, PT'S BP MAP WAS <60, CONFIRMED WITH MANUAL BP. PT REMAINS ASYMPTOMATIC. BD SPECIAL EDUCATION TEACHER KARINA NOTIFIED AND ORDERED ICU TRANSFER AND LEVOPHED GTT. REPORT GIVEN TO JOEL AND CARMEN IN ICU. PT TRANSFERRED FROM PCU 7 TO ICU 6 AT 1930, BELONGINGS WITH PT. PT'S DAUGHTER / POA CALLED AT 193 AND NOTIFIED OF TRANSFER TO ICU 6. NO FURTHER NOTES FROM THIS RN.
--- NOTE | 2025-03-18 22:27 | NUR ---
ASSUMED CARE PT TRASNFERED FROM PCU TO ICU-06. UPON ARRIVAL PT IS ALERT AND ORIENTED, MOVES ALL EXTREMETIES, PERRLA, NORMAL SPEECH, ABLE TO MAKE NEEDS KNOWN. PT IS ON 4L/NC AT THIS TIME WITH SPO2 >93% AND NO C/O OF SOB. MAP IS 66 AT THIS TIME AND HR IN THE 70'S, ADEQUATE PERFUSION AND NO C/O OF CHEST PAIN OR PRESSURE. ABDM IS SOFT AND NON TENDER UPON PALPATION. MALE PUREWICK IN PLACE, PATENT AND CONNECTED TO CONTINUOUS SUCTION. BLE EDEMA NOTED. ANY SIGNIFICANT SKIN ISSUES HAVE BEEN PHOTOGRAPHED AND PLACED IN CHART. PIV FLUSH BUT DO NOT DRAW BACK BLOOD, WILL PLACE NEW PIV IN ORDER TO BEGIN LEVOPHED GTT. CALL LIGHT WITHIN REACH, PT STATES NO NEEDS AT THIS TIME.
[2025-03-19] VITALS (58 sets, daily range): BP systolic 90–132; BP diastolic 39–91
[2025-03-19 03:38] LABS: BASOPHILS ABSOLUTE AUTO 0.06 K/mm3 (0.00-0.23); BASOPHILS PERCENT AUTO 1 % (0-2); EOSINOPHILS ABSOLUTE AUTO 0.83 K/mm3 (0.00-0.68); EOSINOPHILS PERCENT AUTO 8 % (0-6); Hematocrit 30.4 % (37.0-53.0); Hemoglobin 9.6 g/dL (13.5-17.5); IMMATURE GRAN ABSOLUTE AUTO 0.09 K/mm3 (0.00-0.10); IMMATURE GRAN PERCENT AUTO 1 % (0-1); LYMPHOCYTES ABSOLUTE AUTO 1.55 K/mm3 (0.84-5.20); LYMPHOCYTES PERCENT AUTO 15 % (21-46); MONOCYTES ABSOLUTE AUTO 0.78 K/mm3 (0.16-1.47); MONOCYTES PERCENT AUTO 8 % (4-13); Mean Corpuscular HGB Conc 31.6 g/dL (31.5-36.5); Mean Corpuscular Volume 91 fL (80-100); NEUTROPHILS ABSOLUTE AUTO 7.00 K/mm3 (1.96-9.15); NEUTROPHILS PERCENT AUTO 68 % (41-73); NRBC ABSOLUTE 0.00 K/mm3 (0.00-0.02); NRBC Auto 0.0 /100 WBC (0.0-0.2); Platelet Count 208 K/mm3 (150-400); RDW Coefficient Variation 14.2 % (11.7-14.2); RDW Standard Deviation 47.8 fL (35.1-46.3)
[2025-03-19 03:53] LABS: Albumin, Blood 1.8 g/dL (3.4-5.0); Anion Gap 7 mmol/L (3-11); Blood Urea Nitrogen 18 mg/dL (8-24); CO2, Blood 27 mmol/L (21-32); Calcium, Blood 7.9 mg/dL (8.5-10.1); Chloride, Blood 108 mmol/L (98-108); Creatinine, Blood 1.13 mg/dL (0.60-1.20); Glucose, Blood 134 mg/dL (70-99); Magnesium, Blood 1.8 mg/dL (1.6-2.4); Phosphorus, Blood 2.5 mg/dL (2.5-4.9); Potassium, Blood 3.4 mmol/L (3.5-5.5); Sodium, Blood 139 mmol/L (136-145)
--- NOTE | 2025-03-19 07:06 | NUR ---
SHIFT SUMMARY PT REMAINS ALERT AND ORIENTED, ABLE TO MAKE NEEDS KNOWN, AND FOLLOWS COMMANDS. PT ON 4-5L/NC OVERNIGHT TO KEEP SPO2 >90%, RR IN THE 20'S-30'S. MAP >60 T/O THE NIGHT ON 2MCG LEVOPHED AND PRN MIDODRINE. HR IN THE 60'S NSR. PUREICK IN PLACE, AND CONNECTED TO SUCTION. LEVOPHED ON SB SINCE 529 TO ASSESS FOR BP STABILITY, PRN MIDODRINE GIVEN TO ADJUNCT BP SUPPORT, PT HAS REMAINED STABLE WITH MAP IN THE 70'S. PT HAS VARIOUS SKIN ISSUES SEE NOTES AND PHOTOS IN CHART. POTASSIUM LABS CAME BACK LOW, PROVIDER UPDATED AND ORDERED POTASSIUM REPLACMEENT TO BE GIVEN BY DAYSHIFT. FAMILY UPDATED ON PT. CALL LIGHT WITHIN REACH, NO IMMEDIATE CONCERENS AT THIS TIME. WILL REPORT TO ONCOMING NURSE.
--- NOTE | 2025-03-19 09:51 | NUR ---
ASSUMED CARE AT 0700 PT LAYING IN BED WATCHING TV. PT IS ORIENTED TO SELF, PLACE, AND PERSON BUT NOT TIME OR SITUATION; HE IS PLEASENT AND CALLS APPROPRIATLY. SPO2 >90% ON 5L NC; RR LOW 20'S; NO C/O DYSPNEA. AFEBRILE. NSR WITH RATE 60-70'S. SBP 90-100; MAP >60; LEVOPHED CONT TO BE OFF. POOR APPITITE. PUREWICK IN PLACE WITH ADAQUATE OUTPUT. DAUGHTER AT BEDSIDE AND APPROPRIATE WITH STAFF AND PT. SEE SHIFT ASSESSMENT FOR FULL ASSESSMENT.
[2025-03-19] MEDS ORDERED: Vancomycin (Pharmacy Consult) IV SCH (11:35)
[2025-03-19] MEDS ORDERED: Piperacillin/Tazobactam Sod 3.375 GM in NS 100 ML IV SCH (11:40)
--- NOTE | 2025-03-19 18:32 | NUR ---
END OF SHIFT SUMMARY PT HAS BEEN ABLE TO STAY OFF OF LEVOPHED ALL DAY. HE IS A/O X4 AND ABLE TO MAKE HIS NEEDS KNOWN; WORKED WITH PT TODAY AND WAS UP TO A CHAIR FOR A FEW HOURS; FAMILY PRESENT AND APPROPRIATE WITH PT AND STAFF. O2 REQUIREMENTS LABILE TODAY, CURRENTLY ON 3L OXYMASK. AFEBRILE. HR 60-80'S. SBP 100-120 WITH MAP >60. LARGE BM TODAY; LITTLE APPETITE THIS SHIFT. PUREWICK IN PLACE; ADAQUATE URINE OUTPUT. SALINE LOCKED. WILL REPORT TO PM RN WHEN AVAILABLE.
--- NOTE | 2025-03-19 22:17 | NUR ---
ASSUMPTION OF CARE NOTE: ASSUMED CARE OF PT AT 1900 PT IS RELAXING IN BED AND A&O 3-4 ABLE TO ANSWER QUESTIONS AND OBEYS COMMANDS. SPO2 >92% ON 4L OXY MASK. SBP'S 110'S AND HR IN THE 80'. PT HAS COMPLAINTS OF UPSET STOMACH AND WAS ABLE TO GET TO BSC AND HAVE A BM. PUREWICK PATENT AND IN PLACE TO WALL SUCTION. PATENT PIV TO LH AND LFA.PT HAS CALL LIGHT IN REACH AND BED LOW AND LOCKED FOR SAFETY.
[2025-03-20] VITALS (45 sets, daily range): BP systolic 99–144; BP diastolic 51–95
[2025-03-20 04:55] LABS: Albumin, Blood 1.8 g/dL (3.4-5.0); Anion Gap 7 mmol/L (3-11); Blood Urea Nitrogen 16 mg/dL (8-24); CO2, Blood 27 mmol/L (21-32); Calcium, Blood 8.1 mg/dL (8.5-10.1); Chloride, Blood 110 mmol/L (98-108); Creatinine, Blood 1.00 mg/dL (0.60-1.20); Glucose, Blood 128 mg/dL (70-99); Phosphorus, Blood 2.1 mg/dL (2.5-4.9); Potassium, Blood 4.0 mmol/L (3.5-5.5); Sodium, Blood 140 mmol/L (136-145)
[2025-03-20] MEDS ORDERED: Albumin (Human) 25gm/100ml 100 ML IV ONE (05:15)
--- NOTE | 2025-03-20 05:26 | NUR ---
SHIFT SUMM: ONCE PT RECIEVED MELATONIN HE WAS ABLE TO GET SOME REST THIS SHIFT. PT WAS MEDICATED FOR PAIN PER EMAR AND WAS ABLE TO HAVE A BM ON THE BSC THIS SHIFT. PT A&OX3-4 AND OBEYS COMMANDS.SPO2 CURRENTLY >96% ON 6L OXY MASK. SBP'S 100-110'S WITH HR IN THE 70-80'S MAINTAING GOAL MAP ABOVE 60.[employer] PATENT. PIV'S PATENT.PT HAS CALL LIGHT IN REACH AND BED LOW AND LOCKED FOR SAFETY.
[2025-03-20] MEDS ORDERED: Sodium Phosphate 20 MM in Dextrose 5% 500 ML IV ONE (06:00)
[2025-03-20] MEDS ORDERED: CALCIUM GLUC IN NACL, ISO-OSM 50 ML IV ONE (06:35)
[2025-03-20] MEDS ORDERED: Darbepoetin (Pharmacy Consult) SC SCH (06:55)
--- NOTE | 2025-03-20 18:03 | NUR ---
SHIFT SUMMARY PT ALERT, ORIENTED, AND COOPERATIVE W/ CARE. USING CALL LIGHT APPROPRIATELY. DAUGHTER, CARLTON, AT BEDSIDE DURING DAY. PT HARD OF HEARING. USES DENTURES FOR MEALS-AT BEDSIDE. PT TAKING PO MEDS W/OUT DIFFICULTY. PT ON 4L VIA NC AT REST, OXYGEN DEMANDS INCREASE SIGNIFICANTLY W/ EXERTION. PT UP TO BSC FOR BM AND PT DESATS TO 70%, OXYMASK PLACED OVER NC AND PT SLOW TO RECOVER. PT HAS WEAK COUGH. PT NSR VIA CONTINUOUS MONITOR, BP STABLE. PT MIDODRINE INCREASED TO 4 TIMES DAILY W/ GOOD EFFECT. PT AFEBRILE DURING SHIFT. WICKING SYSTEM IN PLACE W/ GOOD OUTPUT. PT HAS ONE LARGE, LIQUID BM DURING SHIFT. NO NEW SKIN ISSUES OBSERVED. PT OFFERED PAIN MEDICATIONS MULTIPLE TIMES T/O DAY AND DECLINES. CALL LIGHT W/ IN REACH. PLAN OF CARE ONGOING
[2025-03-21] VITALS (22 sets, daily range): BP systolic 104–143; BP diastolic 51–87
[2025-03-21 03:23] LABS: BASOPHILS ABSOLUTE AUTO 0.06 K/mm3 (0.00-0.23); BASOPHILS PERCENT AUTO 1 % (0-2); EOSINOPHILS ABSOLUTE AUTO 0.52 K/mm3 (0.00-0.68); EOSINOPHILS PERCENT AUTO 5 % (0-6); Hematocrit 31.8 % (37.0-53.0); Hemoglobin 9.8 g/dL (13.5-17.5); IMMATURE GRAN ABSOLUTE AUTO 0.08 K/mm3 (0.00-0.10); IMMATURE GRAN PERCENT AUTO 1 % (0-1); LYMPHOCYTES ABSOLUTE AUTO 1.37 K/mm3 (0.84-5.20); LYMPHOCYTES PERCENT AUTO 14 % (21-46); MONOCYTES ABSOLUTE AUTO 0.78 K/mm3 (0.16-1.47); MONOCYTES PERCENT AUTO 8 % (4-13); Mean Corpuscular HGB Conc 30.8 g/dL (31.5-36.5); Mean Corpuscular Volume 92 fL (80-100); NEUTROPHILS ABSOLUTE AUTO 6.92 K/mm3 (1.96-9.15); NEUTROPHILS PERCENT AUTO 71 % (41-73); NRBC ABSOLUTE 0.00 K/mm3 (0.00-0.02); NRBC Auto 0.0 /100 WBC (0.0-0.2); Platelet Count 217 K/mm3 (150-400); RDW Coefficient Variation 14.0 % (11.7-14.2); RDW Standard Deviation 47.5 fL (35.1-46.3)
[2025-03-21 03:42] LABS: Albumin, Blood 2.1 g/dL (3.4-5.0); Anion Gap 6 mmol/L (3-11); Blood Urea Nitrogen 14 mg/dL (8-24); CO2, Blood 28 mmol/L (21-32); Calcium, Blood 8.5 mg/dL (8.5-10.1); Chloride, Blood 111 mmol/L (98-108); Creatinine, Blood 0.87 mg/dL (0.60-1.20); Glucose, Blood 134 mg/dL (70-99); Magnesium, Blood 2.0 mg/dL (1.6-2.4); Phosphorus, Blood 2.4 mg/dL (2.5-4.9); Potassium, Blood 3.7 mmol/L (3.5-5.5); Sodium, Blood 141 mmol/L (136-145)
[2025-03-21] MEDS ORDERED: Sodium Phosphate 20 MM in Dextrose 5% 500 ML IV ONE (06:00)
--- NOTE | 2025-03-21 06:16 | NUR ---
SHIFT SUMMARY: NO SIGNIFCANT OVERNIGHT CHANGES. PTS VITALS ARE STABLE, NO DROPS IN BP. HE REMAINS ON OXYGEN VIA NASAL CANNULA AND DOES STILL DESATURATE DURING EXERTION REQUIRING AN INCREASE IN O2 FOR RECOVERY. NO COMPLAINTS OF ACUTE PAIN. COUGH IS WEAK, ENCOURAGING HIM TO USE FLUTTER VALVE.
[2025-03-21] MEDS ORDERED: Vancomycin (Pharmacy Consult) IV SCH (09:30)
[2025-03-21 11:25] LABS: Vancomycin, Trough 13.4 ug/mL (5.0-10.0)
--- NOTE | 2025-03-21 16:58 | NUR ---
PATIENT TRANSFERED TO ROOM VIA WHEELCHAIR AND ICU STAFF. PATIENT ABLE TO MOVE TO BED WITH WALKER AND ASSISTANCE. PATIENT ALERT AND ORIENTED. CALL LIGHT GIVEN AND PATIENT REASSURED HE KNOWS HOW TO CALL FOR ASSISTANCE. PURWICK SUCTION PLACED BACK ON PATIENT. STERI STRIPS ON LEFT KNEE LIFTED ON EDGES. PATIENT BED IN LOW POSITION AND ALL QUESTIONS ANSWERED.
--- NOTE | 2025-03-21 17:11 | NUR ---
TRANSFER PT TRANSFERED TO [place] [id number]. HE IS A/O X4 AND ABLE TO MAKE HIS NEEDS KNOWN; DAUGHTER AT BEDSIDE AND APPROPRIATE WITH PT AND STAFF. SPO2 >90% ON 5L NC AND NEEDED TO BE TITRATED UP TO 9L WITH EXERTION. NSR WITH RATE 80'S. BP STABLE. PUREWICK IN PLACE WITH ADAQUATE OUTPUT. ALL PERSONAL BELONGINGS SENT WITH PT.
[2025-03-21] MEDS ORDERED: NS 250 ML IV PRN (20:00)
[2025-03-22 03:18] VITALS: BP 125/62
[2025-03-22 04:40] LABS: BASOPHILS ABSOLUTE AUTO 0.06 K/mm3 (0.00-0.23); BASOPHILS PERCENT AUTO 1 % (0-2); EOSINOPHILS ABSOLUTE AUTO 0.83 K/mm3 (0.00-0.68); EOSINOPHILS PERCENT AUTO 10 % (0-6); Hematocrit 30.9 % (37.0-53.0); Hemoglobin 9.3 g/dL (13.5-17.5); IMMATURE GRAN ABSOLUTE AUTO 0.09 K/mm3 (0.00-0.10); IMMATURE GRAN PERCENT AUTO 1 % (0-1); LYMPHOCYTES ABSOLUTE AUTO 1.82 K/mm3 (0.84-5.20); LYMPHOCYTES PERCENT AUTO 22 % (21-46); MONOCYTES ABSOLUTE AUTO 0.67 K/mm3 (0.16-1.47); MONOCYTES PERCENT AUTO 8 % (4-13); Mean Corpuscular HGB Conc 30.1 g/dL (31.5-36.5); Mean Corpuscular Volume 93 fL (80-100); NEUTROPHILS ABSOLUTE AUTO 4.82 K/mm3 (1.96-9.15); NEUTROPHILS PERCENT AUTO 58 % (41-73); NRBC ABSOLUTE 0.00 K/mm3 (0.00-0.02); NRBC Auto 0.0 /100 WBC (0.0-0.2); Platelet Count 222 K/mm3 (150-400); RDW Coefficient Variation 14.1 % (11.7-14.2); RDW Standard Deviation 48.1 fL (35.1-46.3)
[2025-03-22 04:59] LABS: Albumin, Blood 1.9 g/dL (3.4-5.0); Anion Gap 8 mmol/L (3-11); Blood Urea Nitrogen 13 mg/dL (8-24); CO2, Blood 24 mmol/L (21-32); Calcium, Blood 8.2 mg/dL (8.5-10.1); Chloride, Blood 110 mmol/L (98-108); Creatinine, Blood 0.91 mg/dL (0.60-1.20); Glucose, Blood 100 mg/dL (70-99); Magnesium, Blood 2.1 mg/dL (1.6-2.4); Phosphorus, Blood 3.3 mg/dL (2.5-4.9); Potassium, Blood 3.9 mmol/L (3.5-5.5); Sodium, Blood 138 mmol/L (136-145)
--- NOTE | 2025-03-22 05:52 | NUR ---
SHIFT SUMMARY PATIENT ADMITTED FOR PNA. VSS. PATIENT HAS BEEN IRRITABLE OVERNIGHT WITH ANY INTERRUPTIONS. TOLERATING IV ABO. OXYGEN AT 4L PER MINUTE THROUGHOUT THE NIGHT. NO ACUTE OVERNIGHT EVENTS. BED RAILS UP X2. CALL LIGHT WITHIN REACH. BED IN LOWEST POSITION FOR SAFETY.
[2025-03-22] MEDS ORDERED: CALCIUM GLUC IN NACL, ISO-OSM 50 ML IV ONE (06:30)
[2025-03-22 07:46] VITALS: BP 130/60
[2025-03-22 12:33] VITALS: BP 118/53
[2025-03-22 15:33] VITALS: BP 145/69
[2025-03-22 19:36] VITALS: BP 118/55
[2025-03-23] VITALS (7 sets, daily range): BP systolic 113–139; BP diastolic 55–71
--- NOTE | 2025-03-23 05:08 | NUR ---
SHIFT SUMMARY PT A&Ox4. COOPERATIVE OF CARE. PT MEDICATED FOR PAIN IN LEFT HIP PER EMAR WITH GOOD EFFECT. CONTINUING IV ABX. PT REMAINS ON 4L OF HUMIDIFIED OXYGEN. MALE PURWICK IN PLACE. PT REQUESTED THAT HEAL PROTECTORS BE REMOVED DURING THE NIGHT. DECLINED MOST REPOSITIONING OFFERS. VSS. BED ALARM ON. BED IN LOWEST POSITION AND CALL LIGHT IN REACH.
[2025-03-23 07:13] LABS: BASOPHILS ABSOLUTE AUTO 0.07 K/mm3 (0.00-0.23); BASOPHILS PERCENT AUTO 1 % (0-2); EOSINOPHILS ABSOLUTE AUTO 0.84 K/mm3 (0.00-0.68); EOSINOPHILS PERCENT AUTO 11 % (0-6); Hematocrit 30.0 % (37.0-53.0); Hemoglobin 9.1 g/dL (13.5-17.5); IMMATURE GRAN ABSOLUTE AUTO 0.12 K/mm3 (0.00-0.10); IMMATURE GRAN PERCENT AUTO 2 % (0-1); LYMPHOCYTES ABSOLUTE AUTO 1.71 K/mm3 (0.84-5.20); LYMPHOCYTES PERCENT AUTO 21 % (21-46); MONOCYTES ABSOLUTE AUTO 0.69 K/mm3 (0.16-1.47); MONOCYTES PERCENT AUTO 9 % (4-13); Mean Corpuscular HGB Conc 30.3 g/dL (31.5-36.5); Mean Corpuscular Volume 92 fL (80-100); NEUTROPHILS ABSOLUTE AUTO 4.57 K/mm3 (1.96-9.15); NEUTROPHILS PERCENT AUTO 57 % (41-73); NRBC ABSOLUTE 0.00 K/mm3 (0.00-0.02); NRBC Auto 0.0 /100 WBC (0.0-0.2); Platelet Count 243 K/mm3 (150-400); RDW Coefficient Variation 14.0 % (11.7-14.2); RDW Standard Deviation 47.7 fL (35.1-46.3)
[2025-03-23 07:47] LABS: Albumin, Blood 2.0 g/dL (3.4-5.0); Anion Gap 5 mmol/L (3-11); Blood Urea Nitrogen 14 mg/dL (8-24); CO2, Blood 29 mmol/L (21-32); Calcium, Blood 8.2 mg/dL (8.5-10.1); Chloride, Blood 109 mmol/L (98-108); Creatinine, Blood 0.91 mg/dL (0.60-1.20); Glucose, Blood 106 mg/dL (70-99); Magnesium, Blood 2.1 mg/dL (1.6-2.4); Phosphorus, Blood 2.4 mg/dL (2.5-4.9); Potassium, Blood 3.8 mmol/L (3.5-5.5); Sodium, Blood 139 mmol/L (136-145)
[2025-03-23] MEDS ORDERED: Sodium Phosphate 10 MM in Dextrose 5% 250 ML IV STA (08:57)
--- NOTE | 2025-03-23 18:34 | NUR ---
SHIFT SUMMARY PT IS A/OX4. UP WITH 1 PERSON ASSIST WITH FWW. NO ACUTE CHANGES THROUGHOUT THIS SHIFT. ON 4-6L O2, O2 DEMANDS INCREASE WITH AMBULATION. ON TELE RUNNING NORMAL SINUS RYTHYM IN THE 60'S. CONTINUING IV ANTIBIOTICS. DAUGHTER AT BEDSIDE THROUGHOUT THIS SHIFT.
--- NOTE | 2025-03-23 18:42 | NUR ---
Pt. is awake in bed and welcomes my visit. Pt. is pleasant. Pt. is a man of stephanie so maters of stephanie and belief are considered at length. Pt. displayed evidence of being encouraged. 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 Prayed for and with the Pt. Pt. verbalized gratitude for the spiritual care visit.
[2025-03-24] VITALS (7 sets, daily range): BP systolic 114–140; BP diastolic 53–71
[2025-03-24 04:41] LABS: BASOPHILS ABSOLUTE AUTO 0.09 K/mm3 (0.00-0.23); BASOPHILS PERCENT AUTO 1 % (0-2); EOSINOPHILS ABSOLUTE AUTO 0.76 K/mm3 (0.00-0.68); EOSINOPHILS PERCENT AUTO 11 % (0-6); Hematocrit 30.5 % (37.0-53.0); Hemoglobin 9.3 g/dL (13.5-17.5); IMMATURE GRAN ABSOLUTE AUTO 0.11 K/mm3 (0.00-0.10); IMMATURE GRAN PERCENT AUTO 2 % (0-1); LYMPHOCYTES ABSOLUTE AUTO 1.96 K/mm3 (0.84-5.20); LYMPHOCYTES PERCENT AUTO 27 % (21-46); MONOCYTES ABSOLUTE AUTO 0.60 K/mm3 (0.16-1.47); MONOCYTES PERCENT AUTO 8 % (4-13); Mean Corpuscular HGB Conc 30.5 g/dL (31.5-36.5); Mean Corpuscular Volume 92 fL (80-100); NEUTROPHILS ABSOLUTE AUTO 3.73 K/mm3 (1.96-9.15); NEUTROPHILS PERCENT AUTO 52 % (41-73); NRBC ABSOLUTE 0.00 K/mm3 (0.00-0.02); NRBC Auto 0.0 /100 WBC (0.0-0.2); Platelet Count 242 K/mm3 (150-400); RDW Coefficient Variation 13.7 % (11.7-14.2); RDW Standard Deviation 46.8 fL (35.1-46.3)
--- NOTE | 2025-03-24 05:06 | NUR ---
PT WITH COMPLAINTS OF PAIN PER CHRONIC L/HIP PAIN MEDICATED PER JUL. PT VOIDING PER [employer]WICK SYSTEM. HEEL PROTECTORS OFFERED AND DENIED BY PT STATING HE'S AWARE WHEN HE NEEDS THEM. PT RECEIVING IV ZOSYN, 4L O2 NC, PT ON BEDREST.
[2025-03-24 05:13] LABS: Albumin, Blood 2.0 g/dL (3.4-5.0); Anion Gap 9 mmol/L (3-11); Blood Urea Nitrogen 13 mg/dL (8-24); CO2, Blood 26 mmol/L (21-32); Calcium, Blood 8.5 mg/dL (8.5-10.1); Chloride, Blood 107 mmol/L (98-108); Creatinine, Blood 0.85 mg/dL (0.60-1.20); Glucose, Blood 100 mg/dL (70-99); Magnesium, Blood 2.2 mg/dL (1.6-2.4); Phosphorus, Blood 2.8 mg/dL (2.5-4.9); Potassium, Blood 3.8 mmol/L (3.5-5.5); Sodium, Blood 138 mmol/L (136-145)
[2025-03-24] MEDS ORDERED: Piperacillin/Tazobactam Sod 3.375 GM in NS 100 ML IV SCH (08:00)
[2025-03-24 11:29] LABS: Vancomycin, Trough 17.8 ug/mL (5.0-10.0)
[2025-03-24] MEDS ORDERED: Furosemide 10 MG / ML 2ML Vial IV ONE (12:00)
--- NOTE | 2025-03-24 13:38 | NUR ---
SPOKE TO DR EVERETT- PT HAD A LFA 20G IV, DRESSING WAS CHANGED, IV FLUSHED WELL. PT STATED NO DISCOMFORT, NO VISIBLE SIGNS OF ISSUE. IV VANCO WAS STARTED. PT ALSO HAS A RIGHT AC IV THAT WAS LEAKY, THIS RN CHANGED THE DRESSING ON THAT IV IT FLUSHED WELL WITHOUT LEAKING, IV LASIX GIVEN, THIS RN LOOKED AT THE OTHER IV THAT THE VANCO WAS JUST STARTED IN AND IT WAS NATABLY SWOLLEN. INFUSION STOPPED, UNABLE TO ASPIRATE ANY OF THE FLUID. IV DC'D AND THE AREA WRAPPED WITH MIKA AND COBAN. NOTIFIED DR EVERETT OF THE INFILTRATION WITH VANCO, SPOKE TO PHARMACY THEY RECOMENDED WARM COMPRESS. PT C/O SOME MILD ITCHING OF THE AREA. VANCO INFUSION RESUMED IN THE RIGHT AC IV AT THIS TIME.
--- NOTE | 2025-03-24 20:02 | NUR ---
SHIFT SUMMARY- PT IV INFILTRATED RUNNING MD JIN AWARE. PT RIGHT AC IF IS POSITIONAL AND TOOK A LONG TIME TO RUN THE REMAINING VANCO. ADDITIONAL SUPPORT WAS REQUESTED TO PLACE AN ADDITIONAL LINE. ZOSYN DOSE WAS MISSED WAITING FOR ACCESS. SPOKE TO PHARMACY, 1800 DOSE HELD 1300 DOSE WAS GIVEN AT 1600. PASSED ON IN BEDSIDE REPORT TO JOHN R DONELL. PT MEDICATED FOR PAIN AT THE TIME OF REPORT. PT IN BED, CALL LIGHT IN REACH NO S&S OF DISTRESS NOTED AT THE TIME OF REPORT.
[2025-03-25 03:24] VITALS: BP 136/62
[2025-03-25 04:50] LABS: Hematocrit 31.1 % (37.0-53.0); Hemoglobin 9.7 g/dL (13.5-17.5)
[2025-03-25 05:16] LABS: Albumin, Blood 2.1 g/dL (3.4-5.0); Anion Gap 6 mmol/L (3-11); Blood Urea Nitrogen 16 mg/dL (8-24); CO2, Blood 31 mmol/L (21-32); Calcium, Blood 8.5 mg/dL (8.5-10.1); Chloride, Blood 104 mmol/L (98-108); Creatinine, Blood 0.89 mg/dL (0.60-1.20); Glucose, Blood 111 mg/dL (70-99); Magnesium, Blood 2.2 mg/dL (1.6-2.4); Phosphorus, Blood 2.5 mg/dL (2.5-4.9); Potassium, Blood 3.5 mmol/L (3.5-5.5); Sodium, Blood 137 mmol/L (136-145)
--- NOTE | 2025-03-25 06:18 | NUR ---
NOC SHIFT SUMMARY PT ON 5L O2 NC, PAIN MEDICATED X1, AND IV ABX INFUSED PER ORDER. NO ACUTE CHANGES THIS SHIFT. CALL LIGHT WITHIN REACH AND PT ABLE TO MAKE NEEDS KNOWN.
[2025-03-25 07:07] LABS: BASOPHILS ABSOLUTE AUTO 0.09 K/mm3 (0.00-0.23); BASOPHILS PERCENT AUTO 1 % (0-2); EOSINOPHILS ABSOLUTE AUTO 0.84 K/mm3 (0.00-0.68); EOSINOPHILS PERCENT AUTO 10 % (0-6); IMMATURE GRAN ABSOLUTE AUTO 0.12 K/mm3 (0.00-0.10); IMMATURE GRAN PERCENT AUTO 1 % (0-1); LYMPHOCYTES ABSOLUTE AUTO 1.77 K/mm3 (0.84-5.20); LYMPHOCYTES PERCENT AUTO 21 % (21-46); MONOCYTES ABSOLUTE AUTO 0.73 K/mm3 (0.16-1.47); MONOCYTES PERCENT AUTO 9 % (4-13); Mean Corpuscular HGB Conc 30.9 g/dL (31.5-36.5); Mean Corpuscular Volume 92 fL (80-100); NEUTROPHILS ABSOLUTE AUTO 4.95 K/mm3 (1.96-9.15); NEUTROPHILS PERCENT AUTO 58 % (41-73); NRBC ABSOLUTE 0.00 K/mm3 (0.00-0.02); NRBC Auto 0.0 /100 WBC (0.0-0.2); Platelet Count 290 K/mm3 (150-400); RDW Coefficient Variation 13.9 % (11.7-14.2); RDW Standard Deviation 46.6 fL (35.1-46.3)
[2025-03-25 07:54] VITALS: BP 135/58
[2025-03-25] MEDS ORDERED: Potassium Chloride 10 Meq Tablet SA PO SCH (09:00)
[2025-03-25 09:42] VITALS: BP 121/54
[2025-03-25] MEDS ORDERED: ACET500 PO (11:51)
[2025-03-25] MEDS ORDERED: GUAI600T33 PO (11:51)
[2025-03-25] MEDS ORDERED: AMOCLA875 PO (11:52)
[2025-03-25] MEDS ORDERED: MELATONIN5 M1 PO (11:52)
[2025-03-25] MEDS ORDERED: MINOCYCLINE HC100 M2 PO (11:53)
[2025-03-25 12:29] VITALS: BP 133/68
--- NOTE | 2025-03-25 14:36 | NUR ---
DISCHARGE NOTE- PT DISCHARGED TO [facility]. SPOKE TO [facility] RN TO PROVIDE REPORT. PT IV AND TELE DC'D PRIOR TO DISCHARGE. PT DAUGHTER WAS IRRITATED WITH STAFF FOR NOT HAVING A DISCHARGE PACKET. SHE WAS IRRITATED WITH THE DOCTORS FOR NOT COMMUNICATING WITH HER WELL SHE WANTED. SHE HAD SPOKEN TO DR EEVRETT WHO TOLD HER THE PLAN FOR CONTINUED IV ABX. THEN WHEN THIS RN CALLED AND SPOKE TO HIM ABOUT THE ABX NOT BEING COMPLETED IN TIME FOR DC PICKUP TIME, AND TO ASK IF THE PT NEEDED A PG OR PICC LINE, HE CHANGED TO PO FROM IV. DR EVERETT ASKED THIS RN TO COMMUNICATE THIS TO THE DAUGHTER, HOWEVER WHEN THIS RN WENT TO DO SO SHE WAS NO LONGER HERE. DAUGHTER IS AWARE OF THE PLAN NOW. A DISCHARGE PACKET WAS SENT TO THE FACILITY, THE DAUGHTER IS COMING BACK TO GET A STANDARD HOME DC PACKET THAT WAS MADE AT HER REQUEST.
== END 2025-03-25 13:45 | DRG 177 ==
LOC: ER 18:01 → ICUE 21:06 → PCU 21:06 → MEDS 21:06 → PCU 03-17 00:09 → ICUE 03-18 19:30 → MEDS 03-21 16:44 → ENPENDDIS 03-25 11:50 → MEDS 03-25 13:45
PROVIDERS: Internal Medicine; Internal Medicine Critical Care Medicine; Internal Medicine Nephrology; Nurse Practitioner Acute Care; Student in an Organized Health Care Education/Training Program; ADMIT Student in an Organized Health Care Education/Training Program
PROC: 3E03329 Introduction of Other Anti-infective into Peripheral Vein, Percutaneous Approach (ICD-10-PCS; 2025-03-16)
PROC: 3E033XZ Introduction of Vasopressor into Peripheral Vein, Percutaneous Approach (ICD-10-PCS; principal; 2025-03-18)
PROC: 30233J1 Transfusion of Nonautologous Serum Albumin into Peripheral Vein, Percutaneous Approach (ICD-10-PCS; 2025-03-20)
DX: J15.8 Pneumonia due to other specified bacteria (principal); J96.01 Acute respiratory failure with hypoxia; I50.32 Chronic diastolic (congestive) heart failure; I13.0 Hypertensive heart and chronic kidney disease with heart failure and stage 1 through stage 4 chronic kidney disease, or unspecified chronic kidney disease; T84.54XA Infection and inflammatory reaction due to internal left knee prosthesis, initial encounter; N17.9 Acute kidney failure, unspecified; E44.0 Moderate protein-calorie malnutrition; N40.0 Benign prostatic hyperplasia without lower urinary tract symptoms; F17.220 Nicotine dependence, chewing tobacco, uncomplicated; E78.5 Hyperlipidemia, unspecified; Z66 Do not resuscitate; I48.91 Unspecified atrial fibrillation; K74.60 Unspecified cirrhosis of liver; F10.10 Alcohol abuse, uncomplicated; E87.6 Hypokalemia; E83.39 Other disorders of phosphorus metabolism; I95.89 Other hypotension; N18.31 Chronic kidney disease, stage 3a; D63.1 Anemia in chronic kidney disease; E88.09 Other disorders of plasma-protein metabolism, not elsewhere classified; Z68.35 Body mass index [BMI] 35.0-35.9, adult; Z86.718 Personal history of other venous thrombosis and embolism; Z90.49 Acquired absence of other specified parts of digestive tract; Z96.642 Presence of left artificial hip joint; Z98.890 Other specified postprocedural states; Z79.01 Long term (current) use of anticoagulants; Z79.84 Long term (current) use of oral hypoglycemic drugs; Z79.899 Other long term (current) drug therapy; Z79.891 Long term (current) use of opiate analgesic
CPT/HCPCS: 0528U; 36415; 71045; 71250; 71260; 80053; 80069; 80202; 82330; 82550; 82803; 83605; 83690; 83735; 83880; 84145; 84484; 85014; 85018; 85025; 85379; 86140; 87040; 87070; 87077; 87186; 87205; 93005; 93010; 93970; 94664; 94760; 94762; 96361; 96365; 96375; 97110; 97116; 97162; 97166; 97530; 97535; 99285-25; A9270; J0295; J0456; J0612; J0692; J0696; J0878; J1938; J2543; J3373; J7030; J7040; J7050; J7060; J7121; P9047; Q9967

== ENCOUNTER → 2025-03-16 | Outpatient (CLI) | payer OTHER ==
[~2025-03-16] MED LIST changes: +DAPTOMYCIN500 M3 IV; +MECL12.5 PO; +MIDO5 PO
[2025-03-16 16:02] LABS: BASOPHILS ABSOLUTE AUTO 0.07 K/mm3 (0.00-0.23); BASOPHILS PERCENT AUTO 1 % (0-2); EOSINOPHILS ABSOLUTE AUTO 0.45 K/mm3 (0.00-0.68); EOSINOPHILS PERCENT AUTO 4 % (0-6); Hematocrit 36.2 % (37.0-53.0); Hemoglobin 11.1 g/dL (13.5-17.5); IMMATURE GRAN ABSOLUTE AUTO 0.10 K/mm3 (0.00-0.10); IMMATURE GRAN PERCENT AUTO 1 % (0-1); LYMPHOCYTES ABSOLUTE AUTO 1.37 K/mm3 (0.84-5.20); LYMPHOCYTES PERCENT AUTO 13 % (21-46); MONOCYTES ABSOLUTE AUTO 0.64 K/mm3 (0.16-1.47); MONOCYTES PERCENT AUTO 6 % (4-13); Mean Corpuscular HGB Conc 30.7 g/dL (31.5-36.5); Mean Corpuscular Volume 93 fL (80-100); NEUTROPHILS ABSOLUTE AUTO 8.06 K/mm3 (1.96-9.15); NEUTROPHILS PERCENT AUTO 75 % (41-73); NRBC ABSOLUTE 0.00 K/mm3 (0.00-0.02); NRBC Auto 0.0 /100 WBC (0.0-0.2); Platelet Count 265 K/mm3 (150-400); RDW Coefficient Variation 13.9 % (11.7-14.2); RDW Standard Deviation 47.0 fL (35.1-46.3)
[2025-03-16 16:37] LABS: C-REACTIVE PROTEIN, EXT RANGE 17.0 mg/dL (0.000-0.300)
[2025-03-16 16:40] LABS: Alanine Aminotransfer (ALT/SGP 17.0 U/L (12-78); Albumin, Blood 2.5 g/dL (3.4-5.0); Albumin/Globulin Ratio 0.6 (0.8-1.8); Anion Gap 11.0 mmol/L (3-11); Aspartate Aminotrans (AST/SGOT 22.0 U/L (12-37); Bilirubin, Total 0.6 mg/dL (0.1-1.0); Blood Urea Nitrogen 12.0 mg/dL (8-24); CO2, Blood 24.0 mmol/L (21-32); Calcium, Blood 8.4 mg/dL (8.5-10.1); Chloride, Blood 107.0 mmol/L (98-108); Creatinine, Blood 1.18 mg/dL (0.60-1.20); Globulin, Blood 4.3 g/dL (2.2-4.0); Glucose, Blood 149.0 mg/dL (70-99); Potassium, Blood 3.6 mmol/L (3.5-5.5); Sodium, Blood 138.0 mmol/L (136-145); Total Protein, Blood 6.8 g/dL (6.4-8.2)
== END | disposition home or self-care (01) ==
LOC: LAB SHORT 15:55 → LAB 15:55
PROVIDERS: Internal Medicine Infectious Disease
DX: T84.54XA Infection and inflammatory reaction due to internal left knee prosthesis, initial encounter (principal)
CPT/HCPCS: 80053; 85025; 86140

== ENCOUNTER 2025-05-04 18:39 | Emergency (ER) | payer OTHER ==
[~2025-05-04] VITALS: Ht 167.6 cm; Wt 90.7 kg
[~2025-05-04 18:39] MED LIST changes: +ACET500 PO; +AMOCLA875 PO; +DAPTOMYCIN500 M3 IV; +GUAI600T33 PO; +MECL12.5 PO; +MELATONIN5 M1 PO; +MIDO5 PO; +MINOCYCLINE HC100 M2 PO
[2025-05-04 19:03] LABS: BASOPHILS ABSOLUTE AUTO 0.09 K/mm3 (0.00-0.23); BASOPHILS PERCENT AUTO 1 % (0-2); EOSINOPHILS ABSOLUTE AUTO 0.13 K/mm3 (0.00-0.68); EOSINOPHILS PERCENT AUTO 2 % (0-6); Hematocrit 38.1 % (37.0-53.0); Hemoglobin 11.8 g/dL (13.5-17.5); IMMATURE GRAN ABSOLUTE AUTO 0.03 K/mm3 (0.00-0.10); IMMATURE GRAN PERCENT AUTO 0 % (0-1); LYMPHOCYTES ABSOLUTE AUTO 2.55 K/mm3 (0.84-5.20); LYMPHOCYTES PERCENT AUTO 35 % (21-46); MONOCYTES ABSOLUTE AUTO 0.52 K/mm3 (0.16-1.47); MONOCYTES PERCENT AUTO 7 % (4-13); Mean Corpuscular HGB Conc 31.0 g/dL (31.5-36.5); Mean Corpuscular Volume 89 fL (80-100); NEUTROPHILS ABSOLUTE AUTO 3.95 K/mm3 (1.96-9.15); NEUTROPHILS PERCENT AUTO 54 % (41-73); NRBC ABSOLUTE 0.00 K/mm3 (0.00-0.02); NRBC Auto 0.0 /100 WBC (0.0-0.2); Platelet Count 236 K/mm3 (150-400); RDW Coefficient Variation 15.5 % (11.7-14.2); RDW Standard Deviation 50.4 fL (35.1-46.3)
[2025-05-04 19:19] LABS: Prothrombin Time Results 12.4 Sec (9.7-11.5)
[2025-05-04] MEDS ORDERED: NS 1,000 ML IV SCH (19:25)
[2025-05-04 19:28] LABS: Alanine Aminotransfer (ALT/SGP 19.0 U/L (12-78); Albumin, Blood 3.1 g/dL (3.4-5.0); Albumin/Globulin Ratio 0.9 (0.8-1.8); Anion Gap 9.0 mmol/L (3-11); Aspartate Aminotrans (AST/SGOT 23.0 U/L (12-37); Bilirubin, Total 0.3 mg/dL (0.1-1.0); Blood Urea Nitrogen 64.0 mg/dL (8-24); CO2, Blood 32.0 mmol/L (21-32); Calcium, Blood 8.7 mg/dL (8.5-10.1); Chloride, Blood 97.0 mmol/L (98-108); Creatinine, Blood 1.84 mg/dL (0.60-1.20); Globulin, Blood 3.5 g/dL (2.2-4.0); Glucose, Blood 135.0 mg/dL (70-99); Potassium, Blood 3.3 mmol/L (3.5-5.5); Sodium, Blood 135.0 mmol/L (136-145); Total Protein, Blood 6.6 g/dL (6.4-8.2)
[2025-05-04 22:00] VITALS: BP 114/86
== END 2025-05-04 22:17 | disposition home or self-care (01) ==
LOC: ER 18:39
PROVIDERS: Physician Assistant
DX: N17.9 Acute kidney failure, unspecified (principal); I95.9 Hypotension, unspecified; Z79.899 Other long term (current) drug therapy; Z79.2 Long term (current) use of antibiotics; F17.220 Nicotine dependence, chewing tobacco, uncomplicated; I11.0 Hypertensive heart disease with heart failure; I50.30 Unspecified diastolic (congestive) heart failure
CPT/HCPCS: 71045; 80053; 85025; 85610; 85730; 93005; 93010; 96360; 99285-25; J7030